=== PATIENT | female | born 1945 | race Caucasian/White ===

== ENCOUNTER 2016-08-18 02:53 | Observation (INO) | payer OTHER ==
--- NOTE | 2016-08-18 03:35 | PDOC ---
History of Present Illness - General History Source: Patient Exam Limitations: No Limitations - History of Present Illness Initial Comments: 08/18/16 04:11 The patient is a 71-year-old female, with a significant past medical history of epilepsy(on topiramate), AFib(on warfarin), CAD, asthma, COPD, PE (2012), hypertension, hyperlipidemia, and hypothyroidism, who presents to the emergency department complaining of chest pain that last night. The patient reports she was sleeping when she began to feel a sharp pain that woke her out of her sleep. The patient initially rated the pain as a 9/10, but has since become dull in nature and now rated as a 7/10. The patient states her pain radiated and down her left arm and into the lower left aspect of her back. She reports she has experienced previous episodes of chest pain in the past, but typically the chest pain ceases. During todays episode she reports taking nitroglycerin with no relief. The patient reports associated SOB, but denies any nausea, vomiting, diaphoresis, or palpitations. She also reports general malaise and weakness for the past 2-3 days. The patient denies any fever, chills, cough, headache, and dizziness. The patient denies dysuria, frequency, urgency, and hematuria. Allergies: None reported. Past Surgical History: Lung biopsy, thoracotomy Social History: Former smoker (Quit in 1988). Denies alcohol or drug use. Lives with son and sister. Family History: Mother stomach cancer, sister breast cancer, brother CAD, and father emphysema. <Jorge Stringer - Last Filed: 08/18/16 05:59> - General History Source: Patient <Nino Corado - Last Filed: 08/18/16 06:00> - General Stated Complaint: SHORTNESS OF BREATH Time Seen by Provider: 08/18/16 03:35 Past History <Jorge Stringer - Last Filed: 08/18/16 05:59> - Past Medical History Anemia: No Asthma: Yes Cancer: No Cardiac Disorders: Yes (CAD, "irregular heart beat") CVA: No COPD: (SOB) CHF: No Dementia: No Diabetes: No GI Disorders: Yes (RECTAL BLEEDING) Disorders: No HTN: Yes Hypercholesterolemia: Yes Liver Disease: No Suicide Attempt (Hx): No Seizures: Yes (EPILEPSY) Thyroid Disease: Yes (HYPO) - Surgical History Abdominal Surgery: No Appendectomy: No Cardiac Surgery: No Cholecystectomy: No Gastric Stapling: No GI Surgery: No Lung Surgery: Yes (BX) Neurologic Surgery: No Orthopedic Surgery: No - Immunization History Td Vaccination: Yes TDAP Vaccination: Yes Immunization Up to Date: Yes - Psycho/Social/Smoking Cessation Hx Anxiety: No Suicidal Ideation: No Smoking Status: Yes Smoking History: Former smoker Have you smoked in the past 12 months: No Number of Cigarettes Smoked Daily: 0 If you are a former smoker, when did you quit?: 1988 Hx Alcohol Use: No Drug/Substance Use Hx: No Substance Use Type: None Hx Substance Use Treatment: No <Nino Corado - Last Filed: 08/18/16 06:00> - Past Medical History Allergies/Adverse Reactions: Allergies Allergy/AdvReac Type Severity Reaction Status Date / Time No Known Drug Allergies Allergy Verified 08/18/16 04:10 Home Medications: Ambulatory Orders Aspirin [ASA -] 81 mg PO DAILY 03/10/12 Atorvastatin Ca [Lipitor] 40 mg PO DAILY 03/10/12 Calcium Carbonate/Vitamin D3 [Calcium 600-Vit D3 200 Tablet] 1 each PO BID 03/10 Topiramate 25 mg PO BID 03/10/12 Warfarin Sodium 3 mg PO ASDIR 09/22/13 Furosemide [Lasix -] 40 mg PO DAILY 06/18/15 Levothyroxine [Synthroid -] 50 mcg PO DAILY 06/18/15 Multivit-Min/FA/Lycopen/Lutein [Centrum Silver Tablet] 1 each PO DAILY 08/31/15 Albuterol Sulfate Inhaler - [Ventolin HFA Inhaler -] 2 inh PO PRN PRN 09/01/15 Anastrozole [Arimidex -] 1 mg PO DAILY 08/18/16 Metoprolol Tartrate 25 mg PO BID 08/18/16 Raloxifene HCl 60 mg PO DAILY 08/18/16 Review of Systems - Review of Systems Able to Perform ROS?: Yes Comments:: 08/18/16 04:11 CONSTITUTIONAL: Present: +generalized weakness, +fatigue Absent: fever, chills, diaphoresis, malaise, loss of appetite HEENT: Absent: rhinorrhea, nasal congestion, throat pain, throat swelling, difficulty swallowing, mouth swelling, ear pain, eye pain, visual Changes CARDIOVASCULAR: Present: +chest pain radiating into her back Absent: syncope, palpitations, irregular heart rate, lightheadedness, peripheral edema RESPIRATORY: Present: +shortness of breath Absent: cough, dyspnea with exertion, orthopnea, wheezing, stridor, hemoptysis GASTROINTESTINAL: Absent: abdominal pain, abdominal distension, nausea, vomiting, diarrhea, constipation, melena, hematochezia GENITOURINARY: Absent: dysuria, frequency, urgency, hesitancy, hematuria, flank pain, genital pain MUSCULOSKELETAL: Absent: myalgia, arthralgia, joint swelling SKIN: Absent: rash, itching, pallor HEMATOLOGIC/IMMUNOLOGIC: Absent: easy bleeding, easy bruising, lymphadenopathy, frequent infections ENDOCRINE: Absent: unexplained weight gain, unexplained weight loss, heat intolerance, cold intolerance NEUROLOGIC: Absent: headache, focal weakness or paresthesias, dizziness, unsteady gait, seizure, mental status changes, bladder or bowel incontinence PSYCHIATRIC: Absent: anxiety, depression, suicidal or homicidal ideation, hallucinations. <Jorge Stringer - Last Filed: 08/18/16 05:59> *Physical Exam - Vital Signs Last Vital Signs Temp Pulse Resp BP Pulse Ox 97.8 F 62 17 108/76 94 L 08/18/16 03:53 08/18/16 03:53 08/18/16 03:53 08/18/16 03:53 08/18/16 03:53 - Physical Exam Comments: 08/18/16 04:12 GENERAL: Well developed, well nourished. Awake and alert. No acute distress. HEENT: Normocephalic, atraumatic. PERRLA, EOMI. No conjunctival pallor. Sclera are non- icteric. Moist mucous membranes. Oropharynx is clear. NECK: Supple. Full ROM. No JVD. Carotid pulses 2+ and symmetric, without bruits. No thyromegaly. No lymphadenopathy. CARDIOVASCULAR: Regular rate and rhythm. No murmurs, rubs, or gallops. Distal pulses are 2+ and symmetric. PULMONARY: +Diminished breath sounds bilaterally. No evidence of respiratory distress. No wheezing, rales or rhonchi. ABDOMINAL: Soft. Non-tender. Non-distended. No rebound or guarding. No organomegaly. Normoactive bowel sounds. MUSCULOSKELETAL Normal range of motion at all joints. No bony deformities or tenderness. No CVA tenderness. EXTREMITIES: No cyanosis. No clubbing. No edema. No calf tenderness. SKIN: Warm and dry. Normal capillary refill. No rashes. No jaundice. NEUROLOGICAL: Alert, awake, appropriate. Cranial nerves 2-12 intact. No deficits to light touch and temperature in face, upper extremities and lower extremities. No motor deficits in the in face, upper extremities and lower extremities. Normoreflexic in the upper and lower extremities. Normal speech. Toes are down- going bilaterally. Gait is normal without ataxia. PSYCHIATRIC: Cooperative. Good eye contact. Appropriate mood and affect. <Jorge Stringer - Last Filed: 08/18/16 05:59> Heart Score/ECG Review - ECG Impressions Comment:: 08/18/16 04:13 Vent. rate: 70 bpm IMPRESSION: Normal sinus rhythm. Left bundle branch block. <Jorge Stringer - Last Filed: 08/18/16 05:59> ED Treatment Course - LABORATORY CBC & Chemistry Diagram: 08/18/16 04:20 08/18/16 04:24 <Jorge Stringer - Last Filed: 08/18/16 05:59> - LABORATORY CBC & Chemistry Diagram: 08/18/16 04:20 08/18/16 04:24 <Nino Corado - Last Filed: 08/18/16 06:00> Medical Decision Making - Medical Decision Making 08/18/16 06:00 Dr. Corado: The scribe's documentation has been prepared under my direction and personally reviewed by me in its entirery. I confirm that the note above accurately reflects all work, treatment, procedures, and medical decision making performed by me. <Nino Corado - Last Filed: 08/18/16 06:00> *DC/Admit/Observation/Transfer - Attestations Scribe Attestion: 08/18/16 04:13 Documentation prepared by Jorge Stringer, acting as medical assistant dermatology for Nino Corado DO. <Jorge Stringer - Last Filed: 08/18/16 05:59> - Discharge Dispostion Admit: Yes <Nino Corado - Last Filed: 01/20/17 06:00> Diagnosis at time of Disposition: CAD (coronary artery disease), Chest pain - Discharge Dispostion Condition at time of disposition: Fair
[2016-08-18 04:03] VITALS: BMI 32.4
[2016-08-18 04:37] LABS: BASOPHIL 0.8 % (0-2.0); EOSINOPHIL 0.2 % (0-4.5); MCH 29.1 pg (25.7-33.7); MCHC 32.7 g/dl (32.0-36.0); MEAN PLT VOLUME 8.5 fl (7.5-11.1); NEUTROPHILS 77.1 % (42.8-82.8); PLATELET COUNT 294 K/MM3 (134-434); RDW 15.3 % (11.6-15.6); WHITE BLOOD COUNT 8.8 K/mm3 (4.0-10.0)
[2016-08-18 04:47] LABS: INR 3.27 (0.82-1.09); PROTHROMBIN TIME (PATIENT) 36.9 SEC (9.98-11.88)
[2016-08-18 04:59] LABS: BILIRUBIN,TOTAL 0.2 mg/dL (0.2-1.0); CALCIUM 8.7 mg/dL (8.5-10.1); TOT PROT 6.5 g/dl (6.4-8.2)
[2016-08-18 05:03] LABS: TROPONIN I < 0.02 ng/ml (0.00-0.05)
[2016-08-18] MEDS ORDERED: LEVOTHYROXINE NA 25 MCG TABLET (FP) ONE (09:11)
[2016-08-18] MEDS: LEVOTHYROXINE NA 50 MCG TABLET (FP) PO SCH (09:14)
[2016-08-18] MEDS ORDERED: HEPARIN NA (PORCINE) 5,000 UNITS/ML 1ML VIAL SQ SCH (10:00)
[2016-08-18] MEDS ORDERED: PATIENT'S OWN MEDICATION (NON-FORMULARY) (Multivit-Min/Fa/Lycopen/Lutein [Centrum Silver T PO SCH (10:00)
[2016-08-18] MEDS: ASPIRIN 81 MG CHEWABLE TABLETS PO SCH (10:01)
[2016-08-18] MEDS: ANASTROZOLE 1 MG TABLET PO SCH (10:01)
[2016-08-18] MEDS: TOPIRAMATE 25 MG TABLET (FP) PO SCH ×2 (10:02→22:28)
[2016-08-18] MEDS: METOPROLOL TARTRATE 25 MG TABLET (FP) PO SCH ×2 (10:02→22:05)
[2016-08-18] MEDS: FUROSEMIDE 40 MG TABLET (FP) PO SCH (10:02)
[2016-08-18 10:17] LABS: TROPONIN I < 0.02 ng/ml (0.00-0.05)
--- NOTE | 2016-08-18 10:59 | EKG ---
Test Reason : Blood Pressure : / mmHG Vent. Rate : 070 BPM Atrial Rate : 070 BPM P-R Int : 174 ms QRS Dur : 138 ms QT Int : 426 ms P-R-T Axes : 078 -02 060 degrees QTc Int : 460 ms POOR DATA QUALITY, INTERPRETATION MAY BE ADVERSELY AFFECTED NORMAL SINUS RHYTHM LEFT BUNDLE BRANCH BLOCK ABNORMAL ECG WHEN COMPARED WITH ECG OF 09-JUN-2016 03:45, NO SIGNIFICANT CHANGE WAS FOUND Confirmed by SUSAN SANTIAGO MD ([id number]) on 08/18/2016 10:58:44 AM Referred By: Confirmed By:SUSAN SANTIAGO MD
--- NOTE | 2016-08-18 11:45 | HP ---
CHIEF COMPLAINT: Chest pain and shortness of breath PCP: Dr. Ponce @ [facility] Care [address] [facility], [place] [address], [address] Julien, [employer] HISTORY OF PRESENT ILLNESS: Mrs. Conley is a 71 year old female with a significant PMHx of epilepsy (last seizure 10 years ago - on Topiramate) Atrial fibrillation (on Coumadin), CAD, asthma, COPD, PE in 2012, HTN, hyperlipidemia and hypothyroidism. She presented to the ED with complaints of chest pain that began last night. She stated that she was asleep and was awoken when she began to feel a "very sharp pain" midsternal that radiated down her left arm and to her left side of her back. She states that she has had a similar pain before but it usually subsides quickly. However, during last night's episodes, she took Nitroglycerin without relief. She reports associated shortness of breath with the chest pain . She denies nausea, vomiting, diaphoresis, palpitations, headache, dizziness, dysuria, frequency, urgency or hematuria. ER course was notable for: (1) Chest pain associated shortness of breath (2) INR 3.27 (3) Hyperglycemia: 158 (4) BNP 323 Recent Travel: denies PAST MEDICAL HISTORY: epilepsy(on topiramate), AFib (on warfarin), CAD, asthma , COPD, PE (2012), hypertension, hyperlipidemia, and hypothyroidism, PAST SURGICAL HISTORY: Lung biopsy, thoractomy Social History: Smoking: former smoker - quit in 1988 Alcohol: denies Drugs: denies Family History: Mother stomach cancer, sister breast cancer, brother CAD, and father emphysema She lives with her family Allergies: none No Known Drug Allergies Allergy (Verified 08/18/16 04:10) HOME MEDICATIONS: Medication Instructions Recorded Aspirin [ASA -] 81 mg PO DAILY 03/10/12 Atorvastatin Ca [Lipitor] 40 mg PO DAILY 03/10/12 Calcium Carbonate/Vitamin D3 1 each PO BID 03/10/12 [Calcium 600-Vit D3 200 Tablet] Topiramate 25 mg PO BID 03/10/12 Warfarin Sodium 3 mg PO ASDIR 09/22/13 Furosemide [Lasix -] 40 mg PO DAILY 06/18/15 Levothyroxine [Synthroid -] 50 mcg PO DAILY 06/18/15 Multivit-Min/FA/Lycopen/Lutein 1 each PO DAILY 08/31/15 [Centrum Silver Tablet] Albuterol Sulfate Inhaler - 2 inh PO PRN PRN 09/01/15 [Ventolin HFA Inhaler -] Anastrozole [Arimidex -] 1 mg PO DAILY 08/18/16 Metoprolol Tartrate 25 mg PO BID 08/18/16 Raloxifene HCl 60 mg PO DAILY 08/18/16 REVIEW OF SYSTEMS CONSTITUTIONAL: Absent: fever, chills, diaphoresis, generalized weakness, malaise, loss of appetite, weight change HEENT: Absent: rhinorrhea, nasal congestion, throat pain, throat swelling, difficulty swallowing, mouth swelling, ear pain, eye pain, visual changes CARDIOVASCULAR: PRESENT: chest pain with inspiration, intermittent shortness of beath, no coughing RESPIRATORY: Absent: cough, dyspnea with exertion, orthopnea, wheezing, stridor, hemoptysis GASTROINTESTINAL: Absent: abdominal pain, abdominal distension, nausea, vomiting, diarrhea, constipation, melena, hematochezia GENITOURINARY: Absent: dysuria, frequency, urgency, hesitancy, hematuria, flank pain, genital pain MUSCULOSKELETAL: Absent: myalgia, arthralgia, joint swelling, back pain, neck pain SKIN: Absent: rash, itching, pallor HEMATOLOGIC/IMMUNOLOGIC: On Coumadin for PE, Afib, DVT ENDOCRINE: Absent: unexplained weight gain, unexplained weight loss, heat intolerance, cold intolerance NEUROLOGIC: Absent: headache, focal weakness or paresthesias, dizziness, unsteady gait, seizure, mental status changes, bladder or bowel incontinence PSYCHIATRIC: Absent: anxiety, depression, suicidal or homicidal ideation, hallucinations. PHYSICAL EXAMINATION Vital Signs - 24 hr 08/18/16 07:43 Respiratory 18 Rate O2 Sat by Pulse 98 Oximetry (%) GENERAL: Awake, alert, and fully oriented, in no acute distress. HEAD: Normal with no signs of trauma. EYES: Pupils equal, round and reactive to light, extraocular movements intact, sclera anicteric, conjunctiva clear. No lid lag. EARS, NOSE, THROAT: Ears normal, nares patent, oropharynx clear without exudates. Moist mucous membranes. NECK: Normal range of motion, supple without lymphadenopathy, JVD, or masses. LUNGS: Breath sounds equal, clear to auscultation bilaterally, no accessory muscle use HEART: Regular rate and rhythm ABDOMEN: Soft, nontender, not distended, normoactive bowel sounds, no guarding, no rebound, no masses. No hepatomegaly or splenomegaly. UPPER EXTREMITIES: No peripheral edema. LOWER EXTREMITIES: No peripheral edema. NEUROLOGICAL: Normal speech. Normal gait. PSYCHIATRIC: Cooperative. Good eye contact. Appropriate mood and affect. SKIN: Warm, dry, normal turgor, no rashes or lesions noted. Laboratory Results - last 24 hr 08/18/16 09:20 Creatine Kinase 44 Troponin I < 0.02 ASSESSMENT/PLAN: Mrs. Conley is a 71 year old female with a significant PMHx of epilepsy (last seizure 10 years ago - on Topiramate) Atrial fibrillation (on Coumadin), CAD, asthma, COPD, PE in 2012, HTN, hyperlipidemia, breast mass? (on Anastrazole) and hypothyroidism. She presented to the ED with complaints of chest pain that began last night. She stated that she was asleep and was awoken when she began to feel a "very sharp pain" midsternal that radiated down her left arm and to her left side of her back. She states that she has had a similar pain before but it usually subsides quickly. However, during last night's episodes, she took Nitroglycerin without relief. She reports associated shortness of breath with the chest pain . She denies nausea, vomiting, diaphoresis, palpitations, headache, dizziness, dysuria, frequency, urgency or hematuria. Cardiology: Chest pain - acute Assessment/Plan: Troponins negative x 2, awaiting 3rd troponin Chest xray 08/18/2016 unrevealing EKG 08/18/2016 Normal sinus rhythm with left BBB, abnormal EKG when compared with EKG of 06/09/2016, no significant changes Echo ordered On ASA 81mg, Statin, on Metoprolol Tartrate 25mg BID Last Echo 10/25/15 which shows LV mildly reduced, mild>mod mitral regurg, mild to mod, tricuspid regurg, right vent. sys pressure 30-40mmHg, mild aortic stenosis Cardiology consulted Hypertension - chronic Assessment/Plan: Monitor BP Well controlled on current regimen. Hyperlipidemia - chronic Assessment/Plan: On Lipitor 40mg Lipid panel in a.m. Atrial fibrillation - rate controlled Assessment/Plan: On Coumadin, rate controlled INR 3.27 - On Coumadin 3mg on Sunday, Sunday and Coumadin 4mg on Sunday thru Sunday Will hold Coumadin tonight secondary to INR. 3.27 Will recheck INR in a.m. Pulmonary Shortness of breath - acute Assessment/Plan: Shortness of breath with deep inspiration, currently tolerating room air Chest xray 08/18/2016 unrevealing Oxygen at [address]N Will order CT/CTA to evaluate for PE Asthma/COPD - chronic Assessment/Plan: stable Duonebs PRN Neurology Epilepsy - chronic Assessment/Plan: Last seizure 10 years ago. Seizure precautions Endocrine: Hyperglycemia on admission Assessment/Plan: Check HgbA1c in a.m. F.E.N. Fluids: Tolerating PO intake Electrolytes: within normal limits Nutrition: Low sodium diet Prophylaxis: DVT: on warfarin, INR therapeutic - hold tonight dose, INR in a.m. Disposition: Continues to require observation for acute chest pain and shortness of breath. Awaiting cardiology consult and CTA. Full Code. Visit type - Emergency Visit Emergency Visit: Yes ED Registration Date: 08/18/16 Care time: The patient presented to the Emergency Department on the above date and was hospitalized for further evaluation of their emergent condition. - New Patient This patient is new to me today: Yes Date on this admission: 08/18/16 - Critical Care Critical Care patient: No
[2016-08-18 16:46] LABS: TROPONIN I < 0.02 ng/ml (0.00-0.05)
[2016-08-18] MEDS ORDERED: WARFARIN NA 2 MG TABLET (UD) PO SCH (18:00)
[2016-08-18] MEDS ORDERED: PT OWN MED DRAWER 7, Y5N ONE (21:57)
[2016-08-18] MEDS: ATORVASTATIN CA 40 MG TABLET (FP) PO SCH (22:05)
[2016-08-19] MEDS: LEVOTHYROXINE NA 50 MCG TABLET (FP) PO SCH (06:01)
[2016-08-19] MEDS ORDERED: PT OWN MED DRAWER 7, Y5N ONE ×3 (07:52→21:38)
[2016-08-19 08:18] LABS: INR 2.79 (0.82-1.09); PROTHROMBIN TIME (PATIENT) 31.3 SEC (9.98-11.88)
[2016-08-19 09:25] LABS: BASOPHIL 1.1 % (0-2.0); EOSINOPHIL 3.5 % (0-4.5); MCH 29.4 pg (25.7-33.7); MCHC 32.6 g/dl (32.0-36.0); MEAN CELL VOLUME 90.2 fl (80-96); MEAN PLT VOLUME 8.7 fl (7.5-11.1); NEUTROPHILS 50.3 % (42.8-82.8); PLATELET COUNT 251 K/MM3 (134-434); RDW 15.3 % (11.6-15.6); WHITE BLOOD COUNT 7.5 K/mm3 (4.0-10.0)
[2016-08-19] MEDS: ANASTROZOLE 1 MG TABLET PO SCH (09:48)
[2016-08-19] MEDS: MULTIVITAMINS (DAILY MVI) TABLET (FP) PO SCH (09:48)
[2016-08-19] MEDS: TOPIRAMATE 25 MG TABLET (FP) PO SCH ×2 (09:49→21:43)
[2016-08-19] MEDS: ASPIRIN 81 MG CHEWABLE TABLETS PO SCH (09:51)
[2016-08-19] MEDS: FUROSEMIDE 40 MG TABLET (FP) PO SCH (09:51)
[2016-08-19] MEDS: METOPROLOL TARTRATE 25 MG TABLET (FP) PO SCH ×2 (09:51→21:43)
--- NOTE | 2016-08-19 10:23 | PN ---
Physical Exam: SUBJECTIVE: Patient seen and examined INR now 2.79 will resume coumadin 4 mg tonight Reports improvement in her SOB and chest pain No further c/o nausea or vomiting OBJECTIVE: Vital Signs Period Temp Pulse Resp BP Sys/Landis Pulse Ox Last 24 Hr 97.6 F-98.2 F 56-70 18-20 104-121/54-56 GENERAL: The patient is awake, alert, and fully oriented, in no acute distress. HEAD: Normal with no signs of trauma. EYES: PERRL, extraocular movements intact, sclera anicteric, conjunctiva clear. ENT: Ears normal, nares patent, oropharynx clear without exudates, moist mucous membranes. NECK: Trachea midline, full range of motion, supple. LUNGS: Breath sounds clear to auscultation bilaterally, diminished BS bibasilar. no wheezes, no crackles, no accessory muscle use. HEART: S1, S2 rrr ABDOMEN: Soft, nontender, nondistended, normoactive bowel sounds, no guarding, no rebound, no hepatosplenomegaly, no masses. EXTREMITIES: 2+ pulses, warm, well-perfused, Trace LE edema. NEUROLOGICAL: Cranial nerves II through XII grossly intact. Normal speech, gait not observed. PSYCH: Normal mood, normal affect. SKIN: Warm, dry, normal turgor Laboratory Results - last 24 hr 08/19/16 08/19/16 08/19/16 05:45 05:45 05:45 WBC RBC Hgb Hct MCV MCHC RDW Plt Count MPV Neutrophils % Lymphocytes % Monocytes % Eosinophils % Basophils % INR 2.79 H Hemoglobin A1c % Triglycerides 106 D Cholesterol 120 Total LDL Cholesterol 63 HDL Cholesterol 50 TSH 3.04 D 08/19/16 08/19/16 05:45 07:20 WBC 7.5 RBC 3.75 Hgb 11.0 Hct 33.9 MCV 90.2 MCHC 32.6 RDW 15.3 Plt Count 251 MPV 8.7 Neutrophils % 50.3 D Lymphocytes % 39.5 D Monocytes % 5.6 D Eosinophils % 3.5 D Basophils % 1.1 INR Hemoglobin A1c % 6.1 H Triglycerides Cholesterol Total LDL Cholesterol HDL Cholesterol TSH Active Medications Generic Name Dose Route Start Last Admin Trade Name Freq PRN Reason Stop Dose Admin Anastrozole 1 mg 08/18/16 10:00 08/19/16 09:48 Arimidex - PO 1 mg DAILY GURVINDER Administration Aspirin 81 mg 08/18/16 10:00 08/19/16 09:51 Asa - PO 81 mg DAILY GURVINDER Administration Atorvastatin Calcium 40 mg 08/18/16 22:00 08/18/16 22:05 Lipitor - PO 40 mg HS GURVINDER Administration Furosemide 40 mg 08/18/16 10:00 08/19/16 09:51 Lasix - PO 40 mg DAILY GURVINDER Administration Levothyroxine Sodium 50 mcg 08/18/16 07:00 08/19/16 06:01 Synthroid - PO 50 mcg AM GURVINDER Administration Metoprolol Tartrate 25 mg 08/18/16 10:00 08/19/16 09:51 Lopressor - PO 25 mg BID GURVINDER Administration Multivitamins/Minerals/Vitamin C 1 tab 08/19/16 10:00 08/19/16 09:48 Tab-A-Vit - PO 1 tab DAILY GURVINDER Administration Non-Formulary Medication 60 mg 08/18/16 10:00 Raloxifene Hcl [Raloxifene Hcl] PO DAILY [facility] Topiramate 25 mg 08/18/16 10:00 08/19/16 09:49 Topamax - PO 25 mg BID GURVINDER Administration Warfarin Sodium 4 mg 08/19/16 18:00 Coumadin - PO DAILY@1800 [facility] ASSESSMENT/PLAN: 71 y/o female with PMHx of epilepsy (last seizure 10 years ago) on Topamax, AFib (on AC), DVT, PE 2012, CAD, asthma, COPD, HTN, HLD, breast mass (on arimidex) and hypothyroidism. She presented to the ED with complaints of chest pain that began last night that radiates down her left arm and to her left side of her back. She took Nitroglycerin without relief. She reports associated shortness of breath with the chest pain. In the ER her INR was found to be 3.27 and her coumadin was held. CTA negative for PE, cxr neg for active disease and ECG NSR witrh left BBB vent rate 70 bpm. She was admit to Tele observation for further eval and management of her SOB and chest pain. 1 Chest pain: improved -continuous tele monitoring -enzymes x 3 neg -c/w asa 81 mg BB and statin -oxygen prn -cardio consult pending 2 Hypertension: BP within acceptable limits -Monitor BP -low salt diet -c/w BB and home dose of lasix 3 Hyperlipidemia: lipid panel within acceptable limits -continue Lipitor 40mg 4 Afib on coumadin: INR today 2.79 -to resume coumadin 4 mg this evening. -Of note patient was on at home Coumadin 3mg on Sunday, Sunday and Coumadin 4mg on Sunday thru Sunday -INR 08/20 -Continue with BB 5 Asthama/COPD: Still mild dyspnea at rest -CTA neg -cxr no active disease -oxygen as needed -repeat cxr -duonebs prn 6 Epilepsy controlled . Last seizure 10 years ago. -C/W topamax as ordered -Seizure precautions 7 A1c slightly above goal (6.1) -diet changed to diabetic sodium controlled -fingersticks BIDAC-if above goal will need to add ISS 8 hypothyroidism:TSH within acceptable limits -c/w synthroid 9 osteoporosis: -c/w raloxifene 10 DVP PPx -on Coumadin Disposition: Continues to require observation for acute chest pain and shortness of breath. Awaiting cardiology consult and repeat cxr. Full Code. Visit type - Emergency Visit Emergency Visit: No - New Patient This patient is new to me today: Yes Date on this admission: 08/21/16 - Critical Care Critical Care patient: No
[2016-08-19 10:46] LABS: ALBUMIN 2.8 g/dl (3.4-5.0); BILIRUBIN,TOTAL 0.4 mg/dL (0.2-1.0); CALCIUM 8.8 mg/dL (8.5-10.1); TOT PROT 5.9 g/dl (6.4-8.2)
[2016-08-19] MEDS ORDERED: ALBUTEROL SO4 2.5/IPRATROPIUM 0.5 INH SOL 3 ML VIAL.NEB. NEB PRN (12:47)
[2016-08-19] MEDS ORDERED: ACETAMINOPHEN 325 MG TABLET (FP) PO PRN (15:49)
[2016-08-19] MEDS: WARFARIN NA 2 MG TABLET (UD) PO SCH (17:11)
[2016-08-19] MEDS: ATORVASTATIN CA 40 MG TABLET (FP) PO SCH (21:43)
[2016-08-20] MEDS: LEVOTHYROXINE NA 50 MCG TABLET (FP) PO SCH (06:49)
[2016-08-20 07:40] LABS: BASOPHIL 1.3 % (0-2.0); EOSINOPHIL 2.6 % (0-4.5); MCH 29.5 pg (25.7-33.7); MCHC 33.1 g/dl (32.0-36.0); MEAN CELL VOLUME 89.2 fl (80-96); MEAN PLT VOLUME 8.2 fl (7.5-11.1); NEUTROPHILS 56.3 % (42.8-82.8); PLATELET COUNT 263 K/MM3 (134-434); RDW 15.1 % (11.6-15.6); WHITE BLOOD COUNT 9.9 K/mm3 (4.0-10.0)
--- NOTE | 2016-08-20 07:52 | CONSULT ---
Consult - text type - Consultation Consultation Note: Cardiology 71 year old female with a significant PMHx of epilepsy (last seizure 10 years ago - on Topiramate) Atrial fibrillation (on Coumadin), CAD, asthma, COPD, PE in 2013, HTN, hyperlipidemia and hypothyroidism. She presented to the ED with complaints of chest pain, dyspnea, LUE symptoms. . She denies nausea, vomiting, diaphoresis, palpitations, headache, dizziness, dysuria, frequency, urgency or hematuria. Recent Travel: denies PAST MEDICAL HISTORY: epilepsy(on topiramate), AFib (on warfarin), CAD, asthma , COPD, PE (2012), hypertension, hyperlipidemia, and hypothyroidism, PAST SURGICAL HISTORY: Lung biopsy, thoractomy Social History: Smoking: former smoker - quit in 1988 Alcohol: denies Drugs: denies Family History: Mother stomach cancer, sister breast cancer, brother CAD, and father emphysema She lives with her family Allergies: none No Known Drug Allergies Allergy (Verified 08/18/16 04:10) PE: normal cardio-pulmonary exam abdomen soft no leg edema Impression: atypical chronic cardiac symptoms no evidence of ID or CHF NSR, LBBB EF 40-45% chronic, severe MR last nuclear stress test 10/12 unremarkable last [facility] 2013 normal paroxysmal afib in past, PE on lifelong warfarin lipids umremarkable Rec: Lexiscan nuclear stress test
[2016-08-20 08:09] LABS: INR 2.09 (0.82-1.09); PROTHROMBIN TIME (PATIENT) 23.3 SEC (9.98-11.88)
[2016-08-20 08:23] LABS: ALBUMIN 2.9 g/dl (3.4-5.0); BILIRUBIN,TOTAL 0.4 mg/dL (0.2-1.0); CALCIUM 8.4 mg/dL (8.5-10.1); TOT PROT 6.2 g/dl (6.4-8.2)
[2016-08-20] MEDS: MULTIVITAMINS (DAILY MVI) TABLET (FP) PO SCH (09:58)
[2016-08-20] MEDS: FUROSEMIDE 40 MG TABLET (FP) PO SCH (09:58)
[2016-08-20] MEDS: [UNRECOGNIZED DRUG - OTHER] PO SCH (09:58)
[2016-08-20] MEDS: METOPROLOL TARTRATE 25 MG TABLET (FP) PO SCH ×2 (09:58→23:00)
[2016-08-20] MEDS: ASPIRIN 81 MG CHEWABLE TABLETS PO SCH (09:58)
[2016-08-20] MEDS: ANASTROZOLE 1 MG TABLET PO SCH (09:58)
[2016-08-20] MEDS: TOPIRAMATE 25 MG TABLET (FP) PO SCH ×2 (09:59→21:57)
--- NOTE | 2016-08-20 11:38 | PN ---
Physical Exam: SUBJECTIVE: Patient seen and examined. She still has residual chest pain, to which refers to her L arm. She says it is improved from when she was admitted. OBJECTIVE: Vital Signs Period Temp Pulse Resp BP Sys/Landis Pulse Ox Last 24 Hr 97.7 F-98.2 F 60-70 20-20 111-143/60-72 96 PE Neuro: alert, awake, cn 2-12 intact Pulm: L base crackles, left posterior lung incision healed CV: s1 s2 rrr no mrg Abd: s nt nd +bs, abd skin fold Ext: trace le edema, +DP pulses CBCD WBC 9.9 K/mm3 (4.0-10.0) D 08/20/16 05:20 RBC 3.83 M/mm3 (3.60-5.2) 08/20/16 05:20 Hgb 11.3 GM/dL (10.7-15.3) 08/20/16 05:20 Hct 34.2 % (32.4-45.2) 08/20/16 05:20 MCV 89.2 fl (80-96) 08/20/16 05:20 MCHC 33.1 g/dl (32.0-36.0) 08/20/16 05:20 RDW 15.1 % (11.6-15.6) 08/20/16 05:20 Plt Count 263 K/MM3 (134-434) 08/20/16 05:20 MPV 8.2 fl (7.5-11.1) 08/20/16 05:20 CMP Sodium 143 mmol/L (136-145) 08/20/16 05:20 Potassium 3.5 mmol/L (3.5-5.1) 08/20/16 05:20 Chloride 107 mmol/L (98-107) 08/20/16 05:20 Carbon Dioxide 27 mmol/L (21-32) 08/20/16 05:20 Anion Gap 9 (8-16) 08/20/16 05:20 BUN 21 mg/dL (7-18) H D 08/20/16 05:20 Creatinine 1.0 mg/dL (0.55-1.02) 08/20/16 05:20 Creat Clearance w eGFR 54.66 (>60) 08/20/16 05:20 Calcium 8.4 mg/dL (8.5-10.1) L 08/20/16 05:20 Total Bilirubin 0.4 mg/dL (0.2-1.0) 08/20/16 05:20 AST 15 U/L (15-37) 08/20/16 05:20 ALT 17 U/L (12-78) 08/20/16 05:20 Alkaline Phosphatase 71 U/L (45-117) 08/20/16 05:20 Total Protein 6.2 g/dl (6.4-8.2) L 08/20/16 05:20 Albumin 2.9 g/dl (3.4-5.0) L 08/20/16 05:20 08/20/16 05:20 INR 2.09 H 08/18/16 08/18/16 08/18/16 04:24 09:20 15:30 Hemoglobin A1c % Troponin I < 0.02 < 0.02 B-Natriuretic Peptide 323.82 H Triglycerides Cholesterol Total LDL Cholesterol HDL Cholesterol TSH 08/18/16 08/19/16 08/19/16 15:30 05:45 05:45 Hemoglobin A1c % Troponin I < 0.02 B-Natriuretic Peptide Triglycerides 106 D Cholesterol 120 Total LDL Cholesterol 63 HDL Cholesterol 50 TSH 3.04 D Active Medications Generic Name Dose Route Start Last Admin Trade Name Freq PRN Reason Stop Dose Admin Acetaminophen 650 mg 08/19/16 15:49 Tylenol - PO Q6H PRN FEVER OR PAIN Albuterol/Ipratropium 1 amp 08/19/16 12:47 08/19/16 18:14 Duoneb - NEB 1 amp Q6H PRN Administration SHORTNESS OF BREATH Anastrozole 1 mg 08/18/16 10:00 08/20/16 09:58 Arimidex - PO 1 mg DAILY GURVINDER Administration Aspirin 81 mg 08/18/16 10:00 08/20/16 09:58 Asa - PO 81 mg DAILY GURIVNDER Administration Atorvastatin Calcium 40 mg 08/18/16 22:00 08/19/16 21:43 Lipitor - PO 40 mg HS GURVINDER Administration Docusate Sodium 100 mg 08/20/16 10:00 Colace - PO DAILY GURVINDER Furosemide 40 mg 08/18/16 10:00 08/20/16 09:58 Lasix - PO 40 mg DAILY GURVINDER Administration Levothyroxine Sodium 50 mcg 08/18/16 07:00 08/20/16 06:49 Synthroid - PO 50 mcg AM GURVINDER Administration Metoprolol Tartrate 25 mg 08/18/16 10:00 08/20/16 09:58 Lopressor - PO 25 mg BID GURVINDER Administration Multivitamins/Minerals/Vitamin C 1 tab 08/19/16 10:00 08/20/16 09:58 Tab-A-Vit - PO 1 tab DAILY GURVINDER Administration (Raloxifenpatient's 60 mg 08/20/16 10:00 08/20/16 09:58 Own Medication (Non- PO 60 mg Formulary) DAILY GURVINDER Administration Nystatin 1 applic 08/20/16 11:15 Nystop Powder - TP DAILY GURVINDER Topiramate 25 mg 08/18/16 10:00 08/20/16 09:59 Topamax - PO 25 mg BID GURVINDER Administration Warfarin Sodium 4 mg 08/19/16 18:00 08/19/16 17:11 Coumadin - PO 4 mg DAILY@1800 GURVINDER Administration Assessment: 71 year old female with PMHx of epilepsy (last seizure 10 years ago ) on Topamax, AFib (on AC), DVT, PE 2012, CAD, asthma, COPD, HTN, HLD, breast mass (on arimidex) and hypothyroidism admitted with chest pain with associated sob. Plan: 1. Chest pain with typical and atypical features - Nuclear stress test tomorrow - Cont ASA - Cont metoprolol 25mg BID - Cardiology seeing 2. HTN - Controlled - Cont lasix 40mg daily - Cont bb 3. HLD - Continue Lipitor 40mg 4. A fib, controlled - Continue Coumadin 4mg Hs - Daily INR 5. Asthma/COPD/hx of PE - No shortness of breath reported - CTA neg for PE 6. Epilepsy - Last seizure 10 years ago - Cont topamax 7. DM II - Hgb a1c - Diabetic diet 8. Hypothyroidism - Cont Synthroid - TSH wnl 9. Osteoporosis - Cont Raloxifene 10. DVT - on AC Visit type - Emergency Visit Emergency Visit: Yes ED Registration Date: 08/18/16 Care time: The patient presented to the Emergency Department on the above date and was hospitalized for further evaluation of their emergent condition. - New Patient This patient is new to me today: Yes Date on this admission: 08/20/16 - Critical Care Critical Care patient: No
[2016-08-20] MEDS: DOCUSATE SODIUM 100 MG CAPSULE (FP) PO SCH (12:30)
[2016-08-20] MEDS: NYSTATIN POWDER 100,000 UNITS/GM - 15 GM TOPICAL POWDER TP SCH (15:04)
[2016-08-20] MEDS: WARFARIN NA 2 MG TABLET (UD) PO SCH (17:10)
[2016-08-20] MEDS: ATORVASTATIN CA 40 MG TABLET (FP) PO SCH (21:57)
[2016-08-21] MEDS: LEVOTHYROXINE NA 50 MCG TABLET (FP) PO SCH (06:01)
[2016-08-21 07:19] LABS: INR 2.57 (0.82-1.09); PROTHROMBIN TIME (PATIENT) 28.8 SEC (9.98-11.88)
[2016-08-21 07:36] LABS: CALCIUM 8.7 mg/dL (8.5-10.1)
[2016-08-21 07:37] LABS: CREATININE 1.1 mg/dL (0.55-1.02)
[2016-08-21] MEDS ORDERED: DIPYRIDAMOLE STRESS TEST 50 MG in DEXTROSE 5%-WATER - 40 ML IVPB ONE (10:00)
[2016-08-21] MEDS: [UNRECOGNIZED DRUG - OTHER] PO SCH (13:30)
[2016-08-21] MEDS: ASPIRIN 81 MG CHEWABLE TABLETS PO SCH (13:39)
[2016-08-21] MEDS: DOCUSATE SODIUM 100 MG CAPSULE (FP) PO SCH (13:39)
[2016-08-21] MEDS: NYSTATIN POWDER 100,000 UNITS/GM - 15 GM TOPICAL POWDER TP SCH (13:40)
[2016-08-21] MEDS: METOPROLOL TARTRATE 25 MG TABLET (FP) PO SCH (13:40)
[2016-08-21] MEDS: ANASTROZOLE 1 MG TABLET PO SCH (13:40)
[2016-08-21] MEDS: FUROSEMIDE 40 MG TABLET (FP) PO SCH (13:40)
[2016-08-21] MEDS: TOPIRAMATE 25 MG TABLET (FP) PO SCH (13:41)
[2016-08-21] MEDS: MULTIVITAMINS (DAILY MVI) TABLET (FP) PO SCH (13:41)
[2016-08-21 14:49] VITALS: BP 154/76; PULSE 105; TEMP 98.1
--- NOTE | 2016-08-21 15:57 | DS ---
Physical Exam: SUBJECTIVE: Patient seen and examined. No issues, tolerated stress test. Ready to go home OBJECTIVE: Vital Signs Period Temp Pulse Resp BP Sys/Landis Pulse Ox Last 24 Hr 96.3 F-98.1 F 57-105 18-20 114-154/49-76 96-98 PE Neuro: alert, awake, cn 2-12 intact Pulm: L base crackles, left posterior lung incision healed CV: s1 s2 rrr no mrg Abd: s nt nd +bs, abd skin fold Ext: trace le edema, +DP pulses Laboratory Results - last 24 hr 08/20/16 08/21/16 08/21/16 17:06 05:35 05:35 INR 2.57 H Sodium 144 Potassium 3.6 Chloride 106 Carbon Dioxide 27 Anion Gap 11 BUN 22 H Creatinine 1.1 H POC Glucometer 96 Random Glucose 88 Calcium 8.7 08/21/16 06:52 INR Sodium Potassium Chloride Carbon Dioxide Anion Gap BUN Creatinine POC Glucometer 92 Random Glucose Calcium HOSPITAL COURSE: Date of Admission:08/18/16 Date of Discharge: 08/21/16 Minutes to complete discharge: 35 Discharge Summary Reason For Visit: CHEST PAIN,CAD Current Active Problems COPD (chronic obstructive pulmonary disease) (Acute) Chest pain (Acute) Hypokalemia (Acute) Mass of lingula of lung (Acute) Mass of lower lobe of left lung (Acute) Pneumonia (Acute) Subtherapeutic anticoagulation (Acute) Asthma (Chronic) Atrial fibrillation (Chronic) CAD (coronary artery disease) (Chronic) Hyperlipidemia (Chronic) Hypertension (Chronic) Hypothyroidism (Chronic) Seizure disorder (Chronic) Hospital Course: Initial Hospital Course: Briefly, this 71 year old female with a significant PMHx of epilepsy (last seizure 10 years ago - on Topiramate) Atrial fibrillation (on Coumadin), CAD, asthma, COPD, PE in 2012, HTN, HLD, and hypothyroidism, LLL thoracotomy ~10yrs ago presented to the ED with complaints of chest pain that began last night. She stated that she was asleep and was awoken when she began to feel a "very sharp pain" midsternal that radiated down her left arm and to her left side of her back. The pain was sharper than it had been in the past and did not subside on its own. She took Nitroglycerin without relief and had associated shortness of breath with the chest pain Subsequent Hospital Course/Progress Note/Discharge Summary: Assessment: 71 year old female with PMHx of epilepsy (last seizure 10 years ago ) on Topamax, AFib (on AC), DVT, PE 2012, CAD, asthma/COPD, HTN, HLD, breast mass (on arimidex) and hypothyroidism admitted with chest pain with associated sob. Plan: 1. Chest pain with typical and atypical features - Nuclear stress test shows EF 64%, fixed inferior and inferoseptal defect - Cont ASA - Cont metoprolol 25mg BID - D/w results with Dr. garcia, will see patient next week in office, pt aware and agrees 2. HTN - Controlled - Cont lasix 40mg daily - Cont bb 3. HLD - Continue Lipitor 40mg 4. A fib, controlled - Continue Coumadin as directed by home regimen - Daily INR 5. Asthma/COPD/hx of PE - No shortness of breath reported - CTA neg for PE 6. Epilepsy - Last seizure 10 years ago - Cont topamax 7. DM II - Hgb a1c 6.1 - Diabetic diet 8. Hypothyroidism - Cont Synthroid - TSH wnl 9. Osteoporosis - Cont Raloxifene Dispo: - Home with above meds - Cardiology follow up next week, pt aware and agrees to above Condition: Stable - Instructions Diet, Activity, Other Instructions: Dr. Ponce @ [address] [phone] Dr Alcaraz, Transportation Maintenance Specialist Dr. Julien, Business Intern Referrals: Grey Julien MD [Staff Physician] - Lissa Capps MD [Staff Physician] - Laly Lewis MD [Staff Physician] - Disposition: HOME - Home Medications Comprehensive Discharge Medication List: Ambulatory Orders Aspirin [ASA -] 81 mg PO DAILY 03/10/12 Atorvastatin Ca [Lipitor] 40 mg PO DAILY 03/10/12 Calcium Carbonate/Vitamin D3 [Calcium 600-Vit D3 200 Tablet] 1 each PO BID 03/10 Topiramate 25 mg PO BID 03/10/12 Warfarin Sodium 3 mg PO ASDIR 09/22/13 Furosemide [Lasix -] 40 mg PO DAILY 06/18/15 Levothyroxine [Synthroid -] 50 mcg PO DAILY 06/18/15 Multivit-Min/FA/Lycopen/Lutein [Centrum Silver Tablet] 1 each PO DAILY 08/31/15 Albuterol Sulfate Inhaler - [Ventolin HFA Inhaler -] 2 inh PO PRN PRN 09/01/15 Anastrozole [Arimidex -] 1 mg PO DAILY 08/18/16 Metoprolol Tartrate 25 mg PO BID 08/18/16 Raloxifene HCl 60 mg PO DAILY 08/18/16 This patient is new to me today: No Emergency Visit: Yes ED Registration Date: 08/18/16 Care time: The patient presented to the Emergency Department on the above date and was hospitalized for further evaluation of their emergent condition. Critical Care patient: No - Discharge Referral Referred to [facility] No
[2016-08-21] MEDS: WARFARIN NA 2 MG TABLET (UD) PO SCH (17:03)
== END 2016-08-21 18:09 | disposition home or self-care (01) ==
LOC: JER 02:53 → UNDOADMOB 06:03 → INTOOBSV 06:03 → JERBED 06:03 → J4W 14:41 → JERBED 14:41 → J4W 16:09
PROVIDERS: ADMIT Internal Medicine; ATTEND Nurse Practitioner Acute Care
DX: R07.89 Other chest pain (principal); I25.10 Atherosclerotic heart disease of native coronary artery without angina pectoris; J45.909 Unspecified asthma, uncomplicated; J44.9 Chronic obstructive pulmonary disease, unspecified; I10 Essential (primary) hypertension; I48.91 Unspecified atrial fibrillation; E78.5 Hyperlipidemia, unspecified; E03.9 Hypothyroidism, unspecified; G40.802 Other epilepsy, not intractable, without status epilepticus; I44.7 Left bundle-branch block, unspecified; M81.8 Other osteoporosis without current pathological fracture; Z87.891 Personal history of nicotine dependence; Z79.01 Long term (current) use of anticoagulants; Z86.711 Personal history of pulmonary embolism
CPT/HCPCS: 36415; 71010-TC; 71275-TC; 78452-TC; 80048; 80053; 80061; 82550; 83036; 83721; 83880; 84443; 84484; 85025; 85610; 93005; 93010; 93017; 93306-TC; 94640; 99284-25; A9502; G0378; J1245; J1644

== ENCOUNTER 2016-12-26 23:14 | Emergency (ER) | payer OTHER ==
[2016-12-26 23:57] VITALS: BP 150/64; PULSE 74; TEMP 97.9; BMI 32.4
[2016-12-27] MEDS ORDERED: PANTOPRAZOLE SODIUM 40 MG in SODIUM CHLORIDE 100 ML IVPB ONE (01:09)
--- NOTE | 2016-12-27 01:09 | PDOC ---
History of Present Illness - General History Source: Patient Exam Limitations: No Limitations - History of Present Illness Initial Comments: 12/27/16 02:11 The patient is a 71 year old female with significant past medical history of epilepsy (on topiramate), afib (on coumadin), CAD, asthma/COPD, PE (2012), hypertension, hyperlipidemia, breast mass (on arimidex), and hypothyroidism who presents to the ED BIBA home for chest pain that began less than 24 hours ago. Patient describes her chest pain as a pressure-like sensation that is localized in the epigastric/midsternal region radiating towards the back with no exacerbating or alleviating factors. Reports associated SOB. States she did not take anything for her pain. Denies lightheadedness, diaphoresis, palpitations, jaw pain, shoulder pain, arm pain, leg swelling, nausea, or vomiting. No recent travels or sick contacts. The patient denies fever, chills, cough, and diarrhea. Allergies: NKDA Social History: former smoker - quit in 1988. No alcohol or drug use reported. Family History: Mother stomach cancer, sister breast cancer, brother CAD, and father emphysema. Past Surgical History: Lung biopsy, thoracotomy PCP: Dr. Laly Barrow Cardio: Dr. Grey Julien Physician Office Nurse: Dr. Jefry Alcaraz <Tawnya Ramirez - Last Filed: 12/27/16 02:12> - General History Source: Patient <Nino Corado - Last Filed: 12/27/16 05:45> - General Chief Complaint: Chest Pain Stated Complaint: CHEST PAIN Time Seen by Provider: 12/27/16 00:37 Past History <Tawnya Ramirez - Last Filed: 12/27/16 02:12> - Past Medical History Anemia: No Asthma: Yes Cancer: No Cardiac Disorders: Yes (CAD, "irregular heart beat") CVA: No COPD: (SOB) CHF: No Dementia: No Diabetes: No GI Disorders: Yes (RECTAL BLEEDING) Disorders: No HTN: Yes Hypercholesterolemia: Yes Liver Disease: No Suicide Attempt (Hx): No Seizures: Yes (EPILEPSY) Thyroid Disease: Yes (HYPO) - Surgical History Abdominal Surgery: No Appendectomy: No Cardiac Surgery: No Cholecystectomy: No Gastric Stapling: No GI Surgery: No Lung Surgery: Yes (BX) Neurologic Surgery: No Orthopedic Surgery: No - Immunization History Td Vaccination: Yes TDAP Vaccination: Yes Immunization Up to Date: Yes - Psycho/Social/Smoking Cessation Hx Anxiety: No Suicidal Ideation: No Smoking Status: Yes Smoking History: Never smoked Have you smoked in the past 12 months: No Number of Cigarettes Smoked Daily: 0 If you are a former smoker, when did you quit?: 1988 Information on smoking cessation initiated: No 'Breaking Loose' booklet given: 08/18/16 Hx Alcohol Use: No Drug/Substance Use Hx: No Substance Use Type: None Hx Substance Use Treatment: No <Nino Corado - Last Filed: 12/27/16 05:45> - Past Medical History Allergies/Adverse Reactions: Allergies Allergy/AdvReac Type Severity Reaction Status Date / Time No Known Drug Allergies Allergy Verified 12/26/16 23:55 Home Medications: Ambulatory Orders Aspirin [ASA -] 81 mg PO DAILY 03/10/12 Atorvastatin Ca [Lipitor] 40 mg PO DAILY 03/10/12 Calcium Carbonate/Vitamin D3 [Calcium 600-Vit D3 200 Tablet] 1 each PO BID 03/10 Topiramate 25 mg PO BID 03/10/12 Warfarin Sodium 3 mg PO ASDIR 09/22/13 Furosemide [Lasix -] 40 mg PO DAILY 06/18/15 Levothyroxine [Synthroid -] 50 mcg PO DAILY 06/18/15 Multivit-Min/FA/Lycopen/Lutein [Centrum Silver Tablet] 1 each PO DAILY 08/31/15 Albuterol Sulfate Inhaler - [Ventolin HFA Inhaler -] 2 inh PO PRN PRN 09/01/15 Anastrozole [Arimidex -] 1 mg PO DAILY 08/18/16 Metoprolol Tartrate 25 mg PO BID 08/18/16 Raloxifene HCl 60 mg PO DAILY 08/18/16 Review of Systems - Review of Systems Able to Perform ROS?: Yes Comments:: 12/27/16 02:12 CONSTITUTIONAL: Absent: fever, chills, diaphoresis, generalized weakness, malaise, loss of appetite HEENT: Absent: rhinorrhea, nasal congestion, throat pain, throat swelling, difficulty swallowing, ear pain, eye pain, visual Changes CARDIOVASCULAR: +chest pain (pain in the epigastric/midsternal region radiating towards the back ) Absent: syncope, palpitations, irregular heart rate, lightheadedness, peripheral edema RESPIRATORY: +SOB Absent: cough, dyspnea with exertion, orthopnea, wheezing GASTROINTESTINAL: Absent: abdominal distension, nausea, vomiting, diarrhea, constipation GENITOURINARY: Absent: dysuria, frequency, urgency, hesitancy, hematuria, flank pain MUSCULOSKELETAL: Absent: arthralgia, joint swelling SKIN: Absent: rash, itching, pallor NEUROLOGIC: Absent: headache, focal weakness or paresthesias, dizziness, seizure, mental status changes, bladder or bowel incontinence <MargaAlen da silvaTawnya - Last Filed: 12/27/16 02:12> *Physical Exam - Vital Signs Last Vital Signs Temp Pulse Resp BP Pulse Ox 97.9 F 74 18 150/64 97 12/26/16 23:55 12/26/16 23:55 12/26/16 23:55 12/26/16 23:55 12/26/16 23:55 - Physical Exam Comments: 12/27/16 02:12 GENERAL: Morbidly obese. Well developed, well nourished. Awake and alert. No acute distress. HEENT: Normocephalic, atraumatic. PERRLA, EOMI. No conjunctival pallor. Sclera are non- icteric. Moist mucous membranes. Oropharynx is clear. NECK: Supple. Full ROM. No JVD. Carotid pulses 2+ and symmetric, without bruits. CARDIOVASCULAR: Regular rate and rhythm. No murmurs, rubs, or gallops. Distal pulses are 2+ and symmetric. PULMONARY: No evidence of respiratory distress. Lungs clear to auscultation bilaterally. No wheezing, rales or rhonchi. ABDOMINAL: Soft. Epigastric tenderness. Non-distended. No rebound or guarding. Normoactive bowel sounds. MUSCULOSKELETAL Normal range of motion at all joints. No bony deformities or tenderness. EXTREMITIES: No cyanosis. No clubbing. No edema. No calf tenderness. SKIN: Warm and dry. Normal capillary refill. No rashes. No jaundice. NEUROLOGICAL: Alert, awake, appropriate. Cranial nerves 2-12 intact. Moving all extremities. No gross neurological deficits. <GhassanyanetMarcus da silvata - Last Filed: 12/27/16 02:12> - Vital Signs Last Vital Signs Temp Pulse Resp BP Pulse Ox 97.9 F 74 18 150/64 97 12/26/16 23:55 12/26/16 23:55 12/26/16 23:55 12/26/16 23:55 12/26/16 23:55 <Nino Corado - Last Filed: 12/27/16 05:45> Heart Score/ECG Review - ECG Impressions Comment:: 12/27/16 02:12 Sinus rhythm with occasional PVCs and PACs @83bpm LBBB Abnormal ECG <Tawnya Ramirez - Last Filed: 12/27/16 02:12> ED Treatment Course - LABORATORY CBC & Chemistry Diagram: 12/27/16 02:08 12/27/16 02:08 <Nino Corado - Last Filed: 12/27/16 05:45> Medical Decision Making - Medical Decision Making 12/27/16 05:45 Dr. Corado: The scribe's documentation has been prepared under my direction and personally reviewed by me in its entirery. I confirm that the note above accurately reflects all work, treatment, procedures, and medical decision making performed by me. <Nino Corado - Last Filed: 12/27/16 05:45> *DC/Admit/Observation/Transfer - Attestations Scribe Attestion: 12/27/16 02:12 Documentation prepared by Tawnya Ramirez, acting as manager medical for Nino Corado MD/. <Tawnya Ramirez - Last Filed: 12/27/16 02:12> - Discharge Dispostion Admit: No <Nino Corado - Last Filed: 12/27/16 05:45> Diagnosis at time of Disposition: Chest pain Qualifiers: Chest pain type: unspecified Qualified Code(s): R07.9 - Chest pain, unspecified - Discharge Dispostion Disposition: HOME Condition at time of disposition: Stable - Referrals Referrals: Laly Lewis MD [Primary Care Provider] - - Patient Instructions Printed Discharge Instructions: DI for Chest Pain
[2016-12-27 02:17] LABS: BASOPHIL 0.8 % (0-2.0); EOSINOPHIL 1.3 % (0-4.5); MCH 28.8 pg (25.7-33.7); MCHC 32.4 g/dl (32.0-36.0); MEAN CELL VOLUME 88.6 fl (80-96); MEAN PLT VOLUME 7.8 fl (7.5-11.1); NEUTROPHILS 71.2 % (42.8-82.8); PLATELET COUNT 270 K/MM3 (134-434); WHITE BLOOD COUNT 9.8 K/mm3 (4.0-10.0)
[2016-12-27 02:37] LABS: INR 2.24 (0.82-1.09); PROTHROMBIN TIME (PATIENT) 25.1 SEC (9.98-11.88)
[2016-12-27 02:38] LABS: ALBUMIN 2.9 g/dl (3.4-5.0); ANION GAP 12 (8-16); BILIRUBIN,TOTAL 0.1 mg/dL (0.2-1.0); CALCIUM 8.8 mg/dL (8.5-10.1); CO2 23 mmol/L (21-32); GLUCOSE,RANDOM 131 mg/dL (74-106); MAGNESIUM 2.3 mg/dL (1.8-2.4); SGOT/AST 15 U/L (15-37); SGPT/ALT 19 U/L (12-78); TOT PROT 6.4 g/dl (6.4-8.2)
[2016-12-27 02:41] LABS: ALK PHOS 79 U/L (45-117); TROPONIN I < 0.02 ng/ml (0.00-0.05)
[2016-12-27] MEDS ORDERED: PANTOPRAZOLE SODIUM 100 ML IVPB ONE (03:41)
[2016-12-27 05:38] LABS: TROPONIN I < 0.02 ng/ml (0.00-0.05)
--- NOTE | 2016-12-28 16:33 | EKG ---
Test Reason : Blood Pressure : / mmHG Vent. Rate : 067 BPM Atrial Rate : 067 BPM P-R Int : 180 ms QRS Dur : 142 ms QT Int : 432 ms P-R-T Axes : 057 -02 043 degrees QTc Int : 456 ms NORMAL SINUS RHYTHM LEFT BUNDLE BRANCH BLOCK ABNORMAL ECG WHEN COMPARED WITH ECG OF 18-AUG-2016 04:12, NONSPECIFIC T WAVE ABNORMALITY NO LONGER EVIDENT IN LATERAL LEADS Confirmed by CARRILLO MALIN, JOAO ([id number]) on 12/28/2016 4:33:10 PM Referred By: Confirmed By:JOAO VIZCAINO MD
--- NOTE | 2016-12-28 16:34 | EKG ---
Test Reason : Blood Pressure : / mmHG Vent. Rate : 083 BPM Atrial Rate : 083 BPM P-R Int : 154 ms QRS Dur : 136 ms QT Int : 386 ms P-R-T Axes : 089 -20 099 degrees QTc Int : 453 ms POOR DATA QUALITY, INTERPRETATION MAY BE ADVERSELY AFFECTED SINUS RHYTHM WITH OCCASIONAL PREMATURE VENTRICULAR COMPLEXES AND PREMATURE ATRIAL COMPLEXES LEFT BUNDLE BRANCH BLOCK ABNORMAL ECG WHEN COMPARED WITH ECG OF 18-AUG-2016 04:12, PREMATURE VENTRICULAR COMPLEXES ARE NOW PRESENT PREMATURE ATRIAL COMPLEXES ARE NOW PRESENT INVERTED T WAVES HAVE REPLACED NONSPECIFIC T WAVE ABNORMALITY IN LATERAL LEADS Confirmed by JOAO VIZCAINO MD ([id number]) on 12/28/2016 4:34:24 PM Referred By: Confirmed By:JOAO VIZCAINO MD
== END 2016-12-27 06:45 | disposition home or self-care (01) ==
LOC: JER 23:14
PROC: 3E033GC Introduction of Other Therapeutic Substance into Peripheral Vein, Percutaneous Approach (ICD-10-PCS; principal; 2016-12-26)
DX: R07.89 Other chest pain (principal); I25.10 Atherosclerotic heart disease of native coronary artery without angina pectoris; I10 Essential (primary) hypertension; I48.91 Unspecified atrial fibrillation; Z79.01 Long term (current) use of anticoagulants; G40.909 Epilepsy, unspecified, not intractable, without status epilepticus; J45.909 Unspecified asthma, uncomplicated; J44.9 Chronic obstructive pulmonary disease, unspecified; E78.5 Hyperlipidemia, unspecified; E03.9 Hypothyroidism, unspecified
CPT/HCPCS: 36415; 71010-TC; 80053; 82550; 83690; 83735; 83880; 84484; 85025; 85610; 93005; 93010; 99283-25

== ENCOUNTER 2017-08-05 22:33 | Observation (INO) | payer OTHER ==
[2017-08-05] MEDS ORDERED: ACETAMINOPHEN 325 MG TABLET (FP) PO ONE (23:08)
--- NOTE | 2017-08-05 23:15 | PDOC ---
History of Present Illness <Naima Lange - Last Filed: 08/06/17 05:22> - General History Source: Patient Exam Limitations: No Limitations - History of Present Illness Initial Comments: 08/05/17 23:11 Patient is a 72-year-old female with history of CAD, A-Fib on coumadin, asthma/ COPD, E, HTN, HLD, breast mass, hypothyroid, lung biopsy, thoracotomy complaining of cough 1 week, shortness of breath, and chest pain since 8 PM. States the chest pain is sharp and dull left distal sternal border which is painful to the touch and with movement. States she has had a cough for the past week. Took no meds for the pain, no alleviating factors. Denies fever, chills, nausea, vomiting. PMD: Dr. Altamirano PMHX: as above PSCHX: ALL: NKDA GENERAL/CONSTITUTIONAL: [No fever or chills. No weakness. No weight change.] HEAD, EYES, EARS, NOSE AND THROAT: [No change in vision. No ear pain or discharge. No sore throat.] CARDIOVASCULAR: [No chest pain or shortness of breath.] RESPIRATORY: [No cough, wheezing, or hemoptysis.] GASTROINTESTINAL: [No nausea, vomiting, diarrhea or constipation. No rectal bleeding.] GENITOURINARY: [No dysuria, frequency, or change in urination.] MUSCULOSKELETAL: [No joint or muscle swelling or pain. No neck or back pain.] SKIN AND BREASTS: [No rash or easy bruising.] NEUROLOGIC: [No headache, vertigo, loss of consciousness, or loss of sensation.] PSYCHIATRIC: [No depression or anxiety.] ENDOCRINE: [No increased thirst. No abnormal weight change.] HEMATOLOGIC/LYMPHATIC: [No anemia, easy bleeding, (+) history of blood clots.] ALLERGIC/IMMUNOLOGIC: [No hives or skin allergy. No latex allergy.] GENERAL: [The patient is awake, alert, and fully oriented, in no acute distress. ] HEAD: [Normal with no signs of trauma.] EYES: [Pupils equal, round and reactive to light, extraocular movements intact, sclera anicteric, conjunctiva clear.] ENT: [Ears normal, nares patent, oropharynx clear without exudates. Moist mucous membranes.] NECK: [Normal range of motion, supple without lymphadenopathy, JVD, or masses.] LUNGS: [Breath sounds equal, clear to auscultation bilaterally. No wheezes, and no crackles, (+) tenderness left distal sternal chest wall] HEART: [Regular rate and rhythm, normal S1 and S2 without murmur, rub.] ABDOMEN: [Soft, nontender, normoactive bowel sounds. No guarding, no rebound. No masses.] EXTREMITIES: [Normal range of motion, no edema. No clubbing or cyanosis. No cords, erythema, or tenderness.] NEUROLOGICAL: [Cranial nerves II through XII grossly intact. Normal speech, normal gait.] PSYCH: [Normal mood, normal affect.] SKIN: [Warm, Dry, normal turgor, no rashes or lesions noted.] <Isaura Dumont - Last Filed: 08/06/17 08:09> <Margret Salcedo - Last Filed: 08/06/17 08:58> - General Chief Complaint: Congestive Heart Failure Stated Complaint: S.O.B Time Seen by Provider: 08/05/17 23:05 Past History <Naima Lange - Last Filed: 08/06/17 05:22> - Past Medical History Anemia: No Asthma: Yes Cancer: No Cardiac Disorders: Yes (CAD, "irregular heart beat") CVA: No COPD: (SOB) CHF: No Dementia: No Diabetes: No GI Disorders: Yes (RECTAL BLEEDING) Disorders: No HTN: Yes Hypercholesterolemia: Yes Liver Disease: No Seizures: Yes (EPILEPSY) Thyroid Disease: Yes (HYPO) - Surgical History Abdominal Surgery: No Appendectomy: No Cardiac Surgery: No Cholecystectomy: No Gastric Stapling: No GI Surgery: No Lung Surgery: Yes (BX) Neurologic Surgery: No Orthopedic Surgery: No - Immunization History Td Vaccination: Yes TDAP Vaccination: Yes Immunization Up to Date: Yes - Suicide/Smoking/Psychosocial Hx Smoking Status: Yes Smoking History: Former smoker Have you smoked in the past 12 months: No Number of Cigarettes Smoked Daily: 0 If you are a former smoker, when did you quit?: 1988 Information on smoking cessation initiated: No 'Breaking Loose' booklet given: 08/18/16 Hx Alcohol Use: No Drug/Substance Use Hx: No Substance Use Type: None Hx Substance Use Treatment: No <Isaura Dumont - Last Filed: 08/06/17 08:09> <MatiasMargret - Last Filed: 08/06/17 08:58> - Past Medical History Allergies/Adverse Reactions: Allergies Allergy/AdvReac Type Severity Reaction Status Date / Time No Known Drug Allergies Allergy Verified 08/05/17 22:53 Home Medications: Ambulatory Orders Aspirin [ASA -] 81 mg PO DAILY 03/10/12 Atorvastatin Ca [Lipitor] 40 mg PO DAILY 03/10/12 Calcium Carbonate/Vitamin D3 [Calcium 600-Vit D3 200 Tablet] 1 each PO BID 03/10 Topiramate 25 mg PO BID 03/10/12 Warfarin Sodium 3 mg PO ASDIR 09/22/13 Furosemide [Lasix -] 40 mg PO DAILY 06/18/15 Levothyroxine [Synthroid -] 50 mcg PO DAILY 06/18/15 Multivit-Min/FA/Lycopen/Lutein [Centrum Silver Tablet] 1 each PO DAILY 08/31/15 Albuterol Sulfate Inhaler - [Ventolin HFA Inhaler -] 2 inh PO PRN PRN 09/01/15 Anastrozole [Arimidex -] 1 mg PO DAILY 08/18/16 Metoprolol Tartrate 25 mg PO BID 08/18/16 Raloxifene HCl 60 mg PO DAILY 08/18/16 Respiratory Specific PMHX - Complaint Specific PMHX Angina: No Bronchitis: No Pneumonia: No Pulmonary Embolus: Yes TB (Tuberculosis): No <Isaura Dumont - Last Filed: 08/06/17 08:09> *Physical Exam - Vital Signs Last Vital Signs Temp Pulse Resp BP Pulse Ox 98 F 100 H 22 143/73 99 08/05/17 22:48 08/05/17 22:48 08/05/17 22:48 08/05/17 22:48 08/05/17 22:48 <Naima Lange - Last Filed: 08/06/17 05:22> - Vital Signs Last Vital Signs Temp Pulse Resp BP Pulse Ox 98 F 100 H 22 143/73 99 08/05/17 22:48 08/05/17 22:48 08/05/17 22:48 08/05/17 22:48 08/05/17 22:48 <Isaura Dumont - Last Filed: 08/06/17 08:09> - Vital Signs Last Vital Signs Temp Pulse Resp BP Pulse Ox 98 F 100 H 22 143/73 98 08/05/17 22:48 08/05/17 22:48 08/05/17 22:48 08/05/17 22:48 08/06/17 08:01 <Margret Salcedo - Last Filed: 08/06/17 08:58> ED Treatment Course - LABORATORY CBC & Chemistry Diagram: 08/05/17 23:45 08/05/17 23:45 - ADDITIONAL ORDERS Additional order review: Laboratory Results 08/06/17 08/06/17 08/05/17 04:15 01:40 23:54 PT with INR INR Sodium Potassium Chloride Carbon Dioxide Anion Gap BUN Creatinine Creat Clearance w eGFR Random Glucose Calcium Total Bilirubin AST ALT Alkaline Phosphatase Creatine Kinase Troponin I < 0.02 B-Natriuretic Peptide 313.11 H Total Protein Albumin Urine Color Ltyellow Urine Appearance Turbid Urine pH 8.0 Ur Specific [place] 1.009 Urine Protein Negative Urine Glucose (UA) Negative Urine Ketones Negative Urine Blood 1+ H Urine Nitrite Negative Urine Bilirubin Negative Urine Urobilinogen Negative Ur Leukocyte Esterase 2+ H Urine WBC (Auto) 42 Urine RBC (Auto) 5 Ur Epithelial Cells Rare Urine Yeast Few 08/05/17 08/05/17 23:45 23:45 PT with INR 24.80 H INR 2.19 H D Sodium 141 Potassium 3.4 L Chloride 105 Carbon Dioxide 27 Anion Gap 9 BUN 15 Creatinine 1.2 H Creat Clearance w eGFR 44.16 Random Glucose 129 H Calcium 9.3 Total Bilirubin 0.2 D AST 16 ALT 18 D Alkaline Phosphatase 90 Creatine Kinase 50 Troponin I < 0.02 B-Natriuretic Peptide Total Protein 6.9 Albumin 2.8 L Urine Color Urine Appearance Urine pH Ur Specific [place] Urine Protein Urine Glucose (UA) Urine Ketones Urine Blood Urine Nitrite Urine Bilirubin Urine Urobilinogen Ur Leukocyte Esterase Urine WBC (Auto) Urine RBC (Auto) Ur Epithelial Cells Urine Yeast 08/05/17 23:45 RBC 3.84 MCV 90.4 MCHC 32.7 RDW 15.4 MPV 7.5 Neutrophils % 76.0 Lymphocytes % 18.1 D Monocytes % 4.5 Eosinophils % 0.7 Basophils % 0.7 - Medications Given in the ED: ED Medications Discontinued Medications Generic Name Dose Route Start Last Admin Trade Name Freq PRN Reason Stop Dose Admin Acetaminophen 650 mg 08/05/17 23:08 08/06/17 01:32 Tylenol - PO 08/05/17 23:09 650 mg ONCE ONE Administration <Naima Lange - Last Filed: 08/06/17 05:22> - LABORATORY CBC & Chemistry Diagram: 08/05/17 23:45 08/05/17 23:45 - RADIOLOGY Radiology Studies Ordered: Category Date Time Status CHEST PA & LAT [RAD] Stat Radiology 08/05/17 23:07 Ordered <Ryan Dumont - Last Filed: 08/06/17 08:09> - LABORATORY CBC & Chemistry Diagram: 08/05/17 23:45 08/05/17 23:45 - ADDITIONAL ORDERS Additional order review: Laboratory Results 08/06/17 08/06/17 08/05/17 04:15 01:40 23:54 PT with INR INR Sodium Potassium Chloride Carbon Dioxide Anion Gap BUN Creatinine Creat Clearance w eGFR Random Glucose Calcium Total Bilirubin AST ALT Alkaline Phosphatase Creatine Kinase Troponin I < 0.02 B-Natriuretic Peptide 313.11 H Total Protein Albumin Urine Color Ltyellow Urine Appearance Turbid Urine pH 8.0 Ur Specific [place] 1.009 Urine Protein Negative Urine Glucose (UA) Negative Urine Ketones Negative Urine Blood 1+ H Urine Nitrite Negative Urine Bilirubin Negative Urine Urobilinogen Negative Ur Leukocyte Esterase 2+ H Urine WBC (Auto) 42 Urine RBC (Auto) 5 Ur Epithelial Cells Rare Urine Yeast Few 08/05/17 08/05/17 23:45 23:45 PT with INR 24.80 H INR 2.19 H D Sodium 141 Potassium 3.4 L Chloride 105 Carbon Dioxide 27 Anion Gap 9 BUN 15 Creatinine 1.2 H Creat Clearance w eGFR 44.16 Random Glucose 129 H Calcium 9.3 Total Bilirubin 0.2 D AST 16 ALT 18 D Alkaline Phosphatase 90 Creatine Kinase 50 Troponin I < 0.02 B-Natriuretic Peptide Total Protein 6.9 Albumin 2.8 L Urine Color Urine Appearance Urine pH Ur Specific [place] Urine Protein Urine Glucose (UA) Urine Ketones Urine Blood Urine Nitrite Urine Bilirubin Urine Urobilinogen Ur Leukocyte Esterase Urine WBC (Auto) Urine RBC (Auto) Ur Epithelial Cells Urine Yeast 08/05/17 23:45 RBC 3.84 MCV 90.4 MCHC 32.7 RDW 15.4 MPV 7.5 Neutrophils % 76.0 Lymphocytes % 18.1 D Monocytes % 4.5 Eosinophils % 0.7 Basophils % 0.7 - Medications Given in the ED: ED Medications Discontinued Medications Generic Name Dose Route Start Last Admin Trade Name [place] PRN Reason Stop Dose Admin Acetaminophen 650 mg 08/05/17 23:08 08/06/17 01:32 Tylenol - PO 08/05/17 23:09 650 mg ONCE ONE Administration Sodium Chloride 500 ml 08/06/17 08:07 08/06/17 08:26 Normal Saline - IV 08/06/17 08:08 500 ml ONCE ONE Administration <Margret Salcedo - Last Filed: 08/06/17 08:58> Medical Decision Making - Medical Decision Making 08/06/17 05:19 08/06/17 05:22 <Naima Lange - Last Filed: 08/06/17 05:22> - Medical Decision Making 08/06/17 01:17 Patient is a 72-year-old female with history of CAD, A-Fib on coumadin, asthma/ COPD, PE, HTN, HLD, breast mass, hypothyroid, lung biopsy, thoracotomy complaining of cough 1 week, shortness of breath, and chest pain since 8 PM. This is reproducible chest pain however patient is not without risk factors. We will get labs including troponin, EKG, chest x-ray, Tylenol 650 mg for pain. Reassess. Patient states pain is improved with the Tylenol. Labs noted below, PT INR, most likely not a PE. Laboratory Tests 08/05/17 08/05/17 08/05/17 23:45 23:45 23:45 WBC 12.3 H Hgb 11.3 Hct 34.7 Plt Count 425 D PT with INR 24.80 H INR 2.19 H D Sodium 141 Potassium 3.4 L Chloride 105 Carbon Dioxide 27 BUN 15 Creatinine 1.2 H Random Glucose 129 H Troponin I < 0.02 B-Natriuretic Peptide 08/05/17 23:54 WBC Hgb Hct Plt Count PT with INR INR Sodium Potassium Chloride Carbon Dioxide BUN Creatinine Random Glucose Troponin I B-Natriuretic Peptide 313.11 H EKG sinus rhythm with first-degree AV block, left bundle branch block, left axis , unchanged from prior dated 12/27/16. Troponin repeated 2 and is negative Chest x-ray reviewed noted a large process on the left lower lung. Will send for a CT of the chest. 08/06/17 07:25 Called by the radiologist confirming mass on the left lung. We will likely have to be admitted to the hospitalist. will give IVF for the dye load of CT scan. <Isaura Dumont - Last Filed: 08/06/17 08:09> - Medical Decision Making 08/06/17 08:57 case discussed with Kylie RODAS for hospitalist and agrees to OBS pateint. <Margret Salcedo - Last Filed: 08/06/17 08:58> *DC/Admit/Observation/Transfer <Naima Lange - Last Filed: 08/06/17 05:22> <Isaura Dumont - Last Filed: 08/06/17 08:09> - Discharge Dispostion Admit: Yes <Margret Salcedo - Last Filed: 08/06/17 08:58> Diagnosis at time of Disposition: Mass of lower lobe of left lung Chest pain Qualifiers: Chest pain type: other chest pain Qualified Code(s): R07.89 - Other chest pain - Discharge Dispostion Condition at time of disposition: Stable - Referrals Referrals: Laly Lewis MD [Primary Care Provider] -
[2017-08-05 23:59] LABS: BASO % 0.7 % (0-2.0); EOS % 0.7 % (0-4.5); HEMATOCRIT 34.7 % (32.4-45.2); HEMOGLOBIN 11.3 GM/dL (10.7-15.3); LYMPH % 18.1 % (8-40); MCH 29.6 pg (25.7-33.7); MCHC 32.7 g/dl (32.0-36.0); MEAN CELL VOLUME 90.4 fl (80-96); MEAN PLT VOLUME 7.5 fl (7.5-11.1); MONO % 4.5 % (3.8-10.2); PLATELET COUNT 425 K/MM3 (134-434); RBC 3.84 M/mm3 (3.60-5.2); RDW 15.4 % (11.6-15.6); WHITE BLOOD COUNT 12.3 K/mm3 (4.0-10.0)
[2017-08-06 00:24] LABS: INR 2.19 (0.82-1.09); PROTHROMBIN TIME (PATIENT) 24.8 SEC (9.98-11.88)
[2017-08-06 00:31] LABS: ALBUMIN 2.8 g/dl (3.4-5.0); ANION GAP 9 (8-16); BLOOD UREA NITROGEN 15 mg/dL (7-18); CALCIUM 9.3 mg/dL (8.5-10.1); CHLORIDE 105 mmol/L (98-107); CO2 27 mmol/L (21-32); CREATININE 1.2 mg/dL (0.55-1.02); GLUCOSE,RANDOM 129 mg/dL (74-106); POTASSIUM 3.4 mmol/L (3.5-5.1); SGOT/AST 16 U/L (15-37); SGPT/ALT 18 U/L (12-78); SODIUM 141 mmol/L (136-145); TOT PROT 6.9 g/dl (6.4-8.2)
[2017-08-06 00:35] LABS: ALK PHOS 90 U/L (45-117); BILIRUBIN,TOTAL 0.2 mg/dL (0.2-1.0)
[2017-08-06] MEDS ORDERED: ACETAMINOPHEN 325 MG TABLET (FP) ONE (01:28)
[2017-08-06 01:53] LABS: URINE APPEARANCE TURBID; URINE BILIRUBIN NEGATIVE (NEGATIVE); URINE BLOOD 1+ (NEGATIVE); URINE COLOR LTYELLOW; URINE GLUCOSE (UA) NEGATIVE (NEGATIVE); URINE KETONE NEGATIVE (NEGATIVE); URINE NITRITE NEGATIVE (NEGATIVE); URINE PROTEIN NEGATIVE (NEGATIVE); URINE UROBILINOGEN NEGATIVE mg/dL (0.2-1.0)
[2017-08-06 02:08] LABS: URINE LEUK ESTERASE 2+ (NEGATIVE)
[2017-08-06 02:10] LABS: EPI CELLS RARE /HPF (FEW); YEAST FEW
[2017-08-06] MEDS ORDERED: SODIUM CHLORIDE 0.9% 1000 ML INFUS.BAG IV ONE (08:07)
--- NOTE | 2017-08-06 09:45 | HP ---
CHIEF COMPLAINT: Left substernal chest pain PCP: Dr. Ponce HISTORY OF PRESENT ILLNESS: This is a 72 year old female with PMHx of CAD, A.fib (on Coumadin), asthma/COPD , HTN, hyperlipidemia, breast mass (on arimidex), hypothyroidism, DVT, PE 2012, left lung mass (s/p wedge resection, currently managed by PET scans), who presented to the ED with left substernal chest pain. The patient reports the pain started yesterday evening and has improved since arriving in the ED. She reports having pain like this in the past. She also reports shortness of breath which she reports is at her baseline. The patient is also complaining of a non- productive cough that she has had for 1 week. ER course was notable for: (1) Temp 98, pulse 100, BP 143/73, resp 22, O2 99% on RA (2) WBC 12.3 (3) Cr 1.2 (4) Trop x2 negative (5) CT Chest: no definite enhancement of the left lower lobe slightly lobulated mass inseparable from postop scarring and sututres that has increased in size since prior CT on 08/18/16 Recent Travel: denies PAST MEDICAL HISTORY: as above PAST SURGICAL HISTORY: as above Social History: Smoking: Former smoker, quit 1988 Alcohol: Denies Drugs: Denies Family History: Allergies No Known Drug Allergies Allergy (Verified 08/05/17 22:53) HOME MEDICATIONS: Home Medications Medication Instructions Recorded Aspirin [ASA -] 81 mg PO DAILY 03/10/12 Atorvastatin Ca [Lipitor] 40 mg PO DAILY 03/10/12 Calcium Carbonate/Vitamin D3 1 each PO BID 03/10/12 [Calcium 600-Vit D3 200 Tablet] Topiramate 25 mg PO BID 03/10/12 Warfarin Sodium 3 mg PO ASDIR 09/22/13 Furosemide [Lasix -] 40 mg PO DAILY 06/18/15 Levothyroxine [Synthroid -] 50 mcg PO DAILY 06/18/15 Multivit-Min/FA/Lycopen/Lutein 1 each PO DAILY 08/31/15 [Centrum Silver Tablet] Albuterol Sulfate Inhaler - 2 inh PO PRN PRN 09/01/15 [Ventolin HFA Inhaler -] Anastrozole [Arimidex -] 1 mg PO DAILY 08/18/16 Metoprolol Tartrate 25 mg PO BID 08/18/16 Raloxifene HCl 60 mg PO DAILY 08/18/16 REVIEW OF SYSTEMS CONSTITUTIONAL: Absent: fever, chills, diaphoresis, generalized weakness, malaise, loss of appetite, weight change HEENT: Absent: rhinorrhea, nasal congestion, throat pain, throat swelling, difficulty swallowing, mouth swelling, ear pain, eye pain, visual changes CARDIOVASCULAR: Left substernal chest pain that began last night and has improved since arriving in the ED. Absent: syncope, palpitations, irregular heart rate, lightheadedness, peripheral edema RESPIRATORY: Non-productive cough x1 week. + shortness of breath which is at her baseline. Absent: dyspnea with exertion, orthopnea, wheezing, stridor, hemoptysis GASTROINTESTINAL:Absent: abdominal pain, abdominal distension, nausea, vomiting , diarrhea, constipation, melena, hematochezia GENITOURINARY: Absent: dysuria, frequency, urgency, hesitancy, hematuria, flank pain, genital pain MUSCULOSKELETAL: Absent: myalgia, arthralgia, joint swelling, back pain, neck pain SKIN: Absent: rash, itching, pallor HEMATOLOGIC/IMMUNOLOGIC: Absent: easy bleeding, easy bruising, lymphadenopathy, frequent infections ENDOCRINE:Absent: unexplained weight gain, unexplained weight loss, heat intolerance, cold intolerance NEUROLOGIC: Absent: headache, focal weakness or paresthesias, dizziness, unsteady gait, seizure, mental status changes, bladder or bowel incontinence PSYCHIATRIC: Hx of anxiety. Absent: depression, suicidal or homicidal ideation, hallucinations. PHYSICAL EXAMINATION Vital Signs - 24 hr 08/05/17 08/06/17 08/06/17 22:48 08:01 09:00 Temperature 98 F Pulse Rate 100 H Pulse Rate [ 68 Radial] Respiratory 22 24 Rate Blood Pressure 143/73 Blood Pressure 141/67 [Left Arm] O2 Sat by Pulse 99 98 99 Oximetry (%) GENERAL: Awake, alert, and fully oriented, in no acute distress. HEAD: Normal with no signs of trauma. EYES: Pupils equal, round and reactive to light, extraocular movements intact, sclera anicteric, conjunctiva clear. No lid lag. EARS, NOSE, THROAT: Ears normal, nares patent, oropharynx clear without exudates. Moist mucous membranes. NECK: Normal range of motion, supple without lymphadenopathy, JVD, or masses. LUNGS: Breath sounds equal, clear to auscultation bilaterally. No wheezes, and no crackles. No accessory muscle use. HEART: Irregularly irregular. S1 and S2 without murmur, rub or gallop. ABDOMEN: Soft, nontender, not distended, normoactive bowel sounds, no guarding, no rebound, no masses. No hepatomegaly or splenomegaly. MUSCULOSKELETAL: Normal range of motion at all joints. No bony deformities or tenderness. No CVA tenderness. UPPER EXTREMITIES: 2+ pulses, warm, well-perfused. No cyanosis. No clubbing. No peripheral edema. LOWER EXTREMITIES: 2+ pulses, warm, well-perfused. No calf tenderness. No peripheral edema. NEUROLOGICAL: Cranial nerves II-XII intact. Normal speech. Normal gait. PSYCHIATRIC: Cooperative. Good eye contact. Appropriate mood and affect. SKIN: Warm, dry, normal turgor, no rashes or lesions noted, normal capillary refill. Laboratory Results - last 24 hr 08/05/17 08/05/17 08/05/17 23:45 23:45 23:45 WBC 12.3 H RBC 3.84 Hgb 11.3 Hct 34.7 MCV 90.4 MCH 29.6 MCHC 32.7 RDW 15.4 Plt Count 425 D MPV 7.5 Neutrophils % 76.0 Lymphocytes % 18.1 D Monocytes % 4.5 Eosinophils % 0.7 Basophils % 0.7 PT with INR 24.80 H INR 2.19 H D Sodium 141 Potassium 3.4 L Chloride 105 Carbon Dioxide 27 Anion Gap 9 BUN 15 Creatinine 1.2 H Creat Clearance w eGFR 44.16 Random Glucose 129 H Calcium 9.3 Total Bilirubin 0.2 D AST 16 ALT 18 D Alkaline Phosphatase 90 Creatine Kinase 50 Troponin I < 0.02 B-Natriuretic Peptide Total Protein 6.9 Albumin 2.8 L Urine Color Urine Appearance Urine pH Ur Specific [place] Urine Protein Urine Glucose (UA) Urine Ketones Urine Blood Urine Nitrite Urine Bilirubin Urine Urobilinogen Ur Leukocyte Esterase Urine WBC (Auto) Urine RBC (Auto) Ur Epithelial Cells Urine Yeast 08/05/17 08/06/17 08/06/17 23:54 01:40 04:15 WBC RBC Hgb Hct MCV MCH MCHC RDW Plt Count MPV Neutrophils % Lymphocytes % Monocytes % Eosinophils % Basophils % PT with INR INR Sodium Potassium Chloride Carbon Dioxide Anion Gap BUN Creatinine Creat Clearance w eGFR Random Glucose Calcium Total Bilirubin AST ALT Alkaline Phosphatase Creatine Kinase Troponin I < 0.02 B-Natriuretic Peptide 313.11 H Total Protein Albumin Urine Color Ltyellow Urine Appearance Turbid Urine pH 8.0 Ur Specific [place] 1.009 Urine Protein Negative Urine Glucose (UA) Negative Urine Ketones Negative Urine Blood 1+ H Urine Nitrite Negative Urine Bilirubin Negative Urine Urobilinogen Negative Ur Leukocyte Esterase 2+ H Urine WBC (Auto) 42 Urine RBC (Auto) 5 Ur Epithelial Cells Rare Urine Yeast Few Assessment: This is a 72 year old female with PMHx of seizures (on Topamax), CAD , A.fib (on Coumadin), asthma/COPD, HTN, hyperlipidemia, breast mass (on arimidex), hypothyroidism, DVT, PE 2012, left lung mass (s/p wedge resection, currently managed by PET scans), who presented to the ED with left substernal chest pain. Plan: 1) Atypical chest pain - Ruled out for CT - F/u ECHO - F/u cardiology consult 2) Left lung mass - Discussed with Dr. Alcaraz, pt is s/p wedge resection. She follows up with Dr. Zhao as outpatient for q4 month PET scans. Last PET scan 04/2017 negative - F/u CT surgery consult 3) Shortness of breath - Possibly 2/2 lung mass. Patient reports it to be at baseline - F/u pulmonary consult 4) A.fib - Continue Coumadin 3mg weekdays, 2mg weekends - INR therapeutic 5) Seizure disorder - Continue Topamax 6) Hypothyroidism - Continue Synthroid 7) CAD - Continue ASA - Continue Lipitor - Continue Lopressor - Continue Lasix 8) F/E/N: - Sodium controlled diet - Hypokalemia: replete 9) Prophylaxis: - OOB ambulating - On Coumadin 10) Dispo: - Once condition improves CODE STATUS: FULL CODE Visit type - Emergency Visit Emergency Visit: Yes ED Registration Date: 08/06/17 Care time: The patient presented to the Emergency Department on the above date and was hospitalized for further evaluation of their emergent condition. - New Patient This patient is new to me today: Yes Date on this admission: 08/06/17 - Critical Care Critical Care patient: No
[2017-08-06] MEDS ORDERED: CEFTRIAXONE 1 GM/50 ML BAG ONE (11:25)
[2017-08-06] MEDS: CEFTRIAXONE 1 G/50 ML PREMIX 50 ML IVPB SCH (11:40)
--- NOTE | 2017-08-06 12:22 | EKG ---
Test Reason : Blood Pressure : / mmHG Vent. Rate : 083 BPM Atrial Rate : 083 BPM P-R Int : 212 ms QRS Dur : 144 ms QT Int : 398 ms P-R-T Axes : 079 -10 075 degrees QTc Int : 467 ms SINUS RHYTHM WITH 1ST DEGREE A-V BLOCK LEFT BUNDLE BRANCH BLOCK ABNORMAL ECG WHEN COMPARED WITH ECG OF 27-DEC-2016 06:03, [place] INTERVAL HAS INCREASED Confirmed by HOLLY MALIN, LINDSAY ([id number]) on 08/06/2017 12:21:58 PM Referred By: Confirmed By:LINDSAY BARRERA MD
[2017-08-06] MEDS ORDERED: POTASSIUM CHLORIDE TABS 20 MEQ TABLET.ER (FP) PO ONE ×2 (12:27→13:07)
[2017-08-06 13:46] VITALS: BMI 32.5
--- NOTE | 2017-08-06 17:31 | PN ---
Progress Note (short form) - Note Progress Note: PULMONARY CONSULTATION DICTATED 08/06/17 IMP CHEST PAIN LIKELY MUSCULOSKELETAL,? CARDIAC ENLARGING LEFT LUNG MASS ? MALIGNANT, ? INFLAMMATORY ,PREVIOUS BX AND PET SCANS NEGATIVE H/O LEFT THORACOTOMY DYSPNEA COPD AFIB H/O DVT/PE ON AC SEIZURE DISORDER ASHD HYPOTHYROID HLD PLAN INHALED BRONCHODILATORS O2 SOLUMEDROL X 24H THORACIC SURGERY F/U PFTS OUTPATIENT AC ANALGESICS DR SAAVEDRA Problem List - Problems (1) Chest pain Code(s): R07.9 - CHEST PAIN, UNSPECIFIED Qualifiers: Chest pain type: other chest pain Qualified Code(s): R07.89 - Other chest pain; R07.8 - Other chest pain (2) Mass of lower lobe of left lung Code(s): R91.8 - OTHER NONSPECIFIC ABNORMAL FINDING OF LUNG FIELD (3) Anticoagulated on Coumadin Code(s): Z51.81 - ENCOUNTER FOR THERAPEUTIC DRUG LEVEL MONITORING; Z79.01 - [facility] (CURRENT) USE OF ANTICOAGULANTS (4) COPD (chronic obstructive pulmonary disease) Code(s): J44.9 - CHRONIC OBSTRUCTIVE PULMONARY DISEASE, UNSPECIFIED (5) Dyspnea Code(s): R06.00 - DYSPNEA, UNSPECIFIED Qualifiers: Dyspnea type: shortness of breath Qualified Code(s): R06.02 - Shortness of breath (6) Dyspnea or other respiratory complaints Code(s): OVS6365 - (7) Atrial fibrillation Code(s): I48.91 - UNSPECIFIED ATRIAL FIBRILLATION Qualifiers: Atrial fibrillation type: unspecified Qualified Code(s): I48.91 - Unspecified atrial fibrillation (8) CAD (coronary artery disease) Code(s): I25.10 - ATHSCL HEART DISEASE OF [place] CORONARY ARTERY W/O ANG PCTRS (9) Hyperlipidemia Code(s): E78.5 - HYPERLIPIDEMIA, UNSPECIFIED (10) Hypertension Code(s): I10 - ESSENTIAL (PRIMARY) HYPERTENSION Qualifiers: Hypertension type: essential hypertension Qualified Code(s): I10 - Essential (primary) hypertension (11) Hypothyroidism Code(s): E03.9 - HYPOTHYROIDISM, UNSPECIFIED Qualifiers: Hypothyroidism type: unspecified Qualified Code(s): E03.9 - Hypothyroidism , unspecified (12) Seizure disorder Code(s): G40.909 - EPILEPSY, UNSP, NOT INTRACTABLE, WITHOUT STATUS EPILEPTICUS
[2017-08-06] MEDS ORDERED: ALBUTEROL SO4 2.5/IPRATROPIUM 0.5 INH SOL 3 ML VIAL.NEB. NEB PRN (17:34)
--- NOTE | 2017-08-06 17:58 | CONSULT ---
Consult - text type - Consultation Consultation Note: Patient seen and examined 72 y/o patient with remote h/o LLL wedge resection at [facility] > 10 yrs. ago -- pathology showed inflammation. Uriahin followed by CT surgery at [facility] PET avid infrahilar mass--last PET was 04/15. she was seen by CT surgery 05/15. Had prior CT guided bx which revealed scar tissue. 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 lower lobectomy Last Vital Signs Temp Pulse Resp BP Pulse Ox 97.3 F L 88 20 135/74 96 08/06/17 16:50 08/06/17 16:50 08/06/17 16:50 08/06/17 16:50 08/06/17 16:50 Cor: RSR, No murmurs, No gallops Lungs: Clear to P&A Abd: Soft, Normal bowel sounds, No organomegaly Ext:No significant edema Abnormal Lab Results 08/05/17 08/05/17 08/05/17 23:45 23:45 23:45 WBC 12.3 H PT with INR 24.80 H INR 2.19 H D Potassium 3.4 L Creatinine 1.2 H Random Glucose 129 H B-Natriuretic Peptide Albumin 2.8 L Urine Blood Ur Leukocyte Esterase 08/05/17 08/06/17 23:54 01:40 WBC PT with INR INR Potassium Creatinine Random Glucose B-Natriuretic Peptide 313.11 H Albumin Urine Blood 1+ H Ur Leukocyte Esterase 2+ H Home Medication List Medication Instructions Recorded Confirmed Type Aspirin [ASA -] 81 mg PO DAILY 03/10/12 08/06/17 History Atorvastatin Ca [Lipitor] 40 mg PO DAILY 03/10/12 08/06/17 History Calcium Carbonate/Vitamin D3 1 each PO BID 03/10/12 08/06/17 History [Calcium 600-Vit D3 200 Tablet] Topiramate 25 mg PO BID 03/10/12 08/06/17 History Warfarin Sodium 3 mg PO [id number] 09/22/13 08/06/17 History Furosemide [Lasix -] 40 mg PO DAILY 06/18/15 08/06/17 History Levothyroxine [Synthroid -] 50 mcg PO DAILY 06/18/15 08/06/17 History Multivit-Min/FA/Lycopen/Lutein 1 each PO DAILY 08/31/15 08/06/17 History [Centrum Silver Tablet] Albuterol Sulfate Inhaler - 2 inh PO PRN PRN 09/01/15 08/06/17 History [Ventolin HFA Inhaler -] Anastrozole [Arimidex -] 1 mg PO DAILY 08/18/16 08/06/17 History Metoprolol Tartrate 25 mg PO BID 08/18/16 08/06/17 History Warfarin Na [Coumadin] 2 mg PO HS 08/06/17 08/06/17 History Active Medications Generic Name Dose Route Start Last Admin Trade Name Freq PRN Reason Stop Dose Admin Albuterol/Ipratropium 1 amp 08/06/17 17:34 Duoneb - NEB Q4H PRN SHORTNESS OF BREATH Anastrozole 1 mg 08/07/17 10:00 Arimidex - PO DAILY [facility] Aspirin 81 mg 08/07/17 10:00 Asa - PO DAILY [facility] Atorvastatin Calcium 40 mg 08/06/17 22:00 Lipitor - PO HS [facility] Calcium Carbonate/Cholecalciferol 1 tab 08/06/17 22:00 Os-Bart 500+D - PO BID [facility] Furosemide 40 mg 08/07/17 10:00 Lasix - PO DAILY [facility] CEFTRIAXONE 1 G/50 ML PREMIX 50 mls @ 100 mls/hr 08/06/17 11:00 08/06/17 11: 40 Ceftriaxone 1 Gm-D5w Bag IVPB 100 mls/hr DAILY [facility] Administration Levothyroxine Sodium 50 mcg 08/07/17 07:00 Synthroid - PO AM GURVINDER Methylprednisolone Sodium Succinate 40 mg 08/06/17 21:00 Solu-Medrol - IVPUSH 08/07/17 15:01 Q6H-IV GURVINDER Metoprolol Tartrate 25 mg 08/06/17 22:00 Lopressor - PO BID [facility] Non-Formulary Medication 1 each 08/07/17 10:00 Multivit-Min/Fa/Lycopen/Lutein [Centrum Silver Tablet] PO DAILY [facility] Topiramate 25 mg 08/06/17 22:00 Topamax - PO BID [facility] Warfarin Sodium 3 mg 08/06/17 18:00 08/06/17 17:15 Coumadin - PO 3 mg DAILY@1800 GURVINDER Administration A/P 72 y/o patient with remote h/o LLL wedge resection at [facility] > 10 yrs. ago -- pathology showed inflammation. Being followed by CT surgery at [facility] PET avid infrahilar mass--last PET was 04/15. she was seen by CT surgery 05/15. Had prior CT guided bx which revealed scar tissue. Also had navigational bronchiscopy with negative yield Patient comes in with worsening cough/shortness of breath. CT chest shows increase size of mass compared to 08/15 will need repeat PET-CT and CT surgery f/u for tissue diagnosis will discuss with Dr. Hickey Being treated for bronchitis/COPD Symptomatically improved h/ounprovoked PE-INR is therapeutic
[2017-08-06] MEDS ORDERED: WARFARIN NA 3 MG TABLET PO SCH (18:00)
--- NOTE | 2017-08-06 19:53 | CONS ---
DATE OF CONSULTATION: 08/06/2017 PULMONARY CONSULTATION REFERRING PHYSICIAN: Kylie Dumont N.P. HISTORY OF PRESENT ILLNESS: The patient is a 72-year-old white female with a past medical history of left thoracotomy many years ago, apparently the biopsy at that time was negative, atrial fibrillation on Coumadin, pulmonary embolism, asthma/COPD, ASHD, hypertension, hyperlipidemia, breast mass, biopsy precancer, hypothyroidism, admitted to [facility] complaining of cough x1 week associated with shortness of breath and chest pain since last night. Patient states she started developing cough x1 week and shortness of breath, denies any fevers or chills. States that last night started developing chest pain, sharp in character, and was painful to touch, and with increased . She presented to the emergency room with the above. In the emergency room she was noted to have, she underwent a CAT scan of the chest which revealed evidence of an increasing left lung mass. Of note is the patient is being followed by Dr. Zhao at [place] and has periodic serial PET scans and has apparently biopsies which have been negative. Most recent CAT scan today reveals significant increase in size in left lung mass, mass-like density in left lower lobe as compared to prior film from 2017. Patient denies hemoptysis. Denies any fevers, weight loss, or night sweats. Patient denies any history of occupational exposure to chemicals or fumes. She has a history of smoking many years ago. She does have a history of pulmonary emboli, for which she is maintained on Coumadin. PAST MEDICAL HISTORY: Again includes COPD, history of left thoracotomy, pulmonary emboli in 2012, ASHD, atrial fibrillation, seizure disorder on , hyperlipidemia, breast mass on Arimidex, hyperlipidemia, hypertension, hypothyroidism. REVIEW OF SYSTEMS: Positive shortness of breath. Positive chest pain. Positive cough. No fever. No chills. No wheezes. No hemoptysis. No abdominal pain. No change in bowels. Positive lower extremity edema. SOCIAL HISTORY: Again, history of tobacco abuse, quit years ago. No occupational exposures. CURRENT MEDICATIONS: Include Coumadin, raloxifene, Arimidex, Topamax, Lopressor, ceftriaxone, Lipitor, Lasix, aspirin, and Synthroid. PHYSICAL EXAMINATION: General: The patient is a well-developed, well-nourished female, awake, alert, currently in no acute distress. Vital signs: She is currently afebrile. Blood pressure is 135/74, respiratory rate 20, heart rate is 88 and irregular. HEENT: Head is normocephalic, atraumatic. Neck: Supple. Heart: Irregular. Normal S1, S2. Chest: Breath sounds bilaterally. Abdomen: Soft. Bowel sounds positive. Extremities: Bilateral lower extremity edema, right greater than left. LABORATORY: WBC is 12.3, hemoglobin 11.3, hematocrit 34.7, platelet count 425,000, INR is 2.19, BUN 15, creatinine 1.2. BNP 313. Chest CT again reveals interval increase in size in previous mass density left lower lobe, besides the surgical change, suspicious for malignancy. IMPRESSION: 1. Chest pain, possibly musculoskeletal. The patient's pain is reproducible as well as increase with movement. 2. Dyspnea, possibly underlying chronic obstructive pulmonary disease. 3. Left lung mass, increase in size, cannot rule out possible malignancy, although patient apparently have been having serial PET scans as well as biopsy which have been negative. 4. History of pulmonary emboli. Deep vein thrombosis, pulmonary emboli on Coumadin. 5. Atrial fibrillation. 6. History of left thoracotomy. 7. Hypertension. PLAN: Inhaled bronchodilators. O2. Steroids. Cardiac evaluation. Oncology evaluation. Consider possible repeat biopsy. Left lung mass. Check echo. LUISA SAAVEDRA M.D. KAMINI/[id number]
[2017-08-06] MEDS: METOPROLOL TARTRATE 25 MG TABLET (FP) PO SCH (21:56)
[2017-08-06] MEDS: methylPREDNISolone NA SUCC 40 MG/1 ML VIAL IVPUSH SCH (21:56)
[2017-08-06] MEDS: CALCIUM 500MG/VIT-D 200 UNITS COMBO TABLET (FP) PO SCH (21:56)
[2017-08-06] MEDS ORDERED: ATORVASTATIN CA 40 MG TABLET (FP) PO SCH (22:00)
[2017-08-06] MEDS: TOPIRAMATE 25 MG TABLET (FP) PO SCH (22:20)
[2017-08-07] MEDS: methylPREDNISolone NA SUCC 40 MG/1 ML VIAL IVPUSH SCH ×3 (02:44→14:45)
[2017-08-07] MEDS ORDERED: LEVOTHYROXINE NA 50 MCG TABLET (FP) PO SCH (07:00)
[2017-08-07 07:29] LABS: ALBUMIN 2.6 g/dl (3.4-5.0); ANION GAP 10 (8-16); BLOOD UREA NITROGEN 15 mg/dL (7-18); CALCIUM 9.5 mg/dL (8.5-10.1); CHLORIDE 108 mmol/L (98-107); CO2 24 mmol/L (21-32); GLUCOSE,RANDOM 160 mg/dL (74-106); POTASSIUM 4.7 mmol/L (3.5-5.1); SGOT/AST 13 U/L (15-37); SGPT/ALT 17 U/L (12-78); SODIUM 142 mmol/L (136-145)
[2017-08-07 07:31] LABS: ALK PHOS 89 U/L (45-117); BILIRUBIN,TOTAL 0.4 mg/dL (0.2-1.0); TOT PROT 6.8 g/dl (6.4-8.2)
[2017-08-07 07:53] LABS: INR 2.22 (0.82-1.09); PROTHROMBIN TIME (PATIENT) 25.1 SEC (9.98-11.88)
[2017-08-07 07:56] LABS: HEMATOCRIT 36.1 % (32.4-45.2); HEMOGLOBIN 11.4 GM/dL (10.7-15.3); MCH 28.8 pg (25.7-33.7); MCHC 31.6 g/dl (32.0-36.0); MEAN CELL VOLUME 90.9 fl (80-96); MEAN PLT VOLUME 7.7 fl (7.5-11.1); PLATELET COUNT 409 K/MM3 (134-434); RBC 3.97 M/mm3 (3.60-5.2); RDW 15.5 % (11.6-15.6); WHITE BLOOD COUNT 7.6 K/mm3 (4.0-10.0)
[2017-08-07] MEDS: TOPIRAMATE 25 MG TABLET (FP) PO SCH (09:23)
[2017-08-07] MEDS: CEFTRIAXONE 1 G/50 ML PREMIX 50 ML IVPB SCH (09:24)
[2017-08-07] MEDS: METOPROLOL TARTRATE 25 MG TABLET (FP) PO SCH (09:24)
[2017-08-07] MEDS: CALCIUM 500MG/VIT-D 200 UNITS COMBO TABLET (FP) PO SCH (09:24)
[2017-08-07] MEDS ORDERED: ANASTROZOLE 1 MG TABLET PO SCH (10:00)
[2017-08-07] MEDS ORDERED: ASPIRIN 81 MG CHEWABLE TABLETS PO SCH (10:00)
[2017-08-07] MEDS ORDERED: PATIENT'S OWN MEDICATION (NON-FORMULARY) (Raloxifene Hcl [Raloxifene Hcl] 60 MG) PO SCH (10:00)
[2017-08-07] MEDS ORDERED: FUROSEMIDE 40 MG TABLET (FP) PO SCH (10:00)
[2017-08-07] MEDS ORDERED: PATIENT'S OWN MEDICATION (NON-FORMULARY) (Multivit-Min/Fa/Lycopen/Lutein [Centrum Silver T PO SCH (10:00)
--- NOTE | 2017-08-07 11:21 | PN ---
Progress Note (short form) - Note Progress Note: Subjective: The patient was seen and examined at the bedside, she reports feeling better today. She states she is still experiencing chest pain and points to her lower left chest area. She does report the chest pain has improved significantly since arriving in the ED Current Medications Generic Name Dose Route Start Last Admin Trade Name Mannyq PRN Reason Stop Dose Admin Albuterol/Ipratropium 1 amp 08/06/17 17:34 Duoneb - NEB Q4H PRN SHORTNESS OF BREATH Anastrozole 1 mg 08/07/17 10:00 08/07/17 09:24 Arimidex - PO 1 mg DAILY GURVINDER Administration Aspirin 81 mg 08/07/17 10:00 08/07/17 09:23 Asa - PO 81 mg DAILY GURVINDER Administration Atorvastatin Calcium 40 mg 08/06/17 22:00 08/06/17 21:56 Lipitor - PO 40 mg HS GURVINDER Administration Calcium Carbonate/Cholecalciferol 1 tab 08/06/17 22:00 08/07/17 09:24 Os-Bart 500+D - PO 1 tab BID GURVINDER Administration Furosemide 40 mg 08/07/17 10:00 08/07/17 09:24 Lasix - PO 40 mg DAILY GURVINDER Administration CEFTRIAXONE 1 G/50 ML PREMIX 50 mls @ 100 mls/hr 08/06/17 11:00 08/07/17 09: 24 Ceftriaxone 1 Gm-D5w Bag IVPB 100 mls/hr DAILY [facility]INDER Administration Levothyroxine Sodium 50 mcg 08/07/17 07:00 08/07/17 06:43 Synthroid - PO 50 mcg AM GURVINDER Administration Methylprednisolone Sodium Succinate 40 mg 08/06/17 21:00 08/07/17 09:23 Solu-Medrol - IVPUSH 08/07/17 15:01 40 mg Q6H-IV GURVINDER Administration Metoprolol Tartrate 25 mg 08/06/17 22:00 08/07/17 09:24 Lopressor - PO 25 mg BID GURVINDER Administration Non-Formulary Medication 1 each 08/07/17 10:00 Multivit-Min/Fa/Lycopen/Lutein [Centrum Silver Tablet] PO DAILY [facility]INDER Topiramate 25 mg 08/06/17 22:00 08/07/17 09:23 Topamax - PO 25 mg BID GURVINDER Administration Warfarin Sodium 3 mg 08/06/17 18:00 08/06/17 17:15 Coumadin - PO 3 mg DAILY@1800 GURVINDER Administration Objective: Vital Signs Period Temp Pulse Resp BP Sys/Landis Pulse Ox Last 24 Hr 97.3 F-97.9 F 71-95 16-22 121-183/62-85 96-99 CBCD WBC 7.6 K/mm3 (4.0-10.0) D 08/07/17 06:30 RBC 3.97 M/mm3 (3.60-5.2) 08/07/17 06:30 Hgb 11.4 GM/dL (10.7-15.3) 08/07/17 06:30 Hct 36.1 % (32.4-45.2) 08/07/17 06:30 MCV 90.9 fl (80-96) 08/07/17 06:30 MCHC 31.6 g/dl (32.0-36.0) L 08/07/17 06:30 RDW 15.5 % (11.6-15.6) 08/07/17 06:30 Plt Count 409 K/MM3 (134-434) 08/07/17 06:30 MPV 7.7 fl (7.5-11.1) 08/07/17 06:30 CMP Sodium 142 mmol/L (136-145) 08/07/17 06:30 Potassium 4.7 mmol/L (3.5-5.1) D 08/07/17 06:30 Chloride 108 mmol/L (98-107) H 08/07/17 06:30 Carbon Dioxide 24 mmol/L (21-32) 08/07/17 06:30 Anion Gap 10 (8-16) 08/07/17 06:30 BUN 15 mg/dL (7-18) 08/07/17 06:30 Creatinine 1.0 mg/dL (0.55-1.02) 08/07/17 06:30 Creat Clearance w eGFR 54.50 (>60) 08/07/17 06:30 Random Glucose 160 mg/dL (74-106) H D 08/07/17 06:30 Calcium 9.5 mg/dL (8.5-10.1) 08/07/17 06:30 Total Bilirubin 0.4 mg/dL (0.2-1.0) D 08/07/17 06:30 AST 13 U/L (15-37) L 08/07/17 06:30 ALT 17 U/L (12-78) 08/07/17 06:30 Alkaline Phosphatase 89 U/L (45-117) 08/07/17 06:30 Total Protein 6.8 g/dl (6.4-8.2) 08/07/17 06:30 Albumin 2.6 g/dl (3.4-5.0) L 08/07/17 06:30 CARDIAC ENZYMES Creatine Kinase 47 IU/L (26-192) 08/06/17 11:12 Troponin I < 0.02 ng/ml (0.00-0.05) 08/06/17 11:12 Microbiology 08/06/17 01:40 Urine - Urine Clean Catch Urine Culture - Final NO GROWTH OBTAINED Assessment: This is a 72 year old female with PMHx of seizures (on Topamax), CAD , A.fib (on Coumadin), asthma/COPD, HTN, hyperlipidemia, breast mass (on arimidex), hypothyroidism, DVT, PE 2012, left lung mass (s/p wedge resection, currently managed by PET scans), who presented to the ED with left substernal chest pain. Plan: 1) Atypical chest pain - Ruled out for ID - ECHO reviewed: unchanged from previous - F/u cardiology consult: Dr. Mcgowan not available. Will have patient follow- up outpatient 2) Left lung mass - Discussed with Dr. Alcaraz, pt is s/p wedge resection. She follows up with Dr. Zhao as outpatient for q4 month PET scans. Last PET scan 04/2017 negative - Discussed with Dr. Kelly (CT surgery). The patient had surgery 10.5 years ago on mass and pathology at that time was negative. She has had PET scans that have been hypometabolic with a central hilar area that is suspicious. Dr. Kelly biopsied it 1.5 years ago and it was not diagnostic. Patient has had repeated PET scans over the past 1.5 years that were essentially unchanged. Dr. Kelly has reviewed the CT scan from this admission and compared it to previous one done in April and believes the mass to be larger. He states he will follow-up with the patient this week to discuss options: scan in [address] guided needle biopsy - Appointment scheduled for 08/10/[address] Kelly 3) Shortness of breath - Possibly 2/2 lung mass. Patient reports it to be at baseline - Solumedrol x24 hours - Outpatient PFTs - Appreciate pulmonary consult 4) A.fib - Continue Coumadin 3mg weekdays, 2mg weekends - INR therapeutic 5) Seizure disorder - Continue Topamax 6) Hypothyroidism - Continue Synthroid 7) CAD - Continue ASA - Continue Lipitor - Continue Lopressor - Continue Lasix 8) F/E/N: - Sodium controlled diet - Hypokalemia: resolved 9) Prophylaxis: - OOB ambulating - On Coumadin 10) Dispo: - Once condition improves CODE STATUS: FULL CODE
--- NOTE | 2017-08-07 12:27 | PN ---
Progress Note, Physician History of Present Illness: PULMONARY ALERT,FEELING BETTER,-CP,SOB IMPROVING - Current Medication List Current Medications: Active Medications Albuterol/Ipratropium (Duoneb -) 1 amp NEB Q4H PRN PRN Reason: SHORTNESS OF BREATH Anastrozole (Arimidex -) 1 mg PO DAILY [facility] Last Admin: 08/07/17 09:24 Dose: 1 mg Aspirin (Asa -) 81 mg PO DAILY [facility] Last Admin: 08/07/17 09:23 Dose: 81 mg Atorvastatin Calcium (Lipitor -) 40 mg PO HS [facility] Last Admin: 08/06/17 21:56 Dose: 40 mg Calcium Carbonate/Cholecalciferol (Os-Bart 500+D -) 1 tab PO BID [facility] Last Admin: 08/07/17 09:24 Dose: 1 tab Furosemide (Lasix -) 40 mg PO DAILY [facility] Last Admin: 08/07/17 09:24 Dose: 40 mg CEFTRIAXONE 1 G/50 ML PREMIX (Ceftriaxone 1 Gm-D5w Bag) 50 mls @ 100 mls/hr IVPB DAILY [facility] Last Admin: 08/07/17 09:24 Dose: 100 mls/hr Levothyroxine Sodium (Synthroid -) 50 mcg PO AM [facility] Last Admin: 08/07/17 06:43 Dose: 50 mcg Methylprednisolone Sodium Succinate (Solu-Medrol -) 40 mg IVPUSH Q6H-IV [facility] Stop: 08/07/17 15:01 Last Admin: 08/07/17 09:23 Dose: 40 mg Metoprolol Tartrate (Lopressor -) 25 mg PO BID [facility] Last Admin: 08/07/17 09:24 Dose: 25 mg Non-Formulary Medication (Multivit-Min/Fa/Lycopen/Lutein [Centrum Silver Tablet] ) 1 each PO DAILY [facility] Topiramate (Topamax -) 25 mg PO BID [facility] Last Admin: 08/07/17 09:23 Dose: 25 mg Warfarin Sodium (Coumadin -) 3 mg PO DAILY@1800 [facility] Last Admin: 08/06/17 17:15 Dose: 3 mg - Objective Vital Signs: Vital Signs Temperature 97.9 F 08/07/17 10:00 Pulse Rate 73 08/07/17 10:00 Respiratory Rate 18 08/07/17 10:00 Blood Pressure 135/74 08/07/17 10:00 O2 Sat by Pulse Oximetry (%) 97 08/07/17 08:00 Constitutional: Yes: Well Nourished, Calm Eyes: Yes: WNL HENT: Yes: WNL Neck: Yes: WNL Cardiovascular: Yes: Pulse Irregular, S1, S2 Respiratory: Yes: CTA Bilaterally Gastrointestinal: Yes: Normal Bowel Sounds, Soft Extremities: Yes: WNL Edema: No Labs: CBC, BMP 08/07/17 06:30 08/07/17 06:30 INR, PTT INR 2.22 (0.82-1.09) H 08/07/17 06:30 Problem List - Problems (1) Chest pain Code(s): R07.9 - CHEST PAIN, UNSPECIFIED Qualifiers: Chest pain type: other chest pain Qualified Code(s): R07.89 - Other chest pain; R07.8 - Other chest pain (2) Mass of lower lobe of left lung Code(s): R91.8 - OTHER NONSPECIFIC ABNORMAL FINDING OF LUNG FIELD (3) Anticoagulated on Coumadin Code(s): Z51.81 - ENCOUNTER FOR THERAPEUTIC DRUG LEVEL MONITORING; Z79.01 - [employer] (CURRENT) USE OF ANTICOAGULANTS (4) COPD (chronic obstructive pulmonary disease) Code(s): J44.9 - CHRONIC OBSTRUCTIVE PULMONARY DISEASE, UNSPECIFIED (5) Dyspnea Code(s): R06.00 - DYSPNEA, UNSPECIFIED Qualifiers: Dyspnea type: shortness of breath Qualified Code(s): R06.02 - Shortness of breath (6) Dyspnea or other respiratory complaints Code(s): YKQ2144 - (7) Atrial fibrillation Code(s): I48.91 - UNSPECIFIED ATRIAL FIBRILLATION Qualifiers: Atrial fibrillation type: unspecified Qualified Code(s): I48.91 - Unspecified atrial fibrillation (8) CAD (coronary artery disease) Code(s): I25.10 - ATHSCL HEART DISEASE OF [place] CORONARY ARTERY W/O ANG PCTRS (9) Hyperlipidemia Code(s): E78.5 - HYPERLIPIDEMIA, UNSPECIFIED (10) Hypertension Code(s): I10 - ESSENTIAL (PRIMARY) HYPERTENSION Qualifiers: Hypertension type: essential hypertension Qualified Code(s): I10 - Essential (primary) hypertension (11) Hypothyroidism Code(s): E03.9 - HYPOTHYROIDISM, UNSPECIFIED Qualifiers: Hypothyroidism type: unspecified Qualified Code(s): E03.9 - Hypothyroidism , unspecified (12) Seizure disorder Code(s): G40.909 - EPILEPSY, UNSP, NOT INTRACTABLE, WITHOUT STATUS EPILEPTICUS Assessment/Plan IMP CHEST PAIN LIKELY MUSCULOSKELETAL,? CARDIAC IMPROVING ENLARGING LEFT LUNG MASS ? MALIGNANT, ? INFLAMMATORY ,PREVIOUS BX AND PET SCANS NEGATIVE H/O LEFT THORACOTOMY DYSPNEA IMPROVING COPD AFIB H/O DVT/PE ON AC SEIZURE DISORDER ASHD HYPOTHYROID HLD PLAN INHALED BRONCHODILATORS O2 THORACIC SURGERY F/U OUTPATIENT PFTS OUTPATIENT AC ANALGESICS DR SAAVEDRA Problem List - Problems (1) Chest pain Code(s): R07.9 - CHEST PAIN, UNSPECIFIED Qualifiers: Chest pain type: other chest pain Qualified Code(s): R07.89 - Other chest pain; R07.8 - Other chest pain (2) Mass of lower lobe of left lung Code(s): R91.8 - OTHER NONSPECIFIC ABNORMAL FINDING OF LUNG FIELD (3) Anticoagulated on Coumadin Code(s): Z51.81 - ENCOUNTER FOR THERAPEUTIC DRUG LEVEL MONITORING; Z79.01 - LONGTERM (CURRENT) USE OF ANTICOAGULANTS (4) COPD (chronic obstructive pulmonary disease) Code(s): J44.9 - CHRONIC OBSTRUCTIVE PULMONARY DISEASE, UNSPECIFIED (5) Dyspnea Code(s): R06.00 - DYSPNEA, UNSPECIFIED Qualifiers: Dyspnea type: shortness of breath Qualified Code(s): R06.02 - Shortness of breath (6) Dyspnea or other respiratory complaints Code(s): OJR0305 - (7) Atrial fibrillation Code(s): I48.91 - UNSPECIFIED ATRIAL FIBRILLATION Qualifiers: Atrial fibrillation type: unspecified Qualified Code(s): I48.91 - Unspecified atrial fibrillation (8) CAD (coronary artery disease) Code(s): I25.10 - ATHSCL HEART DISEASE OF [place] CORONARY ARTERY W/O ANG PCTRS (9) Hyperlipidemia Code(s): E78.5 - HYPERLIPIDEMIA, UNSPECIFIED (10) Hypertension Code(s): I10 - ESSENTIAL (PRIMARY) HYPERTENSION Qualifiers: Hypertension type: essential hypertension Qualified Code(s): I10 - Essential (primary) hypertension (11) Hypothyroidism Code(s): E03.9 - HYPOTHYROIDISM, UNSPECIFIED Qualifiers: Hypothyroidism type: unspecified Qualified Code(s): E03.9 - Hypothyroidism , unspecified (12) Seizure disorder Code(s): G40.909 - EPILEPSY, UNSP, NOT INTRACTABLE, WITHOUT STATUS EPILEPTICUS
--- NOTE | 2017-08-07 13:25 | PN ---
Progress Note (short form) - Note Progress Note: Patient seen and examined. feels much better. O/E: Cor: RSR, No murmurs, No gallops Lungs: Clear to P&A Abd: Soft, Normal bowel sounds, No organomegaly Ext:No significant edema Temp Pulse Resp BP Pulse Ox 97.9 F 73 18 135/74 97 08/07/17 10:00 08/07/17 10:00 08/07/17 10:00 08/07/17 10:00 08/07/17 08:00 CBC, BMP 08/07/17 06:30 08/07/17 06:30 Current Medications Generic Name Dose Route Start Last Admin Trade Name Freq PRN Reason Stop Dose Admin Albuterol/Ipratropium 1 amp 08/06/17 17:34 Duoneb - NEB Q4H PRN SHORTNESS OF BREATH Anastrozole 1 mg 08/07/17 10:00 08/07/17 09:24 Arimidex - PO 1 mg DAILY GUR[facility]INDER Administration Aspirin 81 mg 08/07/17 10:00 08/07/17 09:23 Asa - PO 81 mg DAILY GURVINDER Administration Atorvastatin Calcium 40 mg 08/06/17 22:00 08/06/17 21:56 Lipitor - PO 40 mg HS GURVINDER Administration Calcium Carbonate/Cholecalciferol 1 tab 08/06/17 22:00 08/07/17 09:24 Os-Bart 500+D - PO 1 tab BID [facility]UR[facility]INDER Administration Furosemide 40 mg 08/07/17 10:00 08/07/17 09:24 Lasix - PO 40 mg DAILY GUR[facility]INDER Administration CEFTRIAXONE 1 G/50 ML PREMIX 50 mls @ 100 mls/hr 08/06/17 11:00 08/07/17 09: 24 Ceftriaxone 1 Gm-D5w Bag IVPB 100 mls/hr DAILY [facility] Administration Levothyroxine Sodium 50 mcg 08/07/17 07:00 08/07/17 06:43 Synthroid - PO 50 mcg AM [facility]INDER Administration Methylprednisolone Sodium Succinate 40 mg 08/06/17 21:00 08/07/17 09:23 Solu-Medrol - IVPUSH 08/07/17 15:01 40 mg Q6H-IV GUR[facility]INDER Administration Metoprolol Tartrate 25 mg 08/06/17 22:00 08/07/17 09:24 Lopressor - PO 25 mg BID GUR[facility]INDER Administration Non-Formulary Medication 1 each 08/07/17 10:00 Multivit-Min/Fa/Lycopen/Lutein [Centrum Silver Tablet] PO DAILY [facility] Topiramate 25 mg 08/06/17 22:00 08/07/17 09:23 Topamax - PO 25 mg BID GUR[facility]INDER Administration Warfarin Sodium 3 mg 08/06/17 18:00 08/06/17 17:15 Coumadin - PO 3 mg DAILY@1800 G[facility]ER Administration INR, PTT INR 2.22 (0.82-1.09) H 08/07/17 06:30 72 y/o patient with remote h/o LLL wedge resection at [facility] > 10 yrs. ago -- pathology showed inflammation. Being followed by CT surgery at [facility] PET avid infrahilar mass--last PET was 04/15. she was seen by CT surgery 05/15. Had prior CT guided bx which revealed scar tissue. Also had navigational bronchoscopy with negative yield Patient comes in with worsening cough/shortness of breath. CT chest shows increase size of mass compared to 08/15 will need repeat PET-CT and CT surgery f/u for tissue diagnosis f/u on 08/[address] Hickey Being treated for bronchitis/COPD Symptomatically improved h/ounprovoked PE-INR is therapeutic re-emphasized the patient for f/u with CTS as an OP on 08/10. she agreed.
--- NOTE | 2017-08-07 14:02 | DS ---
Physical Examination Vital Signs: Vital Signs Temperature 97.9 F 08/07/17 10:00 Pulse Rate 73 08/07/17 10:00 Respiratory Rate 18 08/07/17 10:00 Blood Pressure 135/74 08/07/17 10:00 O2 Sat by Pulse Oximetry (%) 97 08/07/17 08:00 Labs: CBC, BMP 08/07/17 06:30 08/07/17 06:30 Discharge Summary Reason For Visit: CHEST PAIN Current Active Problems Chest pain (Acute) Mass of lower lobe of left lung (Acute) Condition: Improved - Instructions Diet, Activity, Other Instructions: Please return to the ED with new, persistent, or worsening symptoms. Please follow-up with providers as indicated. Referrals: Carmelo Zhao MD [Staff Physician] - (Please follow-up with Dr. Zhao as scheduled on 08/10/17 at 11am to discuss further options for your left lung mass) Reg Jones MD [Staff Physician] - (Please follow-up with Dr. Jones ( pulmonary) within 1 week for outpatient pulmonary function testing) Grey Julien MD [Staff Physician] - (Please follow-up with Dr. Julien within 2- 3 days for further cardiac testing) Laly Lewis MD [Primary Care Provider] - 1 Week Disposition: HOME - Home Medications Comprehensive Discharge Medication List: Ambulatory Orders Aspirin [ASA -] 81 mg PO DAILY 03/10/12 Atorvastatin Ca [Lipitor] 40 mg PO DAILY 03/10/12 Calcium Carbonate/Vitamin D3 [Calcium 600-Vit D3 200 Tablet] 1 each PO BID 03/10 Topiramate 25 mg PO BID 03/10/12 Warfarin Sodium 3 mg PO 09/22/13 Furosemide [Lasix -] 40 mg PO DAILY 06/18/15 Levothyroxine [Synthroid -] 50 mcg PO DAILY 06/18/15 Multivit-Min/FA/Lycopen/Lutein [Centrum Silver Tablet] 1 each PO DAILY 08/31/15 Albuterol Sulfate Inhaler - [Ventolin HFA Inhaler -] 2 inh PO PRN PRN 09/01/15 Anastrozole [Arimidex -] 1 mg PO DAILY 08/18/16 Metoprolol Tartrate 25 mg PO BID 08/18/16 Warfarin Na [Coumadin -] 2 mg PO HS #0 tab 08/07/17
[2017-08-07] MEDS ORDERED: PT OWN MED DRAWER 7, Y5N ONE (14:31)
[2017-08-07 15:26] VITALS: BP 119/61; PULSE 70; TEMP 98
== END 2017-08-07 16:29 | disposition home or self-care (01) ==
LOC: JER 22:33 → JERBED 08-06 08:56 → J4S 08-06 15:42
PROVIDERS: ADMIT Internal Medicine; ATTEND Registered Nurse
PROC: 3E0337Z Introduction of Electrolytic and Water Balance Substance into Peripheral Vein, Percutaneous Approach (ICD-10-PCS; principal; 2017-08-06)
PROC: 3E033NZ Introduction of Analgesics, Hypnotics, Sedatives into Peripheral Vein, Percutaneous Approach (ICD-10-PCS; 2017-08-06)
DX: R07.9 Chest pain, unspecified (principal); R91.8 Other nonspecific abnormal finding of lung field; I48.91 Unspecified atrial fibrillation; G40.909 Epilepsy, unspecified, not intractable, without status epilepticus; I25.10 Atherosclerotic heart disease of native coronary artery without angina pectoris; I10 Essential (primary) hypertension; E78.5 Hyperlipidemia, unspecified; E03.9 Hypothyroidism, unspecified; J44.9 Chronic obstructive pulmonary disease, unspecified; J45.909 Unspecified asthma, uncomplicated; Z79.82 Long term (current) use of aspirin; Z87.891 Personal history of nicotine dependence; Z79.01 Long term (current) use of anticoagulants
CPT/HCPCS: 36415; 71046-TC; 71250-TC; 71260-TC; 80053; 81003; 81015; 82550; 83880; 84484; 85025; 85027; 85610; 87086; 93005; 93010; 93306-TC; 96374; 99285-25; G0378

== ENCOUNTER 2017-12-18 23:39 | Observation (INO) | payer OTHER ==
[2017-12-18 23:43] VITALS: BMI 32.3
[2017-12-19] MEDS ORDERED: ASPIRIN 81 MG CHEWABLE TABLETS PO ONE (00:17)
[2017-12-19] MEDS ORDERED: ASPIRIN 325 MG ENTERIC COATED TABLET (FP) ONE (00:54)
--- NOTE | 2017-12-19 01:44 | PDOC ---
History of Present Illness - General History Source: Patient Exam Limitations: No Limitations <Maria Eugenia Bernard - Last Filed: 12/19/17 01:45> - History of Present Illness Beta Ayla given by EMS (Core Measure): No Beta Ayla taken at Home (Core Measure): Yes (atenolol was taken prior to arrival) <Gillian Shah - Last Filed: 12/19/17 02:20> - General Chief Complaint: Chest Pain Stated Complaint: CHEST PAIN Time Seen by Provider: 12/19/17 00:05 - History of Present Illness Initial Comments: 12/19/17 01:45 The patient is a 72 year old female with a significant past medical history of asthma, CAD, COPD, rectal bleeding, hypertension, hyperlipidemia, epilepsy, and hypothyroidism who presents to the emergency department complaining of chest pain and shortness of breath. The patient reports waking up from sleep with moderate chest pain. She describes the chest pain as sharp, radiating from substernal area to the left side, ranked 7/10 in severity, also radiating to the left arm. She reports shortness of breath with exertion when she was walking to the bathroom which prompted her to visit the emergency department for further evaluation. She states she sat in a chair and "felt shitty". The patient reports she is currently taking aspirin. The patient denies headache, dizziness, fevers, chills, nausea, vomiting, diarrhea, and constipation. Denies dysuria, frequency, urgency, and hematuria. Allergies: NKDA Past surgical history: Lung Biopsy Social history: Former smoker (1988). No reported alcohol or drug use. PCP: Dr. Lewis ([phone]) Journey Lineman: Dr. Wily Conley (admission, son) Home: (Maria Eugenia Bernard) Past History <Maria Eugenia Bernard - Last Filed: 12/19/17 01:45> - Past Medical History Anemia: No Asthma: Yes Cancer: No Cardiac Disorders: Yes (CAD, "irregular heart beat") CVA: No COPD: Yes (SOB) CHF: No Dementia: No Diabetes: No GI Disorders: Yes (RECTAL BLEEDING) Disorders: No HTN: Yes Hypercholesterolemia: Yes Liver Disease: No Seizures: Yes (EPILEPSY) Thyroid Disease: Yes (HYPO) - Surgical History Abdominal Surgery: No Appendectomy: No Cardiac Surgery: No Cholecystectomy: No Gastric Stapling: No GI Surgery: No Lung Surgery: Yes (Biopsy) Neurologic Surgery: No Orthopedic Surgery: No - Immunization History Td Vaccination: Yes TDAP Vaccination: Yes Immunization Up to Date: Yes - Suicide/Smoking/Psychosocial Hx Smoking Status: Yes Smoking History: Former smoker Have you smoked in the past 12 months: No Number of Cigarettes Smoked Daily: 0 If you are a former smoker, when did you quit?: 1988 Information on smoking cessation initiated: No 'Breaking Loose' booklet given: 08/18/16 Hx Alcohol Use: No Drug/Substance Use Hx: No Substance Use Type: None Hx Substance Use Treatment: No <Gillian Shah - Last Filed: 12/19/17 02:20> - Past Medical History Allergies/Adverse Reactions: Allergies Allergy/AdvReac Type Severity Reaction Status Date / Time No Known Drug Allergies Allergy Verified 12/18/17 23:43 Home Medications: Ambulatory Orders Aspirin [ASA -] 81 mg PO DAILY 03/10/12 Atorvastatin Ca [Lipitor] 40 mg PO DAILY 03/10/12 Calcium Carbonate/Vitamin D3 [Calcium 600-Vit D3 200 Tablet] 1 each PO BID 03/10 Topiramate 25 mg PO BID 03/10/12 Warfarin Sodium 3 mg PO 09/22/13 Furosemide [Lasix -] 40 mg PO DAILY 06/18/15 Levothyroxine [Synthroid -] 50 mcg PO DAILY 06/18/15 Multivit-Min/FA/Lycopen/Lutein [Centrum Silver Tablet] 1 each PO DAILY 08/31/15 Albuterol Sulfate Inhaler - [Ventolin HFA Inhaler -] 2 inh PO PRN PRN 09/01/15 Anastrozole [Arimidex -] 1 mg PO DAILY 08/18/16 Metoprolol Tartrate 25 mg PO BID 08/18/16 Warfarin Na [Coumadin -] 2 mg PO HS #0 tab 08/07/17 Cardiac Specific PMH - Complaint Specific PMHX Angina: No Pacemaker: No Pulmonary Embolus: Yes <Gillian Shah - Last Filed: 12/19/17 02:20> Review of Systems - Review of Systems Able to Perform ROS?: Yes <Maria Eugenia Bernard - Last Filed: 12/19/17 01:45> <Gillian Shah - Last Filed: 12/19/17 02:20> - Review of Systems Comments:: CONSTITUTIONAL: Absent: fever, chills, diaphoresis, generalized weakness, malaise, loss of appetite HEENT: Absent: rhinorrhea, nasal congestion, throat pain, throat swelling, difficulty swallowing, mouth swelling, ear pain, eye pain, visual Changes CARDIOVASCULAR: (+)Chest pain. Absent: syncope, palpitations, irregular heart rate, lightheadedness, peripheral edema RESPIRATORY: (+)Dyspnea with exertion. Absent: cough, shortness of breath, orthopnea, wheezing, stridor, hemoptysis GASTROINTESTINAL: Absent: abdominal pain, abdominal distension, nausea, vomiting, diarrhea, constipation, melena, hematochezia GENITOURINARY: Absent: dysuria, frequency, urgency, hesitancy, hematuria, flank pain, genital pain MUSCULOSKELETAL: (+)Left arm pain. Absent: myalgia, arthralgia, joint swelling SKIN: Absent: rash, itching, pallor HEMATOLOGIC/IMMUNOLOGIC: Absent: easy bleeding, easy bruising, lymphadenopathy, frequent infections ENDOCRINE: Absent: unexplained weight gain, unexplained weight loss, heat intolerance, cold intolerance NEUROLOGIC: Absent: headache, focal weakness or paresthesias, dizziness, unsteady gait, seizure, mental status changes, bladder or bowel incontinence PSYCHIATRIC: Absent: anxiety, depression, suicidal or homicidal ideation, hallucinations. (Maria Eugenia Bernard) *Physical Exam <Maria Eugenia Bernard - Last Filed: 12/19/17 01:45> <Gillian Shah - Last Filed: 12/19/17 02:20> - Vital Signs Last Vital Signs Temp Pulse Resp BP Pulse Ox 98.2 F 90 20 140/67 100 12/18/17 23:41 12/18/17 23:41 12/18/17 23:41 12/18/17 23:41 12/18/17 23:41 - Physical Exam Comments: GENERAL: Well developed, well nourished. Awake and alert. No acute distress. HEENT: Normocephalic, atraumatic. PERRLA, EOMI. No conjunctival pallor. Sclera are non- icteric. Moist mucous membranes. Oropharynx is clear. NECK: Supple. Full ROM. No JVD. Carotid pulses 2+ and symmetric, without bruits. No thyromegaly. No lymphadenopathy. CARDIOVASCULAR: Regular rate and rhythm. No murmurs, rubs, or gallops. Distal pulses are 2+ and symmetric. PULMONARY: No evidence of respiratory distress. Lungs clear to auscultation bilaterally. No wheezing, rales or rhonchi. ABDOMINAL: (+)Protuberant belly, soft. Non-tender. No rebound or guarding. No organomegaly. Normoactive bowel sounds. MUSCULOSKELETAL Normal range of motion at all joints. No bony deformities or tenderness. No CVA tenderness. EXTREMITIES: No cyanosis. No clubbing. No edema. No calf tenderness. SKIN: Warm and dry. Normal capillary refill. No rashes. No jaundice. NEUROLOGICAL: Alert, awake, appropriate. Cranial nerves 2-12 intact. No deficits to light touch and temperature in face, upper extremities and lower extremities. No motor deficits in the in face, upper extremities and lower extremities. Normoreflexic in the upper and lower extremities. Normal speech. Toes are down- going bilaterally. PSYCHIATRIC: Cooperative. Good eye contact. Appropriate mood and affect. (Maria Eugenia Bernard) - Procedure Monitoring Vital Signs: Vital Signs Temp Pulse Resp BP Pulse Ox 98.2 F 90 20 140/67 100 12/18/17 23:41 12/18/17 23:41 12/18/17 23:41 12/18/17 23:41 12/18/17 23:41 - RADIOLOGY Radiology Studies Ordered: Category Date Time Status CHEST X-RAY PORTABLE* [RAD] Stat Radiology 12/19/17 02:17 Ordered - Medications Given in the ED: ED Medications Discontinued Medications Generic Name Dose Route Start Last Admin Trade Name Freq PRN Reason Stop Dose Admin Aspirin 324 mg 12/19/17 00:17 12/19/17 01:13 Asa - PO 12/19/17 00:18 324 mg ONCE ONE Administration Medical Decision Making <Maria Eugenia Bernard - Last Filed: 12/19/17 01:45> <Gillian Shah - Last Filed: 12/19/17 02:20> - Medical Decision Making 12/19/17 02:03 This patient was sleeping and developed substernal chest pain radiating to her left arm and became short of breath. Past medical history is coronary artery disease status post cardiac catheterization. Patient did have a Persantine stress test done on 08/21/2016 that was negative. At that time she had normal left ventricular contraction with LV ejection fraction of 64%. Echo was done 08/06/2017 that showed left ventricular systolic function mildly reduced Trace to mild mitral regurgitation. Left atrium is mildly dilated. I atrium is mildly dilated. Trivial pericardial effusion, not hemodynamically significant. Septal motion is consistent with conduction abnormality 12/19/17 02:11 She also has a remote history of left lower lobe wedge resection in [facility] more than 10 years ago and the pathology showed inflammation. She is followed by CT surgery. Dr. Cece Nails. History of pulmonary embolus on Coumadin, hypertension, coronary artery disease , left lower lobectomy EKG from 08/06/2017 with sinus rhythm, 83 bpm with a first-degree AV block and left bundle branch block EKG see EKG is normal sinus rhythm at 79 bpm with a left bundle branch block Journey Lineman is Dr. Schulz. PCP at [address] [place] [address] (Gillian Shah) *DC/Admit/Observation/Transfer <Maria Eugenia Bernard - Last Filed: 12/19/17 01:45> - Discharge Dispostion Decision to Admit order: No <Gillian Shah - Last Filed: 12/19/17 02:20> Diagnosis at time of Disposition: Anticoagulated on Coumadin Chest pain Qualifiers: Chest pain type: precordial pain Qualified Code(s): R07.2 - Precordial pain Dyspnea Qualifiers: Dyspnea type: shortness of breath Qualified Code(s): R06.02 - Shortness of breath - Discharge Dispostion Decision to Admit order Date/Time: Decision to Admit Order Category Date Time Status Decision to Admit to Hospital Routine Admission 12/19/17 02:18 Ordered - Referrals Referrals: Laly Lewis MD [Primary Care Provider] - - Patient Instructions - Post Discharge Activity - Attestations Scribe Attestion: Documentation prepared by Maria Eugenia Bernard, acting as director global medical affairs for Gillian Shah MD. (Maria Eugenia Bernard)
[2017-12-19 02:31] LABS: BASO % 0.7 % (0-2.0); EOS % 1.2 % (0-4.5); HEMATOCRIT 34.8 % (32.4-45.2); HEMOGLOBIN 11.4 GM/dL (10.7-15.3); LYMPH % 19.8 % (8-40); MCH 29.6 pg (25.7-33.7); MCHC 32.7 g/dl (32.0-36.0); MEAN CELL VOLUME 90.5 fl (80-96); MEAN PLT VOLUME 7.9 fl (7.5-11.1); MONO % 3.5 % (3.8-10.2); NEUT % 74.8 % (42.8-82.8); PLATELET COUNT 272 K/MM3 (134-434); RBC 3.84 M/mm3 (3.60-5.2); RDW 14.1 % (11.6-15.6); WHITE BLOOD COUNT 9.5 K/mm3 (4.0-10.0)
--- NOTE | 2017-12-19 02:35 | PN ---
Teaching Attending Note Name of Resident: Nora Jean-Baptiste ATTENDING PHYSICIAN STATEMENT I saw and evaluated the patient. I reviewed the resident's note and discussed the case with the resident. I agree with the resident's findings and plan as documented. SUBJECTIVE: Patient is a 72 year old woman with chief complaint of chest pain and SOB for one day. Pain is pleuritic and reproduced by movement of her laft arm. She has past medical history of left lung mass and prior thoracotomy wedge biopsy and has been getting serial PET scans and CT surgery monitoring. She was admitted in 07/2017 for similar presentation and ACS was ruled out but the chest mass was noted to have increased in size. Biopsy in the past showed inflammation and no malignancy and she also had navigational bronchoscopy which was negative. She also has PMH of ?Afib (EKG was NSR in 07/2017), unprovoked PE in 2012 and is on coumadin, asthma, CAD, COPD, rectal bleeding, hypertension, hyperlipidemia, epilepsy, breast cancer (on Arimidex) and hypothyroidism. The patient reports waking up from sleep with moderate chest pain. She describes the chest pain as sharp, radiating from substernal area to the left side, ranked 7/10 in severity , also radiating to the left arm. She reports shortness of breath with exertion when she was walking to the bathroom. OBJECTIVE: Alert and in mild acute respiratory distress Vital Signs Period Temp Pulse Resp BP Sys/Landis Pulse Ox Last 24 Hr 98.2 F 90 20 140/67 100 HEENT: No Jaundice, eye redness or discharge, PERRLA, EOMI. External ears are normal and hearing is grossly intact. No nasal discharge. Neck: Supple, nontender. No palpable adenopathy or thyromegaly. No JVD Chest: Good effort. Thoracotomy scar. Diminished breath sounds and clear to percussion. Heart: Regular. No S3, rub or murmur Abdomen: Not distended, soft, nontender and no HSM. No rebound or guarding. Normoactive bowel sounds. Ext: Peripheral pulses intact. No leg edema. Skin: Warm and dry. No petechiae, rash or ecchymosis. Neuro: Alert. Oriented x3. CN 2-12 grossly intact. Sensation grossly intact in all four extremities and DTR are symmetric. Home Medications Medication Instructions Recorded Aspirin [ASA -] 81 mg PO DAILY 03/10/12 Atorvastatin Ca [Lipitor] 40 mg PO DAILY 03/10/12 Calcium Carbonate/Vitamin D3 1 each PO BID 03/10/12 [Calcium 600-Vit D3 200 Tablet] Topiramate 25 mg PO BID 03/10/12 Warfarin Sodium 3 mg PO WETHFRSA 09/22/13 Furosemide [Lasix -] 40 mg PO DAILY 06/18/15 Levothyroxine [Synthroid -] 50 mcg PO DAILY 06/18/15 Multivit-Min/FA/Lycopen/Lutein 1 each PO DAILY 08/31/15 [Centrum Silver Tablet] Albuterol Sulfate Inhaler - 2 inh PO PRN PRN 09/01/15 [Ventolin HFA Inhaler -] Anastrozole [Arimidex -] 1 mg PO DAILY 08/18/16 Metoprolol Tartrate 25 mg PO BID 08/18/16 Warfarin Na [Coumadin -] 2 mg PO HS #0 tab 08/07/17 Laboratory Results - last 24 hr 12/19/17 02:20 WBC 9.5 RBC 3.84 Hgb 11.4 Hct 34.8 MCV 90.5 MCH 29.6 MCHC 32.7 RDW 14.1 Plt Count 272 D MPV 7.9 Neutrophils % 74.8 Lymphocytes % 19.8 Monocytes % 3.5 L Eosinophils % 1.2 Basophils % 0.7 Nucleated RBC % 0 ASSESSMENT AND PLAN: 1. Chest Pain/SOB - Patient being admitted as an observation case to telemetry to rule out acute MN. Will do serial EKG and troponin, get ECHO and cardiology consult. ALready on Asprin, metoprolol and Lipitor. Was recently treated for bronchitis. Possible her symptoms may be related to her lung mass. Will reconsult cardiothoraxic surgery. 2. COPD - Continue inhalational bronchodilators and O2 PRN. 3. Remote PE/paroxysmal afib - continue coumadin and monitor INR. If her symptoms persist, may need CTPA to rule out new PE. 4. DVT prophylaxis - On coumadin 5. Advance directives - Full code
[2017-12-19 02:48] LABS: INR 2.27 (0.82-1.09); PROTHROMBIN TIME (PATIENT) 25.7 SEC (9.7-13.0)
[2017-12-19 02:51] LABS: ACTIVATED PTT 34.4 SECONDS (26.9-34.4)
[2017-12-19 02:58] LABS: ANION GAP 8 (8-16); BILIRUBIN,TOTAL 0.2 mg/dL (0.2-1.0); BLOOD UREA NITROGEN 18 mg/dL (7-18); CALCIUM 8.7 mg/dL (8.5-10.1); CHLORIDE 109 mmol/L (98-107); CO2 26 mmol/L (21-32); CREATININE 1.1 mg/dL (0.55-1.02); GLUCOSE,RANDOM 152 mg/dL (74-106); MAGNESIUM 2.2 mg/dL (1.8-2.4); POTASSIUM 3.7 mmol/L (3.5-5.1); SGOT/AST 14 U/L (15-37); SGPT/ALT 16 U/L (12-78); SODIUM 143 mmol/L (136-145); TOT PROT 6.4 g/dl (6.4-8.2)
[2017-12-19 03:01] LABS: ALK PHOS 96 U/L (45-117); N-TERMINAL BNP 434.24 pg/ml (5-125)
--- NOTE | 2017-12-19 03:14 | HP ---
CHIEF COMPLAINT: PCP: HISTORY OF PRESENT ILLNESS: ER course was notable for: (1) (2) (3) Recent Travel: PAST MEDICAL HISTORY: PAST SURGICAL HISTORY: Social History: Smoking: Alcohol: Drugs: Family History: Allergies No Known Drug Allergies Allergy (Verified 12/18/17 23:43) HOME MEDICATIONS: Home Medications Medication Instructions Recorded Aspirin [ASA -] 81 mg PO DAILY 03/10/12 Atorvastatin Ca [Lipitor] 40 mg PO DAILY 03/10/12 Calcium Carbonate/Vitamin D3 1 each PO BID 03/10/12 [Calcium 600-Vit D3 200 Tablet] Topiramate 25 mg PO BID 03/10/12 Warfarin Sodium 3 mg PO TUWETHFRSA 09/22/13 Furosemide [Lasix -] 40 mg PO DAILY 06/18/15 Levothyroxine [Synthroid -] 50 mcg PO DAILY 06/18/15 Multivit-Min/FA/Lycopen/Lutein 1 each PO DAILY 08/31/15 [Centrum Silver Tablet] Albuterol Sulfate Inhaler - 2 inh PO PRN PRN 09/01/15 [Ventolin HFA Inhaler -] Anastrozole [Arimidex -] 1 mg PO DAILY 08/18/16 Metoprolol Tartrate 25 mg PO BID 08/18/16 Warfarin Na [Coumadin -] 2 mg PO HS #0 tab 08/07/17 REVIEW OF SYSTEMS CONSTITUTIONAL: Absent: fever, chills, diaphoresis, generalized weakness, malaise, loss of appetite, weight change HEENT: Absent: rhinorrhea, nasal congestion, throat pain, throat swelling, difficulty swallowing, mouth swelling, ear pain, eye pain, visual changes CARDIOVASCULAR: Absent: chest pain, syncope, palpitations, irregular heart rate, lightheadedness , peripheral edema RESPIRATORY: Absent: cough, shortness of breath, dyspnea with exertion, orthopnea, wheezing, stridor, hemoptysis GASTROINTESTINAL: Absent: abdominal pain, abdominal distension, nausea, vomiting, diarrhea, constipation, melena, hematochezia GENITOURINARY: Absent: dysuria, frequency, urgency, hesitancy, hematuria, flank pain, genital pain MUSCULOSKELETAL: Absent: myalgia, arthralgia, joint swelling, back pain, neck pain SKIN: Absent: rash, itching, pallor HEMATOLOGIC/IMMUNOLOGIC: Absent: easy bleeding, easy bruising, lymphadenopathy, frequent infections ENDOCRINE: Absent: unexplained weight gain, unexplained weight loss, heat intolerance, cold intolerance NEUROLOGIC: Absent: headache, focal weakness or paresthesias, dizziness, unsteady gait, seizure, mental status changes, bladder or bowel incontinence PSYCHIATRIC: Absent: anxiety, depression, suicidal or homicidal ideation, hallucinations. PHYSICAL EXAMINATION Vital Signs - 24 hr 12/18/17 12/19/17 12/19/17 23:41 02:35 02:36 Temperature 98.2 F Pulse Rate 90 Pulse Rate [ Right Radial] Respiratory 20 Rate Blood Pressure 140/67 Blood Pressure [Right Arm] O2 Sat by Pulse 100 100 100 Oximetry (%) 12/19/17 03:12 Temperature Pulse Rate Pulse Rate [ 80 Right Radial] Respiratory 20 Rate Blood Pressure Blood Pressure 142/64 [Right Arm] O2 Sat by Pulse 100 Oximetry (%) GENERAL: Awake, alert, and fully oriented, in no acute distress. HEAD: Normal with no signs of trauma. EYES: Pupils equal, round and reactive to light, extraocular movements intact, sclera anicteric, conjunctiva clear. No lid lag. EARS, NOSE, THROAT: Ears normal, nares patent, oropharynx clear without exudates. Moist mucous membranes. NECK: Normal range of motion, supple without lymphadenopathy, JVD, or masses. LUNGS: Breath sounds equal, clear to auscultation bilaterally. No wheezes, and no crackles. No accessory muscle use. HEART: Regular rate and rhythm, normal S1 and S2 without murmur, rub or gallop. ABDOMEN: Soft, nontender, not distended, normoactive bowel sounds, no guarding, no rebound, no masses. No hepatomegaly or splenomegaly. MUSCULOSKELETAL: Normal range of motion at all joints. No bony deformities or tenderness. No CVA tenderness. UPPER EXTREMITIES: 2+ pulses, warm, well-perfused. No cyanosis. No clubbing. No peripheral edema. LOWER EXTREMITIES: 2+ pulses, warm, well-perfused. No calf tenderness. No peripheral edema. NEUROLOGICAL: Cranial nerves II-XII intact. Normal speech. Normal gait. PSYCHIATRIC: Cooperative. Good eye contact. Appropriate mood and affect. SKIN: Warm, dry, normal turgor, no rashes or lesions noted, normal capillary refill. Laboratory Results - last 24 hr 12/19/17 12/19/17 12/19/17 02:20 02:20 02:20 WBC 9.5 RBC 3.84 Hgb 11.4 Hct 34.8 MCV 90.5 MCH 29.6 MCHC 32.7 RDW 14.1 Plt Count 272 D MPV 7.9 Neutrophils % 74.8 Lymphocytes % 19.8 Monocytes % 3.5 L Eosinophils % 1.2 Basophils % 0.7 Nucleated RBC % 0 PT with INR 25.70 H INR 2.27 H PTT (Actin FS) 34.4 D Sodium 143 Potassium 3.7 Chloride 109 H Carbon Dioxide 26 Anion Gap 8 BUN 18 Creatinine 1.1 H Creat Clearance w eGFR 48.82 Random Glucose 152 H Calcium 8.7 Magnesium 2.2 Total Bilirubin 0.2 D AST 14 L ALT 16 Alkaline Phosphatase 96 Troponin I < 0.02 B-Natriuretic Peptide 434.24 H Total Protein 6.4 Albumin 3.0 L ASSESSMENT/PLAN: Hospitalist Screening - Colonoscopy Questionnaire Colonoscopy Questionnaire: Colonoscopy Questionnaire
[2017-12-19] MEDS ORDERED: ALBUTEROL SO4 18 GM HFA INHALER IH PRN (03:39)
--- NOTE | 2017-12-19 03:56 | HP ---
CHIEF COMPLAINT: chest pain PCP: Dr. Ponce HISTORY OF PRESENT ILLNESS: 72yo woman with PMH of Afib on Coumadin, unprovoked PE in 2012, CAD, COPD, HTN, HLD, epilepsy, hypothyroidism, Breast ca (on Arimidex), and non-malignant lung mass (s/p wedge biopsy and nagivational bronchoscopy) who presents with chest pain for the past day. Patient states the pain woke her up from sleep, describes it as sharp in quality, radiating from substernum to L arm, initially 8/10 in severity, now 6/10. Patient presented with similar episode in July and ACS was ruled out; Nuclear stress wnl (normal LV contraction with LVEF 64%) . At baseline, patient has dyspnea at rest, but states that her breathing is slightly worse. No diaphoresis or palpitation. Denies any fever, chills, cough, rhinorrhea or urinary symptoms. No recent trauma or exercise to the chest. ED course was notable for: (1) 1st Troponin negative (2) (3) Recent Travel: none PAST MEDICAL HISTORY: see HPI PAST SURGICAL HISTORY: LLL wedge resection >10y ago at [facility] Social History: Tobacco: never Alcohol: none Drugs: none Family History: Allergies No Known Drug Allergies Allergy (Verified 12/18/17 23:43) HOME MEDICATIONS: NEEDS TO BE RECONCILED Home Medications Medication Instructions Recorded Aspirin [ASA -] 81 mg PO DAILY 03/10/12 Atorvastatin Ca [Lipitor] 40 mg PO DAILY 03/10/12 Calcium Carbonate/Vitamin D3 1 each PO BID 03/10/12 [Calcium 600-Vit D3 200 Tablet] Topiramate 25 mg PO BID 03/10/12 Warfarin Sodium 3 mg PO FR09/22/13 Furosemide [Lasix -] 40 mg PO DAILY 06/18/15 Levothyroxine [Synthroid -] 50 mcg PO DAILY 06/18/15 Multivit-Min/FA/Lycopen/Lutein 1 each PO DAILY 08/31/15 [Centrum Silver Tablet] Albuterol Sulfate Inhaler - 2 inh PO PRN PRN 09/01/15 [Ventolin HFA Inhaler -] Anastrozole [Arimidex -] 1 mg PO DAILY 08/18/16 Metoprolol Tartrate 25 mg PO BID 08/18/16 Warfarin Na [Coumadin -] 2 mg PO HS #0 tab 08/07/17 REVIEW OF SYSTEMS CONSTITUTIONAL: Absent: fever, chills, diaphoresis, generalized weakness, malaise, loss of appetite, weight change HEENT: Absent: rhinorrhea, nasal congestion, throat pain, throat swelling, difficulty swallowing, mouth swelling, ear pain, eye pain, visual changes CARDIOVASCULAR: + chest pain Absent:, syncope, palpitations, irregular heart rate, lightheadedness, peripheral edema RESPIRATORY: +shortness of breath, dyspnea with exertion Absent: cough, shortness of breath, dyspnea with exertion, orthopnea, wheezing, stridor, hemoptysis GASTROINTESTINAL: Absent: abdominal pain, abdominal distension, nausea, vomiting, diarrhea, constipation, melena, hematochezia GENITOURINARY: Absent: dysuria, frequency, urgency, hesitancy, hematuria, flank pain, genital pain MUSCULOSKELETAL: Absent: myalgia, arthralgia, joint swelling, back pain, neck pain SKIN: Absent: rash, itching, pallor HEMATOLOGIC/IMMUNOLOGIC: Absent: easy bleeding, easy bruising, lymphadenopathy, frequent infections ENDOCRINE: Absent: unexplained weight gain, unexplained weight loss, heat intolerance, cold intolerance NEUROLOGIC: Absent: headache, focal weakness or paresthesias, dizziness, unsteady gait, seizure, mental status changes, bladder or bowel incontinence PSYCHIATRIC: Absent: anxiety, depression, suicidal or homicidal ideation, hallucinations. PHYSICAL EXAMINATION Vital Signs - 24 hr 12/18/17 12/19/17 12/19/17 23:41 02:35 02:36 Temperature 98.2 F Pulse Rate 90 Pulse Rate [ Right Radial] Respiratory 20 Rate Blood Pressure 140/67 Blood Pressure [Right Arm] O2 Sat by Pulse 100 100 100 Oximetry (%) 12/19/17 03:12 Temperature Pulse Rate Pulse Rate [ 80 Right Radial] Respiratory 20 Rate Blood Pressure Blood Pressure 142/64 [Right Arm] O2 Sat by Pulse 100 Oximetry (%) GENERAL: aaox3, nad HEENT: PERRL, EOMI, sclera anicteric, conjunctiva clear, oropharynx clear without exudates, MMM NECK: supple LUNGS: diminished at bases, no wheezing/rales/rhonchi appreciated HEART: RRR, normal s1/s2, +anterior chest wall TTP ABDOMEN: soft, obese, NTND, no suprapubic tenderness LOWER EXTREMITIES: 2+ DP pulses, wwp, no calf tenderness, no edema NEUROLOGICAL: Cranial nerves II-XII intact. Normal speech Laboratory Results - last 24 hr 12/19/17 12/19/17 12/19/17 02:20 02:20 02:20 WBC 9.5 RBC 3.84 Hgb 11.4 Hct 34.8 MCV 90.5 MCH 29.6 MCHC 32.7 RDW 14.1 Plt Count 272 D MPV 7.9 Neutrophils % 74.8 Lymphocytes % 19.8 Monocytes % 3.5 L Eosinophils % 1.2 Basophils % 0.7 Nucleated RBC % 0 PT with INR 25.70 H INR 2.27 H PTT (Actin FS) 34.4 D Sodium 143 Potassium 3.7 Chloride 109 H Carbon Dioxide 26 Anion Gap 8 BUN 18 Creatinine 1.1 H Creat Clearance w eGFR 48.82 Random Glucose 152 H Calcium 8.7 Magnesium 2.2 Total Bilirubin 0.2 D AST 14 L ALT 16 Alkaline Phosphatase 96 Troponin I < 0.02 B-Natriuretic Peptide 434.24 H Total Protein 6.4 Albumin 3.0 L ASSESSMENT/PLAN: 72yo woman with PMH of Afib on Coumadin, unprovoked PE in 2012, CAD, COPD, HTN, HLD, epilepsy, hypothyroidism, Breast ca (on Arimidex), and non-malignant lung mass (s/p wedge biopsy and nagivational bronchoscopy) who presents with chest pain for the past day #chest pain, r/o ACS -Cardiology Consulted (Dr. Mcgowan, OP cardiology) -telemetry monitoring -Serial Troponins/EKG (1st trop neg) -2D ECHO #sob, ? worse than baseline COPD -Check pre and post oxygenation -Consider CTA to r/o PE if symptoms persist #HTN -confirm home medications and restart in AM #COPD -c/w home Ventolin -O2 therapy to maintain SpO2 >90% #Afib on Coumadin, rate control -Daily INR check -Confirm home Warfarin dose #hypothyroidism c/w home synthroid after confirming dose #epilepsy c/w home Topiramate #FEN PO intake Lytes wnl Na controlled diet #PPX DVT on Coumadin #DISPO: obs tele FULL code d/w Dr. Ny Visit type - Emergency Visit Emergency Visit: Yes Care time: The patient presented to the Emergency Department on the above date and was hospitalized for further evaluation of their emergent condition. - New Patient This patient is new to me today: Yes Date on this admission: 12/19/17 - Critical Care Critical Care patient: No Hospitalist Screening - Colonoscopy Questionnaire Colonoscopy Questionnaire: Colonoscopy Questionnaire - Patient: 50 - 75 years old and never had a screening colonoscopy: Unknown History of colon or rectal polyps, or CA: Unknown History of IBD, Crohn's disease or UC: Unknown History of abdominal radiation therapy as a child: Unknown - Relative: 1 with colon or rectal CA, or polyps at age 60 or younger: Unknown Colon or rectal CA diagnosed at age 45 or younger: Unknown Multiple relatives with colon or rectal CA: Unknown - Outcome: Screening Result: Negative Screen
[2017-12-19] MEDS: HEPARIN NA (PORCINE) 5,000 UNITS/ML 1ML VIAL SQ SCH ×2 (07:30→16:43)
[2017-12-19 08:57] LABS: HEMOGLOBIN 10.9 GM/dL (10.7-15.3); MCH 29.7 pg (25.7-33.7); MCHC 33.1 g/dl (32.0-36.0); MEAN PLT VOLUME 8.1 fl (7.5-11.1); PLATELET COUNT 302 K/MM3 (134-434); RBC 3.67 M/mm3 (3.60-5.2); RDW 14.5 % (11.6-15.6); WHITE BLOOD COUNT 9.8 K/mm3 (4.0-10.0)
[2017-12-19 09:32] LABS: CHLORIDE 110 mmol/L (98-107); POTASSIUM 3.6 mmol/L (3.5-5.1); SODIUM 143 mmol/L (136-145)
[2017-12-19 09:37] LABS: ANION GAP 8 (8-16); BLOOD UREA NITROGEN 17 mg/dL (7-18); CALCIUM 8.6 mg/dL (8.5-10.1); CO2 25 mmol/L (21-32); CREATININE 0.9 mg/dL (0.55-1.02); GLUCOSE,RANDOM 92 mg/dL (74-106)
[2017-12-19] MEDS: ASPIRIN 81 MG CHEWABLE TABLETS PO SCH (10:00)
[2017-12-19] MEDS: LEVOTHYROXINE NA 50 MCG TABLET (FP) PO SCH (10:00)
[2017-12-19] MEDS: ATORVASTATIN CA 40 MG TABLET (FP) PO SCH (10:00)
[2017-12-19] MEDS: FUROSEMIDE 40 MG TABLET (FP) PO SCH (10:00)
[2017-12-19 12:45] LABS: INR 2.64 (0.82-1.09); PROTHROMBIN TIME (PATIENT) 29.8 SEC (9.7-13.0)
--- NOTE | 2017-12-19 13:15 | EKG ---
Test Reason : Blood Pressure : / mmHG Vent. Rate : 079 BPM Atrial Rate : 079 BPM P-R Int : 158 ms QRS Dur : 140 ms QT Int : 390 ms P-R-T Axes : 065 004 099 degrees QTc Int : 447 ms POOR DATA QUALITY, INTERPRETATION MAY BE ADVERSELY AFFECTED NORMAL SINUS RHYTHM LEFT BUNDLE BRANCH BLOCK ABNORMAL ECG WHEN COMPARED WITH ECG OF 06-AUG-2017 00:12, DC INTERVAL HAS DECREASED Confirmed by NURYS GARCIA MD ([id number]) on 12/19/2017 1:15:29 PM Referred By: Confirmed By:NURYS GARCIA MD
[2017-12-19] MEDS: METOPROLOL TARTRATE 25 MG TABLET (FP) PO SCH ×2 (13:21→22:35)
[2017-12-19] MEDS: TOPIRAMATE 25 MG TABLET (FP) PO SCH ×2 (13:21→22:35)
[2017-12-19] MEDS ORDERED: NITROGLYCERIN SUBLINGUAL 1/150 0.4 MG TAB SL PRN (17:53)
[2017-12-19] MEDS ORDERED: WARFARIN NA 2 MG TABLET (UD) PO SCH (18:00)
--- NOTE | 2017-12-19 18:39 | PN ---
<Júnior Plunkett - Last Filed: 12/19/17 18:23> Physical Exam: SUBJECTIVE: Patient seen and examined at bedside. No acute events. OBJECTIVE: Vital Signs Period Temp Pulse Resp BP Sys/Landis Pulse Ox Last 24 Hr 98.2 F-98.2 F 67-90 16-20 122-142/45-67 100-100 GENERAL: The patient is awake, alert, and fully oriented, in no acute distress. HEAD: Normal with no signs of trauma. Alopecia EYES: sclera anicteric, conjunctiva clear. No ptosis. ENT: oropharynx clear without exudates, moist mucous membranes. NECK: Trachea midline, full range of motion, supple. LUNGS: Breath sounds equal, clear to auscultation bilaterally, no wheezes, no crackles, no accessory muscle use. HEART: Regular rate and rhythm, S1, S2 without murmur, rub or gallop. ABDOMEN: Soft, nontender, nondistended, normoactive bowel sounds, no guarding, no rebound, no hepatosplenomegaly, no masses. EXTREMITIES: 2+ pulses, warm, well-perfused, no edema. NEUROLOGICAL: Cranial nerves II through XII grossly intact. Normal speech, gait not observed. PSYCH: Normal mood, normal affect. SKIN: seborrheic dermatosis. Warm, dry, normal turgor Laboratory Results - last 24 hr 12/19/17 12/19/17 12/19/17 02:20 02:20 02:20 WBC 9.5 RBC 3.84 Hgb 11.4 Hct 34.8 MCV 90.5 MCH 29.6 MCHC 32.7 RDW 14.1 Plt Count 272 D MPV 7.9 Neutrophils % 74.8 Lymphocytes % 19.8 Monocytes % 3.5 L Eosinophils % 1.2 Basophils % 0.7 Nucleated RBC % 0 PT with INR 25.70 H INR 2.27 H PTT (Actin FS) 34.4 D Sodium 143 Potassium 3.7 Chloride 109 H Carbon Dioxide 26 Anion Gap 8 BUN 18 Creatinine 1.1 H Creat Clearance w eGFR 48.82 Random Glucose 152 H Calcium 8.7 Magnesium 2.2 Total Bilirubin 0.2 D AST 14 L ALT 16 Alkaline Phosphatase 96 Troponin I < 0.02 B-Natriuretic Peptide 434.24 H Total Protein 6.4 Albumin 3.0 L 12/19/17 12/19/17 12/19/17 03:50 08:46 08:46 WBC 9.8 RBC 3.67 Hgb 10.9 Hct 33.0 MCV 90.0 MCH 29.7 MCHC 33.1 RDW 14.5 Plt Count 302 MPV 8.1 Neutrophils % Lymphocytes % Monocytes % Eosinophils % Basophils % Nucleated RBC % PT with INR INR PTT (Actin FS) Sodium 143 Potassium 3.6 Chloride 110 H Carbon Dioxide 25 Anion Gap 8 BUN 17 Creatinine 0.9 Creat Clearance w eGFR Random Glucose 92 Calcium 8.6 Magnesium Total Bilirubin AST ALT Alkaline Phosphatase Troponin I < 0.02 B-Natriuretic Peptide Total Protein Albumin 12/19/17 12/19/17 11:30 16:00 WBC RBC Hgb Hct MCV MCH MCHC RDW Plt Count MPV Neutrophils % Lymphocytes % Monocytes % Eosinophils % Basophils % Nucleated RBC % PT with INR 29.80 H INR 2.64 H PTT (Actin FS) Sodium Potassium Chloride Carbon Dioxide Anion Gap BUN Creatinine Creat Clearance w eGFR Random Glucose Calcium Magnesium Total Bilirubin AST ALT Alkaline Phosphatase Troponin I < 0.02 B-Natriuretic Peptide Total Protein Albumin Active Medications Generic Name Dose Route Start Last Admin Trade Name Freq PRN Reason Stop Dose Admin Albuterol Sulfate 2 puff 12/19/17 03:39 Ventolin Hfa Inhaler - IH Q4H PRN ASTHMA Anastrozole 1 mg 12/20/17 10:00 Arimidex - PO DAILY GUR[facility]INDER Aspirin 81 mg 12/19/17 10:00 12/19/17 10:00 Asa - PO 81 mg DAILY G[facility]INDER Administration Atorvastatin Calcium 40 mg 12/19/17 10:00 12/19/17 10:00 Lipitor - PO 40 mg DAILY GUR[facility]INDER Administration Budesonide/Formoterol Fumarate 2 puff 12/19/17 22:00 Symbicort 160/4.5mcg - IH BID GURVINDER Furosemide 40 mg 12/19/17 10:00 12/19/17 10:00 Lasix - PO 40 mg DAILY GUR[facility]INDER Administration Levothyroxine Sodium 50 mcg 12/19/17 07:00 12/19/17 10:00 Synthroid - PO 50 mcg DAILY@0700 GURVINDER Administration Metoprolol Tartrate 25 mg 12/19/17 10:00 12/19/17 13:21 Lopressor - PO 25 mg BID GUR[facility]INDER Administration Nitroglycerin 0.4 mg 12/19/17 17:53 Nitrostat - SL Q5M PRN FOR CHEST PAIN Non-Formulary Medication 7.5 mg 12/20/17 10:00 Meloxicam [Meloxicam] PO DAILY [facility] Topiramate 25 mg 12/19/17 10:00 12/19/17 13:21 Topamax - PO 25 mg BID [facility] Administration Warfarin Sodium 2 mg 12/19/17 18:00 Coumadin - PO DAILY@1800 [facility] ASSESSMENT/PLAN: 72yo woman with PMH of Afib on Coumadin, unprovoked PE in 2013, CAD, COPD, HTN, HLD, epilepsy, hypothyroidism, Breast ca (on Arimidex), and non-malignant lung mass (s/p wedge biopsy and nagivational bronchoscopy) who presents with chest pain for the past day #chest pain, r/o ACS -Cardiology Consulted (Dr. Mcgowan, OP cardiology) -telemetry monitoring -trop neg x 2 - EKG no STEMI -2D ECHO: conduction abnormality, borderline reduced LV function #HTN -resume lasix #COPD -baseline sob -c/w home Ventolin -O2 therapy to maintain SpO2 >90% #Afib on Coumadin, rate control -Daily INR check -c/w Warfarin #hypothyroidism c/w home synthroid after confirming dose #epilepsy c/w home Topiramate #FEN PO intake Lytes wnl Na controlled diet #PPX DVT on Coumadin #DISPO: obs tele FULL code Júnior Plunkett MD PGY-1 IM Visit type - Emergency Visit Emergency Visit: Yes ED Registration Date: 12/19/17 Care time: The patient presented to the Emergency Department on the above date and was hospitalized for further evaluation of their emergent condition. - New Patient This patient is new to me today: Yes Date on this admission: 12/19/17 - Critical Care Critical Care patient: No - Discharge Referral Referred to [facility] No <Zhanna Chowdhury - Last Filed: 12/19/17 19:01> Physical Exam: Patient seen and examined, Agree with above findings and plan of care with denies any chest pain or dyspnea currently. Similar prior episodes, but current lasted longer, now resolved. OE Vs noted Chest: good air entry, no rales or wheezing abdomen: soft, obese, NT extremities: no edema Labs reviewed Imaging noted. Plan Retrieve outpatient cardiac info D/c in 24 hours if no concerns.
[2017-12-19] MEDS ORDERED: WARFARIN NA 1 MG TABLET (FP) ONE (18:47)
[2017-12-19 20:41] VITALS: TEMP 98.5
[2017-12-19] MEDS ORDERED: BUDESONIDE/FORMETEROL FUMARATE 160/4.5 mcg INHALER IH SCH (22:00)
[2017-12-19] MEDS ORDERED: METOPROLOL TARTRATE 25 MG TABLET (FP) ONE (22:30)
[2017-12-19] MEDS ORDERED: TOPIRAMATE 25 MG TABLET (FP) ONE (22:31)
[2017-12-20] MEDS: LEVOTHYROXINE NA 50 MCG TABLET (FP) PO SCH (06:21)
[2017-12-20 06:34] LABS: URINE APPEARANCE CLEAR; URINE BILIRUBIN NEGATIVE (<2.0 mg/dL); URINE COLOR YELLOW; URINE GLUCOSE (UA) NEGATIVE (NEGATIVE); URINE KETONE NEGATIVE (NEGATIVE); URINE NITRITE NEGATIVE (NEGATIVE); URINE PROTEIN NEGATIVE (NEGATIVE); URINE UROBILINOGEN NEGATIVE mg/dL (0.2-1.0)
[2017-12-20 06:58] LABS: URINE LEUK ESTERASE 2+ (NEGATIVE)
[2017-12-20 07:11] LABS: BASO % 0.9 % (0-2.0); EOS % 4.1 % (0-4.5); HEMATOCRIT 35.1 % (32.4-45.2); HEMOGLOBIN 11.5 GM/dL (10.7-15.3); LYMPH % 44.2 % (8-40); MCH 29.9 pg (25.7-33.7); MCHC 32.6 g/dl (32.0-36.0); MEAN CELL VOLUME 91.6 fl (80-96); MEAN PLT VOLUME 8.3 fl (7.5-11.1); MONO % 4.8 % (3.8-10.2); PLATELET COUNT 256 K/MM3 (134-434); RBC 3.84 M/mm3 (3.60-5.2); RDW 14.5 % (11.6-15.6); WHITE BLOOD COUNT 8.3 K/mm3 (4.0-10.0)
[2017-12-20 07:35] LABS: INR 2.41 (0.82-1.09); PROTHROMBIN TIME (PATIENT) 27.2 SEC (9.7-13.0)
[2017-12-20 07:45] LABS: ANION GAP 8 (8-16); BLOOD UREA NITROGEN 21 mg/dL (7-18); CALCIUM 8.7 mg/dL (8.5-10.1); CHLORIDE 109 mmol/L (98-107); CO2 27 mmol/L (21-32); GLUCOSE,RANDOM 86 mg/dL (74-106); POTASSIUM 3.5 mmol/L (3.5-5.1); SODIUM 144 mmol/L (136-145)
--- NOTE | 2017-12-20 07:47 | PN ---
Physical Exam: SUBJECTIVE: Patient seen and examined at bedside. No acute events. Pt still has baseline SOB and states her CP is still present. Very mild. OBJECTIVE: Vital Signs Period Temp Pulse Resp BP Sys/Landis Pulse Ox Last 24 Hr 98.2 F-98.5 F 61-89 16-19 107-179/45-120 97-100 GENERAL: The patient is awake, alert, and fully oriented, in no acute distress. HEAD: Normal with no signs of trauma. Alopecia EYES: sclera anicteric, conjunctiva clear. No ptosis. ENT: oropharynx clear without exudates, moist mucous membranes. NECK: Trachea midline, full range of motion, supple. LUNGS: mild crackles LLB HEART: Regular rate and rhythm, S1, S2 without murmur, rub or gallop. ABDOMEN: Soft, nontender, nondistended, normoactive bowel sounds, no guarding, no rebound, no hepatosplenomegaly, no masses. EXTREMITIES: 2+ pulses, warm, well-perfused, no edema. NEUROLOGICAL: Cranial nerves II through XII grossly intact. Normal speech, gait not observed. PSYCH: Normal mood, normal affect. SKIN: seborrheic dermatosis. Warm, dry, normal turgor Laboratory Results - last 24 hr 12/19/17 12/19/17 12/19/17 08:46 08:46 11:30 WBC 9.8 RBC 3.67 Hgb 10.9 Hct 33.0 MCV 90.0 MCH 29.7 MCHC 33.1 RDW 14.5 Plt Count 302 MPV 8.1 PT with INR 29.80 H INR 2.64 H Sodium 143 Potassium 3.6 Chloride 110 H Carbon Dioxide 25 Anion Gap 8 BUN 17 Creatinine 0.9 Random Glucose 92 Calcium 8.6 Troponin I Urine Color Urine Appearance Urine pH Ur Specific Sebastian Urine Protein Urine Glucose (UA) Urine Ketones Urine Blood Urine Nitrite Urine Bilirubin Urine Urobilinogen Ur Leukocyte Esterase 12/19/17 12/20/17 16:00 06:00 WBC RBC Hgb Hct MCV MCH MCHC RDW Plt Count MPV PT with INR INR Sodium Potassium Chloride Carbon Dioxide Anion Gap BUN Creatinine Random Glucose Calcium Troponin I < 0.02 Urine Color Yellow Urine Appearance Clear Urine pH 6.0 D Ur Specific Sebastian 1.017 Urine Protein Negative Urine Glucose (UA) Negative Urine Ketones Negative Urine Blood Negative Urine Nitrite Negative Urine Bilirubin Negative Urine Urobilinogen Negative Ur Leukocyte Esterase 2+ H Active Medications Generic Name Dose Route Start Last Admin Trade Name Freq PRN Reason Stop Dose Admin Albuterol Sulfate 2 puff 12/19/17 03:39 Ventolin Hfa Inhaler - IH Q4H PRN ASTHMA Anastrozole 1 mg 12/20/17 10:00 Arimidex - PO DAILY [facility] Aspirin 81 mg 12/19/17 10:00 12/19/17 10:00 Asa - PO 81 mg DAILY [facility] Administration Atorvastatin Calcium 40 mg 12/19/17 10:00 12/19/17 10:00 Lipitor - PO 40 mg DAILY [facility] Administration Budesonide/Formoterol Fumarate 2 puff 12/19/17 22:00 12/19/17 23:33 Symbicort 160/4.5mcg - IH 2 puff BID [facility]INDER Administration Furosemide 40 mg 12/19/17 10:00 12/19/17 10:00 Lasix - PO 40 mg DAILY [facility]ER Administration Levothyroxine Sodium 50 mcg 12/19/17 07:00 12/20/17 06:21 Synthroid - PO 50 mcg DAILY@0700 [facility]ER Administration Metoprolol Tartrate 25 mg 12/19/17 10:00 12/19/17 22:35 Lopressor - PO 25 mg BID G[facility]INDER Administration Nitroglycerin 0.4 mg 12/19/17 17:53 Nitrostat - SL Q5M PRN FOR CHEST PAIN Non-Formulary Medication 7.5 mg 12/20/17 10:00 Meloxicam [Meloxicam] PO DAILY [facility] Topiramate 25 mg 12/19/17 10:00 12/19/17 22:35 Topamax - PO 25 mg BID [facility]ER Administration Warfarin Sodium 2 mg 12/19/17 18:00 12/19/17 18:49 Coumadin - PO 2 mg DAILY@1800 GUR[facility]INDER Administration ASSESSMENT/PLAN: 72yo woman with PMH of Afib on Coumadin, unprovoked PE in 2012, CAD, COPD, HTN, HLD, epilepsy, hypothyroidism, Breast ca (on Arimidex), and non-malignant lung mass (s/p wedge biopsy and nagivational bronchoscopy) who presents with chest pain for the past day #chest pain, r/o ACS -Cardiology Consulted (Pt's outpt electrophysiology technologist Dr. Mcgowan was called. This physician has moved away and no longer practices here. Dr. Whitman consulted) -telemetry monitoring -trop neg x 2 - EKG no STEMI -2D ECHO: conduction abnormality, borderline reduced LV function #HTN -resume lasix #COPD -baseline sob -c/w home Ventolin -O2 therapy to maintain SpO2 >90% #Afib on Coumadin, rate control -Daily INR check -c/w Warfarin #hypothyroidism c/w home synthroid after confirming dose #epilepsy c/w home Topiramate #FEN PO intake Lytes wnl Na controlled diet #PPX DVT on Coumadin #DISPO: obs tele FULL code Júnior Plunkett MD PGY-1 IM
--- NOTE | 2017-12-20 08:11 | PN ---
Teaching Attending Note Name of Resident: Júnior Plunkett ATTENDING PHYSICIAN STATEMENT I saw and evaluated the patient. I reviewed the resident's note and discussed the case with the resident. I agree with the resident's findings and plan as documented with exceptions below. SUBJECTIVE: Patient seen and examined. OBJECTIVE: Vital Signs Period Temp Pulse Resp BP Sys/Landis Pulse Ox Last 24 Hr 98.2 F-98.5 F 61-89 16-19 107-179/45-120 97-100 Intake & Output 12/17/17 12/18/17 12/19/17 12/20/17 23:59 23:59 23:59 23:59 Weight 194 lb General: Chest: Home Medication List Medication Instructions Recorded Confirmed Type Anastrozole [Arimidex -] 1 mg PO DAILY 12/19/17 12/19/17 History Atorvastatin Ca [Lipitor] 40 mg PO HS 12/19/17 12/19/17 History Budesonide/Formeterol Fumarate 2 inh PO BID 12/19/17 12/19/17 History [SYMBICORT 160/4.5mcg -] Furosemide [Lasix] 40 mg PO DAILY 12/19/17 12/19/17 History Levothyroxine [Synthroid -] 75 mcg PO DAILY 12/19/17 12/19/17 History Meloxicam 7.5 mg PO DAILY 12/19/17 12/19/17 History Metoprolol Tartrate 25 mg PO DAILY 12/19/17 12/19/17 History Nitroglycerin Sublingual 0.4 mg SL PRN PRN 12/19/17 12/19/17 History [Nitrostat -] Topiramate 25 mg PO BID 12/19/17 12/19/17 History Warfarin Na [Coumadin] 2 mg PO DAILY 12/19/17 12/19/17 History Active Medications Generic Name Dose Route Start Last Admin Trade Name Freq PRN Reason Stop Dose Admin Albuterol Sulfate 2 puff 12/19/17 03:39 Ventolin Hfa Inhaler - IH Q4H PRN ASTHMA Anastrozole 1 mg 12/20/17 10:00 Arimidex - PO DAILY [facility] Aspirin 81 mg 12/19/17 10:00 12/19/17 10:00 Asa - PO 81 mg DAILY [facility] Administration Atorvastatin Calcium 40 mg 12/19/17 10:00 12/19/17 10:00 Lipitor - PO 40 mg DAILY [facility]ER Administration Budesonide/Formoterol Fumarate 2 puff 12/19/17 22:00 12/19/17 23:33 Symbicort 160/4.5mcg - IH 2 puff BID [facility]INDER Administration Furosemide 40 mg 12/19/17 10:00 12/19/17 10:00 Lasix - PO 40 mg DAILY [facility]ER Administration Levothyroxine Sodium 50 mcg 12/19/17 07:00 12/20/17 06:21 Synthroid - PO 50 mcg DAILY@0700 G[facility]INDER Administration Metoprolol Tartrate 25 mg 12/19/17 10:00 12/19/17 22:35 Lopressor - PO 25 mg BID [facility]ER Administration Nitroglycerin 0.4 mg 12/19/17 17:53 Nitrostat - SL Q5M PRN FOR CHEST PAIN Non-Formulary Medication 7.5 mg 12/20/17 10:00 Meloxicam [Meloxicam] PO DAILY [facility] Topiramate 25 mg 12/19/17 10:00 12/19/17 22:35 Topamax - PO 25 mg BID [facility]ER Administration Warfarin Sodium 2 mg 12/19/17 18:00 12/19/17 18:49 Coumadin - PO 2 mg DAILY@1800 GUR[facility]INDER Administration Laboratory Results - last 24 hr 12/19/17 12/19/17 12/19/17 08:46 08:46 11:30 WBC 9.8 RBC 3.67 Hgb 10.9 Hct 33.0 MCV 90.0 MCH 29.7 MCHC 33.1 RDW 14.5 Plt Count 302 MPV 8.1 Neutrophils % Lymphocytes % Monocytes % Eosinophils % Basophils % Nucleated RBC % PT with INR 29.80 H INR 2.64 H Sodium 143 Potassium 3.6 Chloride 110 H Carbon Dioxide 25 Anion Gap 8 BUN 17 Creatinine 0.9 Random Glucose 92 Calcium 8.6 Troponin I Urine Color Urine Appearance Urine pH Ur Specific [place] Urine Protein Urine Glucose (UA) Urine Ketones Urine Blood Urine Nitrite Urine Bilirubin Urine Urobilinogen Ur Leukocyte Esterase 12/19/17 12/20/17 12/20/17 16:00 06:00 06:25 WBC 8.3 RBC 3.84 Hgb 11.5 Hct 35.1 MCV 91.6 MCH 29.9 MCHC 32.6 RDW 14.5 Plt Count 256 MPV 8.3 Neutrophils % 46.0 D Lymphocytes % 44.2 H D Monocytes % 4.8 Eosinophils % 4.1 D Basophils % 0.9 Nucleated RBC % 0 PT with INR INR Sodium Potassium Chloride Carbon Dioxide Anion Gap BUN Creatinine Random Glucose Calcium Troponin I < 0.02 Urine Color Yellow Urine Appearance Clear Urine pH 6.0 D Ur Specific [place] 1.017 Urine Protein Negative Urine Glucose (UA) Negative Urine Ketones Negative Urine Blood Negative Urine Nitrite Negative Urine Bilirubin Negative Urine Urobilinogen Negative Ur Leukocyte Esterase 2+ H 12/20/17 06:25 WBC RBC Hgb Hct MCV MCH MCHC RDW Plt Count MPV Neutrophils % Lymphocytes % Monocytes % Eosinophils % Basophils % Nucleated RBC % PT with INR 27.20 H INR 2.41 H Sodium Potassium Chloride Carbon Dioxide Anion Gap BUN Creatinine Random Glucose Calcium Troponin I Urine Color Urine Appearance Urine pH Ur Specific [place] Urine Protein Urine Glucose (UA) Urine Ketones Urine Blood Urine Nitrite Urine Bilirubin Urine Urobilinogen Ur Leukocyte Esterase 2D echo results reviewed ASSESSMENT AND PLAN: 72 yof with Afib on Coumadin, unprovoked PE in 2012, CAD, COPD, HTN, HLD, epilepsy, hypothyroidism, Breast ca (on Arimidex), and non-malignant lung mass ( s/p wedge biopsy and nagivational bronchoscopy) with transient chest pain/ dyspnea resolved now. -Atypical chest pain -Dyspnea, acute on chronic, transient, resovled now -H/o PE on coumadin -COPD/non malignant lungmass -Breast Ca on arimidex -HTN -HLD -Epilepsy -Hypothyroidism Plan: ACS ruled out. 2D echo noted. No concerns inhouse. Oxygenating well. outpatient cardiology/pulmonary follow up D.c home with outpatient follow up.
[2017-12-20 08:23] LABS: EPI CELLS RARE /HPF (FEW); URINE MUCUS FEW
[2017-12-20 08:24] VITALS: BP 156/61; PULSE 64
--- NOTE | 2017-12-20 08:49 | DS ---
Physical Exam: SUBJECTIVE: Patient seen and examined at bedside. No acute events. Pt still has baseline SOB and states her CP is still present. Very mild. OBJECTIVE: Vital Signs Period Temp Pulse Resp BP Sys/Landis Pulse Ox Last 24 Hr 98.2 F-98.5 F 61-89 14-19 107-179/46-120 97-100 PHYSICAL EXAM GENERAL: The patient is awake, alert, and fully oriented, in no acute distress. HEAD: Normal with no signs of trauma. Alopecia EYES: sclera anicteric, conjunctiva clear. No ptosis. ENT: oropharynx clear without exudates, moist mucous membranes. NECK: Trachea midline, full range of motion, supple. LUNGS: mild crackles LLB HEART: Regular rate and rhythm, S1, S2 without murmur, rub or gallop. ABDOMEN: Soft, nontender, nondistended, normoactive bowel sounds, no guarding, no rebound, no hepatosplenomegaly, no masses. EXTREMITIES: 2+ pulses, warm, well-perfused, no edema. NEUROLOGICAL: Cranial nerves II through XII grossly intact. Normal speech, gait not observed. PSYCH: Normal mood, normal affect. SKIN: seborrheic dermatosis. Warm, dry, normal turgor LABS Laboratory Results - last 24 hr 12/19/17 12/19/17 12/19/17 08:46 08:46 11:30 WBC 9.8 RBC 3.67 Hgb 10.9 Hct 33.0 MCV 90.0 MCH 29.7 MCHC 33.1 RDW 14.5 Plt Count 302 MPV 8.1 Neutrophils % Lymphocytes % Monocytes % Eosinophils % Basophils % Nucleated RBC % PT with INR 29.80 H INR 2.64 H Sodium 143 Potassium 3.6 Chloride 110 H Carbon Dioxide 25 Anion Gap 8 BUN 17 Creatinine 0.9 Random Glucose 92 Calcium 8.6 Troponin I Urine Color Urine Appearance Urine pH Ur Specific Ingram Urine Protein Urine Glucose (UA) Urine Ketones Urine Blood Urine Nitrite Urine Bilirubin Urine Urobilinogen Ur Leukocyte Esterase Urine WBC (Auto) Urine RBC (Auto) Ur Epithelial Cells Urine Mucus 12/19/17 12/20/17 12/20/17 16:00 06:00 06:25 WBC 8.3 RBC 3.84 Hgb 11.5 Hct 35.1 MCV 91.6 MCH 29.9 MCHC 32.6 RDW 14.5 Plt Count 256 MPV 8.3 Neutrophils % 46.0 D Lymphocytes % 44.2 H D Monocytes % 4.8 Eosinophils % 4.1 D Basophils % 0.9 Nucleated RBC % 0 PT with INR INR Sodium Potassium Chloride Carbon Dioxide Anion Gap BUN Creatinine Random Glucose Calcium Troponin I < 0.02 Urine Color Yellow Urine Appearance Clear Urine pH 6.0 D Ur Specific Ingram 1.017 Urine Protein Negative Urine Glucose (UA) Negative Urine Ketones Negative Urine Blood Negative Urine Nitrite Negative Urine Bilirubin Negative Urine Urobilinogen Negative Ur Leukocyte Esterase 2+ H Urine WBC (Auto) 21 Urine RBC (Auto) 1 Ur Epithelial Cells Rare Urine Mucus Few 12/20/17 12/20/17 06:25 06:25 WBC RBC Hgb Hct MCV MCH MCHC RDW Plt Count MPV Neutrophils % Lymphocytes % Monocytes % Eosinophils % Basophils % Nucleated RBC % PT with INR 27.20 H INR 2.41 H Sodium 144 Potassium 3.5 Chloride 109 H Carbon Dioxide 27 Anion Gap 8 BUN 21 H Creatinine 1.0 Random Glucose 86 Calcium 8.7 Troponin I Urine Color Urine Appearance Urine pH Ur Specific Ingram Urine Protein Urine Glucose (UA) Urine Ketones Urine Blood Urine Nitrite Urine Bilirubin Urine Urobilinogen Ur Leukocyte Esterase Urine WBC (Auto) Urine RBC (Auto) Ur Epithelial Cells Urine Mucus HOSPITAL COURSE: Date of Admission:12/19/17 Date of Discharge: 12/20/17 72yo woman with PMH of Afib on Coumadin, unprovoked PE in 2012, CAD, COPD, HTN, HLD, epilepsy, hypothyroidism, Breast ca (on Arimidex), and non-malignant lung mass (s/p wedge biopsy and nagivational bronchoscopy) who presents with chest pain for the past day. Based on the patient's chief complaint and cardiac history, there was concern for ACS. Pt had trop neg x 2, and EKG significant for LBBB and ? old anteroseptal WI, but no acute ST changes. Echo was done and revealed borderline reduced LV function. HTN was treated with home lasix. Pt has COPD and was experiencing baseline sob. She was not hypoxic or tachypnic at any point. She was treated with her home Ventolin Pt was given her home dose of Coumadin for Afib. INR was monitored. Pt was continued on synthroid for hypothyroidism. Pt has epilepsy and was given her home Topiramate. Minutes to complete discharge: 30 Discharge Summary Reason For Visit: CHEST PAIN DYSPNEA Current Active Problems Anticoagulated on Coumadin (Acute) Chest pain (Acute) Dyspnea (Acute) Condition: Good - Instructions Diet, Activity, Other Instructions: You were admitted to the hospital because of chest pain. You did not have a heart attack. You need to make sure you follow up closely with your Perfect [facility] Machine Operator at [address] [place] [address]. Make sure you follow up with your PCP, Dr. Escobar within a week. You can continue taking your home medications as you were. If you develop new symptoms or if your symptoms recur, return to the emergency department. Referrals: Laly Lewis MD [Primary Care Provider] - 1 Week Disposition: HOME - Home Medications Comprehensive Discharge Medication List: Ambulatory Orders Anastrozole [Arimidex -] 1 mg PO DAILY 12/19/17 Atorvastatin Ca [Lipitor] 40 mg PO HS 12/19/17 Budesonide/Formeterol Fumarate [SYMBICORT 160/4.5mcg -] 2 inh PO BID 12/19/17 Furosemide [Lasix] 40 mg PO DAILY 12/19/17 Levothyroxine [Synthroid -] 75 mcg PO DAILY 12/19/17 Meloxicam 7.5 mg PO DAILY 12/19/17 Metoprolol Tartrate 25 mg PO DAILY 12/19/17 Nitroglycerin Sublingual [Nitrostat -] 0.4 mg SL PRN PRN 12/19/17 Topiramate 25 mg PO BID 12/19/17 Warfarin Na [Coumadin -] 2 mg PO DAILY 12/19/17 Albuterol Sulfate Inhaler - [Ventolin HFA Inhaler -] 2 puff IH Q4H PRN inhaler 12/20/17 Aspirin [ASA -] 81 mg PO DAILY tab.chew 12/20/17 This patient is new to me today: No Emergency Visit: No Critical Care patient: No - Discharge Referral Referred to [facility] No
[2017-12-20] MEDS ORDERED: ASPIRIN 81 MG CHEWABLE TABLETS ONE (09:35)
[2017-12-20] MEDS ORDERED: ATORVASTATIN CA 40 MG TABLET (FP) ONE (09:36)
[2017-12-20] MEDS ORDERED: FUROSEMIDE 40 MG TABLET (FP) ONE (09:36)
[2017-12-20] MEDS: FUROSEMIDE 40 MG TABLET (FP) PO SCH (09:39)
[2017-12-20] MEDS: ASPIRIN 81 MG CHEWABLE TABLETS PO SCH (09:39)
[2017-12-20] MEDS: ATORVASTATIN CA 40 MG TABLET (FP) PO SCH (09:39)
[2017-12-20] MEDS ORDERED: TOPIRAMATE 25 MG TABLET (FP) ONE (09:40)
[2017-12-20] MEDS ORDERED: METOPROLOL TARTRATE 25 MG TABLET (FP) ONE (09:40)
[2017-12-20] MEDS: METOPROLOL TARTRATE 25 MG TABLET (FP) PO SCH (09:43)
[2017-12-20] MEDS: TOPIRAMATE 25 MG TABLET (FP) PO SCH (09:43)
[2017-12-20] MEDS ORDERED: PATIENT'S OWN MEDICATION (NON-FORMULARY) (Meloxicam [Meloxicam] 7.5 MG) PO SCH (10:00)
[2017-12-20] MEDS ORDERED: ANASTROZOLE 1 MG TABLET PO SCH (10:00)
== END 2017-12-20 11:00 | disposition home or self-care (01) ==
LOC: JER 23:39 → JERBED 12-19 02:18
PROVIDERS: ADMIT Internal Medicine; ATTEND Hospitalist
PROC: 3E013GC Introduction of Other Therapeutic Substance into Subcutaneous Tissue, Percutaneous Approach (ICD-10-PCS; principal; 2017-12-19)
PROC: 3E0F7GC Introduction of Other Therapeutic Substance into Respiratory Tract, Via Natural or Artificial Opening (ICD-10-PCS; 2017-12-19)
DX: R07.89 Other chest pain (principal); R06.02 Shortness of breath; I10 Essential (primary) hypertension; I25.10 Atherosclerotic heart disease of native coronary artery without angina pectoris; I48.0 Paroxysmal atrial fibrillation; I49.9 Cardiac arrhythmia, unspecified; I44.7 Left bundle-branch block, unspecified; E78.5 Hyperlipidemia, unspecified; E03.9 Hypothyroidism, unspecified; G40.909 Epilepsy, unspecified, not intractable, without status epilepticus; J44.9 Chronic obstructive pulmonary disease, unspecified; D14.30 Benign neoplasm of unspecified bronchus and lung; Z79.01 Long term (current) use of anticoagulants; Z79.82 Long term (current) use of aspirin; Z87.891 Personal history of nicotine dependence; Z85.3 Personal history of malignant neoplasm of breast; Z86.711 Personal history of pulmonary embolism
CPT/HCPCS: 36415; 71045-TC-FY; 80048; 80053; 81003; 81015; 83735; 83880; 84484; 85025; 85027; 85610; 85730; 93005; 93010; 93306-TC; 94640; 96372; 99285-25; G0378; J1644

== ENCOUNTER 2020-01-19 06:07 | Inpatient (IN) | payer OTHER ==
[2020-01-16 13:34] VITALS: BMI 34.0
[2020-01-19] MEDS ORDERED: TRANEXAMIC ACID 1000 MG/10 ML VIAL IVPUSH ONE (06:49)
[2020-01-19] MEDS ORDERED: CEFAZOLIN 2 GM/D5W 2 GM/50 ML ML IVPB ONE (06:49)
[2020-01-19] MEDS ORDERED: CELECOXIB 200 MG CAPSULE PO ONE ×2 (06:49→07:30)
[2020-01-19] MEDS ORDERED: PROPOFOL 20 ML ONE ×4 (07:20→12:00)
[2020-01-19] MEDS ORDERED: TRANEXAMIC ACID 1000 MG/10 ML VIAL ONE ×2 (07:20→07:30)
[2020-01-19] MEDS ORDERED: SUCCINYLCHOLINE CHLORIDE 200 MG/10 ML SYRINGE ONE (07:21)
[2020-01-19] MEDS ORDERED: MIDAZOLAM HCL 2 MG/2 ML SINGLE DOSE VIAL ONE ×2 (07:21→07:28)
[2020-01-19] MEDS ORDERED: ROPIVACAINE HCL 0.5% 30ML VIAL ONE (07:34)
[2020-01-19] MEDS ORDERED: BUPIVACAINE HCL/PF 0.25% (2.5MG/ML) 10 ML VIAL ONE (07:34)
[2020-01-19] MEDS ORDERED: BUPIVACAINE LIPOSOME/PF (EXPAREL) 266 MG/20 ML VIAL ONE (07:34)
--- NOTE | 2020-01-19 08:08 | HP ---
History & Physical Update - History History: No Change - Physical Physical: No Change - Assessment Assessment: No Change - Plan Plan: No Change (Full H&P in chart from 01/05/[address] Duran)
[2020-01-19 08:39] LABS: INR 1.14 (0.83-1.09); PROTHROMBIN TIME (PATIENT) 13.5 SEC (9.7-13.0)
[2020-01-19] MEDS ORDERED: ceFAZolin 2 GRAM PREMIX BAG IVPB ONE ×2 (08:50→08:55)
[2020-01-19] MEDS ORDERED: EPHEDRINE SULFATE/0.9% NACL/PF 50 MG/10 ML SYRINGE NR ONE (09:13)
[2020-01-19] MEDS ORDERED: ROCURONIUM BROMIDE 50 MG/5 ML SYRINGE ONE (11:11)
[2020-01-19] MEDS ORDERED: ONDANSETRON 4 MG/2 ML VIAL IVPUSH PRN ×2 (11:17→11:23)
[2020-01-19] MEDS ORDERED: MAGNESIUM HYDROX 2400MG/30ML ORAL SUSPENSION 30 ML CUP PO PRN (11:23)
[2020-01-19] MEDS ORDERED: MAG HYDROX/AL HYDROX/SIMETH 30 ML UNIT-DOSE CUP PO PRN (11:23)
[2020-01-19] MEDS ORDERED: NITROGLYCERIN SUBLINGUAL 1/150 0.4 MG TAB SL PRN (11:25)
[2020-01-19] MEDS ORDERED: ALBUTEROL SO4 HFA INHALER IH PRN (11:25)
[2020-01-19] MEDS ORDERED: oxyCODONE HCL 5 MG TABLET PO PRN (11:28)
[2020-01-19] MEDS ORDERED: LACTATED RINGERS SOLUTION 1,000 ML IV SCH (11:30)
--- NOTE | 2020-01-19 12:12 | OP ---
Operative Note - Note: Operative Date: 01/19/20 Pre-Operative Diagnosis: Right knee osteoarthritis Operation: Right knee total arthroplasty Post-Operative Diagnosis: Same as Pre-op Surgeon: Abhijit Ingram I Heater Operator Helper: Darell Harding Anesthesiologist/LADLE PATCHER: Pablo Almazan Anesthesia: Spinal Estimated Blood Loss (mls): 100 Operative Report Dictated: Yes
--- NOTE | 2020-01-19 12:13 | SURG ---
Surgery Retort Forker Note Retort Forker: Darell Harding PA-C Date of Service: 01/19/20 Diagnosis: Right knee osteoarthritis Procedure: Right knee total arthroplasty I was present for the entirety of the operative procedure. For further detail, please refer to operative report. Visit type - Case Type Case Type: Scheduled - Emergency Emergency Visit: No - New patient This patient is new to me today: Yes Date on this admission: 01/19/20 - Critical Care Critical Care patient: No
--- NOTE | 2020-01-19 12:48 | HP ---
CHIEF COMPLAINT: Right knee arthroplasty HISTORY OF PRESENT ILLNESS: 74 year old female with known history of Hypothyroidism, seizure disorder, hypertension, HLD, atrial fibrillation on coumadin (currently on hold for surgery), CAD, COPD, hypertension, hyperlipidemia, epilepsy, Breast CA (on Arimidex), lung mass sp wedge biopsy, bronchoscopy (non-malignant) who is being admitted after right knee arthroplasty. Recent Travel: none PAST MEDICAL HISTORY: as above PAST SURGICAL HISTORY: as above Social History: Smoking: denies Alcohol: denies Drugs: denies Allergies No Known Drug Allergies Allergy (Verified 01/16/20 13:34) HOME MEDICATIONS: Home Medications Medication Instructions Recorded Anastrozole [Arimidex -] 1 mg PO DAILY 12/19/17 Atorvastatin Ca [Lipitor] 40 mg PO DAILY 12/19/17 Budesonide/Formeterol Fumarate 2 inh PO BID 12/19/17 [SYMBICORT 160/4.5mcg -] Furosemide [Lasix] 40 mg PO DAILY 12/19/17 Levothyroxine [Synthroid -] 75 mcg PO DAILY 12/19/17 Metoprolol Tartrate 25 mg PO DAILY 12/19/17 Nitroglycerin Sublingual 0.4 mg SL PRN PRN 12/19/17 [Nitrostat -] Topiramate 25 mg PO BID 12/19/17 Warfarin Na [Coumadin -] 2 mg PO DAILY 12/19/17 Albuterol Sulfate Inhaler - 2 puff IH Q4H PRN inhaler 12/20/17 [Ventolin HFA Inhaler -] Aspirin [ASA -] 81 mg PO DAILY tab.chew 12/20/17 REVIEW OF SYSTEMS CONSTITUTIONAL: Absent: fever, chills, diaphoresis, generalized weakness, malaise, loss of appetite, weight change HEENT: Absent: rhinorrhea, nasal congestion, throat pain, throat swelling, difficulty swallowing, mouth swelling, ear pain, eye pain, visual changes CARDIOVASCULAR: Absent: chest pain, syncope, palpitations, lightheadedness, peripheral edema RESPIRATORY: Absent: cough, shortness of breath, dyspnea with exertion, orthopnea, wheezing, stridor, hemoptysis GASTROINTESTINAL: Absent: abdominal pain, abdominal distension, nausea, vomiting, diarrhea, constipation, melena, hematochezia GENITOURINARY: Absent: dysuria, frequency, urgency, hesitancy, hematuria, flank pain, genital pain MUSCULOSKELETAL: Absent: myalgia, arthralgia, joint swelling, back pain, neck pain SKIN: Absent: rash, itching, pallor HEMATOLOGIC/IMMUNOLOGIC: Absent: easy bleeding, easy bruising, lymphadenopathy, frequent infections ENDOCRINE: Absent: unexplained weight gain, unexplained weight loss, heat intolerance, cold intolerance NEUROLOGIC: Absent: headache, focal weakness or paresthesias, dizziness, unsteady gait, seizure, mental status changes, bladder or bowel incontinence PSYCHIATRIC: Absent: anxiety, depression, suicidal or homicidal ideation, hallucinations. PHYSICAL EXAMINATION Vital Signs - 24 hr 01/19/20 01/19/20 01/19/20 06:55 06:56 11:12 Temperature 98.4 F 98.2 F Pulse Rate 74 70 Respiratory 20 16 Rate Blood Pressure 143/77 112/76 O2 Sat by Pulse 98 100 Oximetry (%) 01/19/20 01/19/20 01/19/20 11:15 11:30 11:45 Temperature Pulse Rate 65 74 52 L Respiratory 18 12 12 Rate Blood Pressure 120/60 133/55 L 138/56 L O2 Sat by Pulse 96 98 99 Oximetry (%) 01/19/20 12:00 Temperature Pulse Rate 60 Respiratory 14 Rate Blood Pressure 126/58 L O2 Sat by Pulse 100 Oximetry (%) GENERAL: Awake, alert, and fully oriented, in no acute distress. HEAD: Normal with no signs of trauma. EYES: Pupils equal, round and reactive to light, extraocular movements intact, sclera anicteric, conjunctiva clear. No lid lag. EARS, NOSE, THROAT: Ears normal, nares patent, oropharynx clear without exudates. Moist mucous membranes. NECK: Normal range of motion, supple without lymphadenopathy, JVD, or masses. LUNGS: Breath sounds equal, clear to auscultation bilaterally. No wheezes, and no crackles. No accessory muscle use. HEART: Regular rate and rhythm, normal S1 and S2 without murmur, rub or gallop. ABDOMEN: Soft, nontender, not distended, normoactive bowel sounds, no guarding, no rebound, no masses. No hepatomegaly or splenomegaly. MUSCULOSKELETAL: Normal range of motion at all joints. No bony deformities or tenderness. No CVA tenderness. UPPER EXTREMITIES: 2+ pulses, warm, well-perfused. No cyanosis. No clubbing. No peripheral edema. LOWER EXTREMITIES: 2+ pulses, warm, well-perfused. Right knee is wrapped in KIM bandage/ surgical dressing. No calf tenderness. No peripheral edema. NEUROLOGICAL: Cranial nerves II-XII intact. Normal speech. Normal gait. PSYCHIATRIC: Cooperative. Good eye contact. Appropriate mood and affect. SKIN: Warm, dry, normal turgor, no rashes or lesions noted, normal capillary refill. Laboratory Results - last 24 hr 01/19/20 01/19/20 06:18 08:15 PT with INR 13.50 H INR 1.14 H Blood Type A POSITIVE Antibody Screen Negative ASSESSMENT/PLAN: 1. sp right knee arthroplasty - pain meds prn 2. Atrial fib - coumadin on hold today - restart at lower dose tomorrow and then adjust up further as tolerated (to regular dose of 2/3 mg) - rate is controlled 3. cont topiramate 25 mg for seizure disorder 4. SCDs and coumadin for DVT prophylaxis Visit type - Emergency Visit Emergency Visit: Yes ED Registration Date: 01/19/20 Care time: The patient presented to the Emergency Department on the above date and was hospitalized for further evaluation of their emergent condition. - New Patient This patient is new to me today: Yes Date on this admission: 01/20/20 - Critical Care Critical Care patient: No
[2020-01-19] MEDS: LACTATED RINGERS SOLUTION 1,000 ML IV SCH ×2 (14:00→14:37)
[2020-01-19] MEDS: MORPHINE SULFATE 2 MG/ML VIAL IVPUSH PRN ×2 (16:42→22:56)
[2020-01-19 17:09] LABS: INR 1.08 (0.83-1.09); PROTHROMBIN TIME (PATIENT) 12.8 SEC (9.7-13.0)
[2020-01-19] MEDS ORDERED: PT OWN MED DRAWER 7, Y5N ONE (19:53)
[2020-01-19] MEDS: SENNOSIDES/DOCUSATE COMBO (SENNA PLUS) TABLET (UD) PO SCH (21:09)
[2020-01-19] MEDS: TOPIRAMATE 25 MG TABLET PO SCH (21:09)
[2020-01-19] MEDS: SULFAMETHOXAZOLE/TRIMETHOPRIM 800MG/160MG D.S. TABLET PO SCH (21:10)
[2020-01-19] MEDS: BUDESONIDE/FORMETEROL FUMARATE 160/4.5 mcg INHALER IH SCH (21:10)
[2020-01-20] MEDS: LACTATED RINGERS SOLUTION 1,000 ML IV SCH ×2 (02:26→21:31)
[2020-01-20] MEDS: LEVOTHYROXINE NA 75 MCG TABLET (FP) PO SCH (06:06)
[2020-01-20] MEDS: MORPHINE SULFATE 2 MG/ML VIAL IVPUSH PRN (06:09)
[2020-01-20 08:42] LABS: HEMATOCRIT 35.1 % (32.4-45.2); HEMOGLOBIN 11.4 GM/dL (10.7-15.3); MCH 30.5 pg (25.7-33.7); MCHC 32.6 g/dl (32.0-36.0); MEAN CELL VOLUME 93.7 fl (80-96); MEAN PLT VOLUME 8.5 fl (7.5-11.1); PLATELET COUNT 249 K/MM3 (134-434); RBC 3.74 M/mm3 (3.60-5.2); RDW 14.5 % (11.6-15.6); WHITE BLOOD COUNT 12.9 K/mm3 (4.0-10.0)
[2020-01-20 09:08] LABS: BLOOD UREA NITROGEN 13.2 mg/dL (7-18); CALCIUM 9.1 mg/dL (8.5-10.1); CREATININE 0.9 mg/dL (0.55-1.3)
--- NOTE | 2020-01-20 09:10 | PN ---
Progress Note (short form) - Note Progress Note: POD 1, s/p R TKR Pt seen and examined. Reports she is feeling well. Has some discomfort in her knee, improved with pain meds. Tolerating PO. Denies cp/sob, n/v/d. Vital Signs Temp 97.9 F 01/20/20 05:56 Pulse 90 01/20/20 05:56 Resp 18 01/20/20 05:56 BP 158/78 01/20/20 05:56 Pulse Ox 98 01/19/20 21:00 Intake & Output 01/19/20 01/19/20 01/20/20 11:59 23:59 11:59 Intake Total 1500 1085 1140 Output Total 100 400 Balance 3749 833 0495 Intake: IV 1500 225 900 Lactated Ringers Solution 225 900 1,000 ml @ 75 mls/hr IV ASDIR GURVINDER Rx#:[id number] Oral 860 240 Output: Urine 400 Void 400 Estimated Blood Loss 100 Other: Voiding Method Bedpan # Unmeasured Voids Void 3 Bowel Movement No No CBC, BMP 01/20/20 06:35 Gen: awake, alert, nad Resp: unlabored on ra Abdo: soft, nt/nd Ext: RLE with dressing c/d/i, calf edematous and slightly ttp, compartments soft, thigh soft/nt, trace edema in foot. 4/5 plantarflexion, 3/5dorsiflexion, 5/5 EHL, 3/5 FHL. Palpable dp/pt, foot warm A/P: 74 y/o F w/ PMHx Hypothyroidism, seizure disorder, hypertension, HLD, atrial fibrillation on coumadin, CAD, COPD, hyperlipidemia, epilepsy, Breast CA (on Arimidex), lung mass sp wedge biopsy, bronchoscopy (non-malignant) POD 1, s/p R TKR. -Am labs pending -Pain control -CPM as ordered -Continue Coumadin, monitor INR *Can resume presurgical anticoagulation as of tomorrow, 01/20 -Elevate lower ext while at rest -Keep dressing c/d/i -PT -continue Bactrim BID -Bowel regimen d/w attending Dr Ingram
[2020-01-20] MEDS: oxyCODONE HCL 5 MG TABLET PO PRN (09:12)
[2020-01-20] MEDS: TOPIRAMATE 25 MG TABLET PO SCH ×2 (09:13→21:29)
[2020-01-20] MEDS: MULTIVITAMINS (DAILY MVI) TABLET (FP) PO SCH (09:13)
[2020-01-20] MEDS: SULFAMETHOXAZOLE/TRIMETHOPRIM 800MG/160MG D.S. TABLET PO SCH ×2 (09:13→21:29)
[2020-01-20] MEDS: PANTOPRAZOLE 40 MG TABLET PO SCH (09:13)
[2020-01-20] MEDS: ASPIRIN 81 MG CHEWABLE TABLETS PO SCH ×2 (09:13→21:29)
[2020-01-20] MEDS: METOPROLOL TARTRATE 25 MG TABLET (FP) PO SCH (09:13)
[2020-01-20] MEDS: SENNOSIDES/DOCUSATE COMBO (SENNA PLUS) TABLET (UD) PO SCH ×2 (09:13→21:29)
[2020-01-20] MEDS: ATORVASTATIN CA 40 MG TABLET (FP) PO SCH (09:13)
[2020-01-20] MEDS: FUROSEMIDE 40 MG TABLET (FP) PO SCH (09:13)
[2020-01-20] MEDS: BUDESONIDE/FORMETEROL FUMARATE 160/4.5 mcg INHALER IH SCH ×2 (09:14→21:30)
[2020-01-20] MEDS: ANASTROZOLE 1 MG TABLET PO SCH (09:16)
--- NOTE | 2020-01-20 11:00 | PN ---
<Júnior Plunkett - Last Filed: 01/20/20 10:51> Physical Exam: SUBJECTIVE: Patient seen and examined at bedside. Feels ok. Passing gas, no BM OBJECTIVE: Vital Signs Period Temp Pulse Resp BP Sys/Landis Pulse Ox Last 24 Hr 97.5 F-98.6 F 50-98 11-20 102-158/50-91 95-100 Gen: AAOx3, NAD HEENT: NCAT, EOMI Neck: supple, no jvd Cardio: rrr, norm s1s2, no mrg Pulm: cta b/l Abd: soft, nontender Ext: R knee with brace and wound dressing cdi. Extremity warm with 2+ dp Laboratory Results - last 24 hr 01/19/20 01/20/20 01/20/20 16:45 06:35 06:35 WBC 12.9 H RBC 3.74 Hgb 11.4 Hct 35.1 MCV 93.7 MCH 30.5 MCHC 32.6 RDW 14.5 Plt Count 249 D MPV 8.5 PT with INR 12.80 INR 1.08 Sodium 137 Potassium 4.0 Chloride 105 Carbon Dioxide 26 Anion Gap 6 L BUN 13.2 Creatinine 0.9 Est GFR (CKD-EPI)AfAm 73.00 Est GFR (CKD-EPI)NonAf 62.99 Random Glucose 127 H Calcium 9.1 Active Medications Generic Name Dose Route Start Last Admin Trade Name Freq PRN Reason Stop Dose Admin Al Hydroxide/Mg Hydroxide 30 ml 01/19/20 11:23 Mylanta Oral Suspension - PO Q4H PRN DYSPEPSIA Albuterol Sulfate 2 puff 01/19/20 11:25 Ventolin Hfa Inhaler - IH Q4H PRN ASTHMA Anastrozole 1 mg 01/20/20 10:00 01/20/20 09:16 Arimidex - PO 1 mg DAILY GURVINDER Administration Aspirin 81 mg 01/20/20 10:00 01/20/20 09:13 Asa - PO 81 mg BID GURVINDER Administration Atorvastatin Calcium 40 mg 01/20/20 10:00 01/20/20 09:13 Lipitor - PO 40 mg DAILY GURVINDER Administration Budesonide/Formoterol Fumarate 2 puff 01/19/20 22:00 01/20/20 09:14 Symbicort 160/4.5mcg - IH 2 puff BID GURVINDER Administration Furosemide 40 mg 01/20/20 10:00 01/20/20 09:13 Lasix - PO 40 mg DAILY GURVINDER Administration Lactated Ringer's 1,000 mls @ 75 mls/hr 01/19/20 11:30 01/20/20 02:26 Lactated Ringers Solution IV 75 mls/hr ASDIR GURVINDER Administration Levothyroxine Sodium 75 mcg 01/20/20 07:00 01/20/20 06:06 Synthroid - PO 75 mcg DAILY@0700 GURVINDER Administration Magnesium Hydroxide 30 ml 01/19/20 11:23 Milk Of Magnesia - PO PRN PRN CONSTIPATION Metoprolol Tartrate 25 mg 01/20/20 10:00 01/20/20 09:13 Lopressor - PO 25 mg DAILY GURVINDER Administration Morphine Sulfate 2 mg 01/19/20 11:28 01/20/20 06:09 Morphine Sulfate IVPUSH 2 mg Q6H PRN Administration PAIN LEVEL 7 - 10 Multivitamins/Minerals/Vitamin C 1 tab 01/20/20 10:00 01/20/20 09:13 Tab-A-Vit - PO 1 tab DAILY GURVINDER Administration Nitroglycerin 0.4 mg 01/19/20 11:25 Nitrostat - SL PRN PRN PAIN Ondansetron HCl 4 mg 01/19/20 11:17 Zofran Injection IVPUSH Q6H PRN NAUSEA AND/OR VOMITING Ondansetron HCl 4 mg 01/19/20 11:23 Zofran Injection IVPUSH Q6H PRN NAUSEA Oxycodone HCl 5 mg 01/19/20 11:28 Roxicodone - PO Q4H PRN PAIN LEVEL 1-5 Oxycodone HCl 10 mg 01/19/20 11:28 01/20/20 09:12 Roxicodone - PO 10 mg Q4H PRN Administration PAIN LEVEL 6-10 Pantoprazole Sodium 40 mg 01/20/20 10:00 01/20/20 09:13 Protonix - PO 40 mg DAILY GURVINDER Administration Senna/Docusate Sodium 2 tablet 01/19/20 22:00 01/20/20 09:13 Pericolace - PO 2 tablet BID GURVINDER Administration Topiramate 25 mg 01/19/20 22:00 01/20/20 09:13 Topamax - PO 25 mg BID GURVINDER Administration Trimethoprim/Sulfamethoxazole 1 each 01/19/20 22:00 01/20/20 09:13 Bactrim Ds - PO 1 each BID GURVINDER Administration Warfarin Sodium 1 mg 01/20/20 18:00 Coumadin - PO 01/20/20 18:01 NOW ONE ASSESSMENT/PLAN: 74 year old female with known history of Hypothyroidism, seizure disorder, hypertension, HLD, atrial fibrillation on coumadin (currently on hold for surgery), CAD, COPD, Breast CA (on Arimidex), lung mass sp wedge biopsy, bronchoscopy (non-malignant) who is being admitted after right knee arthroplasty. #s/p right knee arthroplasty (01/19/2020) - pain meds prn -f/u surg recs -c/w bactrim -PT -morphine, oxycodone #Atrial fib - restart coumadin today per recs. Home dose 2mg - rate is controlled -c/w Lopressor #Seizure disorder -cont topiramate #HTN -BP controlled #HLD -c/w atorvastatin #CAD -c/w ASA, nitro prn #COPD -budesonide/formeterol -albuterol #Breast CA -c/w Anastrozole #Hypothyroid -levothyroxine on Lasix, protonix Visit type - Emergency Visit Emergency Visit: No - New Patient This patient is new to me today: Yes Date on this admission: 01/20/20 - Critical Care Critical Care patient: No ATTENDING PHYSICIAN STATEMENT I saw and evaluated the patient. I reviewed the resident's note and discussed the case with the resident. I agree with the resident's findings and plan as documented. SUBJECTIVE: OBJECTIVE: ASSESSMENT AND PLAN: <Tony Rosa - Last Filed: 01/20/20 19:02> Physical Exam: SUBJECTIVE: Patient seen and examined OBJECTIVE: Vital Signs Period Temp Pulse Resp BP Sys/Landis Pulse Ox Last 24 Hr 97.9 F-98.1 F 78-98 18-18 95-158/62-91 95-98 Laboratory Results - last 24 hr 01/20/20 01/20/20 01/20/20 06:35 06:35 13:14 WBC 12.9 H RBC 3.74 Hgb 11.4 Hct 35.1 MCV 93.7 MCH 30.5 MCHC 32.6 RDW 14.5 Plt Count 249 D MPV 8.5 PT with INR 14.30 H INR 1.21 H Sodium 137 Potassium 4.0 Chloride 105 Carbon Dioxide 26 Anion Gap 6 L BUN 13.2 Creatinine 0.9 Est GFR (CKD-EPI)AfAm 73.00 Est GFR (CKD-EPI)NonAf 62.99 Random Glucose 127 H Calcium 9.1 Active Medications Generic Name Dose Route Start Last Admin Trade Name Freq PRN Reason Stop Dose Admin Al Hydroxide/Mg Hydroxide 30 ml 01/19/20 11:23 Mylanta Oral Suspension - PO Q4H PRN DYSPEPSIA Albuterol Sulfate 2 puff 01/19/20 11:25 Ventolin Hfa Inhaler - IH Q4H PRN ASTHMA Anastrozole 1 mg 01/20/20 10:00 01/20/20 09:16 Arimidex - PO 1 mg DAILY GURVINDER Administration Aspirin 81 mg 01/20/20 10:00 01/20/20 09:13 Asa - PO 81 mg BID GURVINDER Administration Atorvastatin Calcium 40 mg 01/20/20 10:00 01/20/20 09:13 Lipitor - PO 40 mg DAILY GURVINDER Administration Budesonide/Formoterol Fumarate 2 puff 01/19/20 22:00 01/20/20 09:14 Symbicort 160/4.5mcg - IH 2 puff BID GURVINDER Administration Furosemide 40 mg 01/20/20 10:00 01/20/20 09:13 Lasix - PO 40 mg DAILY GURVINDER Administration Lactated Ringer's 1,000 mls @ 75 mls/hr 01/19/20 11:30 01/20/20 02:26 Lactated Ringers Solution IV 75 mls/hr ASDIR GURVINDER Administration Levothyroxine Sodium 75 mcg 01/20/20 07:00 01/20/20 06:06 Synthroid - PO 75 mcg DAILY@0700 GURVINDER Administration Magnesium Hydroxide 30 ml 01/19/20 11:23 Milk Of Magnesia - PO PRN PRN CONSTIPATION Metoprolol Tartrate 25 mg 01/20/20 10:00 01/20/20 09:13 Lopressor - PO 25 mg DAILY GURVINDER Administration Morphine Sulfate 2 mg 01/19/20 11:28 01/20/20 06:09 Morphine Sulfate IVPUSH 2 mg Q6H PRN Administration PAIN LEVEL 7 - 10 Multivitamins/Minerals/Vitamin C 1 tab 01/20/20 10:00 01/20/20 09:13 Tab-A-Vit - PO 1 tab DAILY GURVINDER Administration Nitroglycerin 0.4 mg 01/19/20 11:25 Nitrostat - SL PRN PRN PAIN Ondansetron HCl 4 mg 01/19/20 11:17 Zofran Injection IVPUSH Q6H PRN NAUSEA AND/OR VOMITING Ondansetron HCl 4 mg 01/19/20 11:23 Zofran Injection IVPUSH Q6H PRN NAUSEA Oxycodone HCl 5 mg 01/19/20 11:28 Roxicodone - PO Q4H PRN PAIN LEVEL 1-5 Oxycodone HCl 10 mg 01/19/20 11:28 01/20/20 09:12 Roxicodone - PO 10 mg Q4H PRN Administration PAIN LEVEL 6-10 Pantoprazole Sodium 40 mg 01/20/20 10:00 01/20/20 09:13 Protonix - PO 40 mg DAILY GURVINDER Administration Senna/Docusate Sodium 2 tablet 01/19/20 22:00 01/20/20 09:13 Pericolace - PO 2 tablet BID GURVINDER Administration Topiramate 25 mg 01/19/20 22:00 01/20/20 09:13 Topamax - PO 25 mg BID GURVINDER Administration Trimethoprim/Sulfamethoxazole 1 each 01/19/20 22:00 01/20/20 09:13 Bactrim Ds - PO 1 each BID GURVINDER Administration ASSESSMENT/PLAN: 74 year old female with known history of Hypothyroidism, seizure disorder, hyper tension, HLD, atrial fibrillation on coumadin (currently on hold for surgery), CAD, COPD, Breast CA (on Arimidex), lung mass sp wedge biopsy, bronchoscopy (non-malignant) who is being admitted after right knee arthroplasty. #s/p right knee arthroplasty (01/19/2020) - pain meds prn -f/u surg recs -c/w bactrim -PT -morphine, oxycodone #Atrial fib - restart coumadin today per recs. Home dose 2mg - rate is controlled -c/w Lopressor #Seizure disorder -cont topiramate #HTN -BP controlled #HLD -c/w atorvastatin #CAD -c/w ASA, nitro prn #COPD -budesonide/formeterol -albuterol #Breast CA -c/w Anastrozole #Hypothyroid -levothyroxine on Lasix, protonix Note . dr garcia has orderd a ct chest on her in the hospital and I happend to notieced incidently and it has possible lesion metstatic lesion . will call him in the morning to find out further action. ATTENDING PHYSICIAN STATEMENT I saw and evaluated the patient. I reviewed the resident's note and discussed the case with the resident. I agree with the resident's findings and plan as documented. SUBJECTIVE: OBJECTIVE: ASSESSMENT AND PLAN:
--- NOTE | 2020-01-20 11:25 | PN ---
Progress Note (short form) - Note Progress Note: POD #1 s/p RTK under spinal with adductor canal and selective tibial block. Pain controlled with oral Rx, doing well, no complaints.
[2020-01-20 14:03] LABS: INR 1.21 (0.83-1.09); PROTHROMBIN TIME (PATIENT) 14.3 SEC (9.7-13.0)
[2020-01-20] MEDS ORDERED: WARFARIN NA 1 MG TABLET PO ONE (18:00)
[2020-01-21] MEDS: LEVOTHYROXINE NA 75 MCG TABLET (FP) PO SCH (06:33)
[2020-01-21 08:17] LABS: BASO % 0.7 % (0-2.0); EOS % 0.9 % (0-4.5); HEMATOCRIT 32.9 % (32.4-45.2); HEMOGLOBIN 10.6 GM/dL (10.7-15.3); LYMPH % 12.1 % (8-40); MCH 30.4 pg (25.7-33.7); MCHC 32.3 g/dl (32.0-36.0); MEAN CELL VOLUME 94.1 fl (80-96); MEAN PLT VOLUME 8.4 fl (7.5-11.1); MONO % 8.5 % (3.8-10.2); NEUT % 77.8 % (42.8-82.8); PLATELET COUNT 225 K/MM3 (134-434); RDW 14.2 % (11.6-15.6); WHITE BLOOD COUNT 13.2 K/mm3 (4.0-10.0)
[2020-01-21 08:32] LABS: BLOOD UREA NITROGEN 14.1 mg/dL (7-18); CALCIUM 8.5 mg/dL (8.5-10.1); CREATININE 1.2 mg/dL (0.55-1.3); POTASSIUM 3.4 mmol/L (3.5-5.1)
[2020-01-21 08:34] LABS: INR 1.4 (0.83-1.09); PROTHROMBIN TIME (PATIENT) 16.6 SEC (9.7-13.0)
--- NOTE | 2020-01-21 09:24 | PN ---
Progress Note (short form) - Note Progress Note: POD 2, s/p R TKR Pt seen and examined. Reports she is feeling well. Has some discomfort in her knee, improved with pain meds. Tolerating PO. Denies cp/sob, n/v/d. CBC, BMP 01/21/20 08:00 01/21/20 08:00 Abnormal Lab Results 01/20/20 01/21/20 01/21/20 13:14 08:00 08:00 WBC 13.2 H RBC 3.50 L Hgb 10.6 L Absolute Neuts (auto) 10.2 H PT with INR 14.30 H INR 1.21 H Potassium 3.4 L Random Glucose 116 H 01/21/20 08:00 WBC RBC Hgb Absolute Neuts (auto) PT with INR 16.60 H INR 1.40 H Potassium Random Glucose Gen: awake, alert, nad Resp: unlabored on RA Abdo: soft, nt/nd Ext: RLE with dressing c/d/i, Diffuse edema throughout knee and calf, compartments soft, and very TTP, thigh soft/nt, trace edema in foot. 4/5 plantarflexion, 3/5dorsiflexion, 5/5 EHL, 3/5 FHL. + signal on doppler dp/pt, foot warm Left LE compartments soft, supple and non-tender with + signal on dopper. Problem List - Problems (1) Status post total knee replacement, right Assessment/Plan: A/P: 74 y/o F w/ PMHx Hypothyroidism, seizure disorder, hypertension, HLD, atrial fibrillation on coumadin, CAD, COPD, hyperlipidemia, epilepsy, Breast CA (on Arimidex), lung mass sp wedge biopsy, bronchoscopy (non-malignant) POD 2, s/p R TKR with diffuse edema slightly more that to be expected at this time with severely limited ROM and subtheraputic INR with plan to restart home coumadin dose today. -Lovenox bridge to therapeutic coumadin -doppler Right LE R/O DVT -Pain control -Aggressive Ice and elevation while in bed with rolled towel under heel to keep knee in extension. -Continue Coumadin, monitor INR -Elevate lower ext while at rest -Keep dressing c/d/i -PT BID discussed goals of care and ROM goals -consider changing bactrim to another ABX as it interacts with coumadin. -Bowel regimen d/c planning for Rehab d/w attending Dr Ingram Code(s): Z96.651 - PRESENCE OF RIGHT ARTIFICIAL KNEE JOINT
[2020-01-21] MEDS: oxyCODONE HCL 5 MG TABLET PO PRN (09:45)
[2020-01-21] MEDS: SULFAMETHOXAZOLE/TRIMETHOPRIM 800MG/160MG D.S. TABLET PO SCH ×2 (09:46→21:56)
[2020-01-21] MEDS: METOPROLOL TARTRATE 25 MG TABLET (FP) PO SCH (09:46)
[2020-01-21] MEDS: ENOXAPARIN NA (PORCINE) 80 MG/0.8 ML DISP.SYRIN SQ SCH ×2 (09:46→21:55)
[2020-01-21] MEDS: MULTIVITAMINS (DAILY MVI) TABLET (FP) PO SCH (09:46)
[2020-01-21] MEDS: ATORVASTATIN CA 40 MG TABLET (FP) PO SCH (09:46)
[2020-01-21] MEDS: PANTOPRAZOLE 40 MG TABLET PO SCH (09:46)
[2020-01-21] MEDS: ASPIRIN 81 MG CHEWABLE TABLETS PO SCH (09:47)
[2020-01-21] MEDS: SENNOSIDES/DOCUSATE COMBO (SENNA PLUS) TABLET (UD) PO SCH ×2 (09:47→21:56)
[2020-01-21] MEDS: ANASTROZOLE 1 MG TABLET PO SCH (09:47)
[2020-01-21] MEDS: FUROSEMIDE 40 MG TABLET (FP) PO SCH (09:47)
[2020-01-21] MEDS: TOPIRAMATE 25 MG TABLET PO SCH ×2 (09:47→21:56)
[2020-01-21] MEDS: BUDESONIDE/FORMETEROL FUMARATE 160/4.5 mcg INHALER IH SCH ×2 (09:47→21:59)
[2020-01-21] MEDS ORDERED: WARFARIN NA 5 MG TABLET PO ONE (10:05)
--- NOTE | 2020-01-21 10:07 | PN ---
<Júnior Plunkett - Last Filed: 01/21/20 10:04> Physical Exam: SUBJECTIVE: Patient seen and examined at bedside. Passing gas, no BM. Diet was advanced. OBJECTIVE: Vital Signs Period Temp Pulse Resp BP Sys/Landis Pulse Ox Last 24 Hr 98.1 F-99.6 F 78-92 18-18 95-127/50-62 95-97 Gen: AAOx3, NAD HEENT: NCAT, EOMI Neck: supple, no jvd Cardio: rrr, norm s1s2, no mrg Pulm: cta b/l Abd: soft, nontender Ext: R knee with wound dressing cdi. Extremity warm with 2+ dp Laboratory Results - last 24 hr 01/20/20 01/21/20 01/21/20 13:14 08:00 08:00 WBC 13.2 H RBC 3.50 L Hgb 10.6 L Hct 32.9 MCV 94.1 MCH 30.4 MCHC 32.3 RDW 14.2 Plt Count 225 MPV 8.4 Absolute Neuts (auto) 10.2 H Neutrophils % 77.8 D Lymphocytes % 12.1 D Monocytes % 8.5 Eosinophils % 0.9 Basophils % 0.7 Nucleated RBC % 0 PT with INR 14.30 H INR 1.21 H Sodium 138 Potassium 3.4 L Chloride 104 Carbon Dioxide 27 Anion Gap 8 BUN 14.1 Creatinine 1.2 Est GFR (CKD-EPI)AfAm 51.56 Est GFR (CKD-EPI)NonAf 44.48 Random Glucose 116 H Calcium 8.5 01/21/20 08:00 WBC RBC Hgb Hct MCV MCH MCHC RDW Plt Count MPV Absolute Neuts (auto) Neutrophils % Lymphocytes % Monocytes % Eosinophils % Basophils % Nucleated RBC % PT with INR 16.60 H INR 1.40 H Sodium Potassium Chloride Carbon Dioxide Anion Gap BUN Creatinine Est GFR (CKD-EPI)AfAm Est GFR (CKD-EPI)NonAf Random Glucose Calcium Active Medications Generic Name Dose Route Start Last Admin Trade Name Freq PRN Reason Stop Dose Admin Al Hydroxide/Mg Hydroxide 30 ml 01/19/20 11:23 Mylanta Oral Suspension - PO Q4H PRN DYSPEPSIA Albuterol Sulfate 2 puff 01/19/20 11:25 Ventolin Hfa Inhaler - IH Q4H PRN ASTHMA Anastrozole 1 mg 01/20/20 10:00 01/21/20 09:47 Arimidex - PO 1 mg DAILY [facility] Administration Aspirin 81 mg 01/20/20 10:00 01/21/20 09:47 Asa - PO 81 mg BID [facility] Administration Atorvastatin Calcium 40 mg 01/20/20 10:00 01/21/20 09:46 Lipitor - PO 40 mg DAILY [facility] Administration Budesonide/Formoterol Fumarate 2 puff 01/19/20 22:00 01/21/20 09:47 Symbicort 160/4.5mcg - IH 2 puff BID [facility] Administration Enoxaparin Sodium 80 mg 01/21/20 09:15 01/21/20 09:46 Lovenox - SQ 80 mg Q12H [facility] Administration Furosemide 40 mg 01/20/20 10:00 01/21/20 09:47 Lasix - PO 40 mg DAILY [facility] Administration Lactated Ringer's 1,000 mls @ 75 mls/hr 01/19/20 11:30 01/20/20 21:31 Lactated Ringers Solution IV 75 mls/hr ASDIR [facility] Administration Levothyroxine Sodium 75 mcg 01/20/20 07:00 01/21/20 06:33 Synthroid - PO 75 mcg DAILY@0700 [facility] Administration Magnesium Hydroxide 30 ml 01/19/20 11:23 Milk Of Magnesia - PO PRN PRN CONSTIPATION Metoprolol Tartrate 25 mg 01/20/20 10:00 01/21/20 09:46 Lopressor - PO 25 mg DAILY [facility] Administration Morphine Sulfate 2 mg 01/19/20 11:28 01/20/20 06:09 Morphine Sulfate IVPUSH 2 mg Q6H PRN Administration PAIN LEVEL 7 - 10 Multivitamins/Minerals/Vitamin C 1 tab 01/20/20 10:00 01/21/20 09:46 Tab-A-Vit - PO 1 tab DAILY [facility] Administration Nitroglycerin 0.4 mg 01/19/20 11:25 Nitrostat - SL PRN PRN PAIN Ondansetron HCl 4 mg 01/19/20 11:17 Zofran Injection IVPUSH Q6H PRN NAUSEA AND/OR VOMITING Ondansetron HCl 4 mg 01/19/20 11:23 Zofran Injection IVPUSH Q6H PRN NAUSEA Oxycodone HCl 5 mg 01/19/20 11:28 01/21/20 09:46 Roxicodone - PO 5 mg Q4H PRN Administration PAIN LEVEL 1-5 Oxycodone HCl 10 mg 01/19/20 11:28 01/20/20 09:12 Roxicodone - PO 10 mg Q4H PRN Administration PAIN LEVEL 6-10 Pantoprazole Sodium 40 mg 01/20/20 10:00 01/21/20 09:46 Protonix - PO 40 mg DAILY [facility] Administration Senna/Docusate Sodium 2 tablet 01/19/20 22:00 01/21/20 09:47 Pericolace - PO 2 tablet BID [facility] Administration Topiramate 25 mg 01/19/20 22:00 01/21/20 09:47 Topamax - PO 25 mg BID [facility] Administration Trimethoprim/Sulfamethoxazole 1 each 01/19/20 22:00 01/21/20 09:46 Bactrim Ds - PO 1 each BID [facility] Administration ASSESSMENT/PLAN: 74 year old female with known history of Hypothyroidism, seizure disorder, hypertension, HLD, atrial fibrillation on coumadin (currently on hold for surgery), CAD, COPD, Breast CA (on Arimidex), lung mass sp wedge biopsy, bronchoscopy (non-malignant) who is being admitted after right knee arthroplasty. #s/p right knee arthroplasty (01/19/2020) - pain meds prn -f/u surg recs -c/w bactrim -PT -morphine, oxycodone #Atrial fib -INR increased modestly - will bolus 5mg coumadin today per recs. Home dose 2mg -will bridge with lovenox - rate is controlled -c/w Lopressor #Seizure disorder -cont topiramate #HTN -BP controlled #HLD -c/w atorvastatin #CAD -c/w ASA, nitro prn #COPD -budesonide/formeterol -albuterol #Breast CA -c/w Anastrozole #Hypothyroid -levothyroxine on Lasix, protonix Visit type - Emergency Visit Emergency Visit: No - New Patient This patient is new to me today: No - Critical Care Critical Care patient: No ATTENDING PHYSICIAN STATEMENT I saw and evaluated the patient. I reviewed the resident's note and discussed the case with the resident. I agree with the resident's findings and plan as documented. SUBJECTIVE: OBJECTIVE: ASSESSMENT AND PLAN: <Tony Rosa - Last Filed: 01/21/20 17:55> Physical Exam: SUBJECTIVE: Patient seen and examined OBJECTIVE: Vital Signs Period Temp Pulse Resp BP Sys/Landis Pulse Ox Last 24 Hr 97.9 F-98.7 F 74-95 18-18 97-127/41-58 95-97 Gen: AAOx3, NAD HEENT: NCAT, EOMI Neck: supple, no jvd Cardio: rrr, norm s1s2, no mrg Pulm: cta b/l Abd: soft, nontender Ext: R knee with wound dressing cdi. Extremity warm with 2+ dp Laboratory Results - last 24 hr 01/20/20 01/21/20 01/21/20 12:20 08:00 08:00 WBC 13.2 H RBC 3.50 L Hgb 10.6 L Hct 32.9 MCV 94.1 MCH 30.4 MCHC 32.3 RDW 14.2 Plt Count 225 MPV 8.4 Absolute Neuts (auto) 10.2 H Neutrophils % 77.8 D Lymphocytes % 12.1 D Monocytes % 8.5 Eosinophils % 0.9 Basophils % 0.7 Nucleated RBC % 0 PT with INR INR Sodium 138 Potassium 3.4 L Chloride 104 Carbon Dioxide 27 Anion Gap 8 BUN 14.1 Creatinine 1.2 Est GFR (CKD-EPI)AfAm 51.56 Est GFR (CKD-EPI)NonAf 44.48 Random Glucose 116 H Calcium 8.5 COVID-19 ([facility]) Not detected 01/21/20 08:00 WBC RBC Hgb Hct MCV MCH MCHC RDW Plt Count MPV Absolute Neuts (auto) Neutrophils % Lymphocytes % Monocytes % Eosinophils % Basophils % Nucleated RBC % PT with INR 16.60 H INR 1.40 H Sodium Potassium Chloride Carbon Dioxide Anion Gap BUN Creatinine Est GFR (CKD-EPI)AfAm Est GFR (CKD-EPI)NonAf Random Glucose Calcium COVID-19 ([facility]) Active Medications Generic Name Dose Route Start Last Admin Trade Name Freq PRN Reason Stop Dose Admin Al Hydroxide/Mg Hydroxide 30 ml 01/19/20 11:23 Mylanta Oral Suspension - PO Q4H PRN DYSPEPSIA Albuterol Sulfate 2 puff 01/19/20 11:25 Ventolin Hfa Inhaler - IH Q4H PRN ASTHMA Anastrozole 1 mg 01/20/20 10:00 01/21/20 09:47 Arimidex - PO 1 mg DAILY [facility] Administration Atorvastatin Calcium 40 mg 01/20/20 10:00 01/21/20 09:46 Lipitor - PO 40 mg DAILY [facility] Administration Budesonide/Formoterol Fumarate 2 puff 01/19/20 22:00 01/21/20 09:47 Symbicort 160/4.5mcg - IH 2 puff BID [facility] Administration Enoxaparin Sodium 80 mg 01/21/20 09:15 01/21/20 09:46 Lovenox - SQ 80 mg Q12H [facility] Administration Furosemide 40 mg 01/20/20 10:00 01/21/20 09:47 Lasix - PO 40 mg DAILY [facility] Administration Lactated Ringer's 1,000 mls @ 75 mls/hr 01/19/20 11:30 01/20/20 21:31 Lactated Ringers Solution IV 75 mls/hr ASDIR [facility] Administration Levothyroxine Sodium 75 mcg 01/20/20 07:00 01/21/20 06:33 Synthroid - PO 75 mcg DAILY@0700 [facility] Administration Magnesium Hydroxide 30 ml 01/19/20 11:23 Milk Of Magnesia - PO PRN PRN CONSTIPATION Metoprolol Tartrate 25 mg 01/20/20 10:00 01/21/20 09:46 Lopressor - PO 25 mg DAILY [facility] Administration Morphine Sulfate 2 mg 01/19/20 11:28 01/20/20 06:09 Morphine Sulfate IVPUSH 2 mg Q6H PRN Administration PAIN LEVEL 7 - 10 Multivitamins/Minerals/Vitamin C 1 tab 01/20/20 10:00 01/21/20 09:46 Tab-A-Vit - PO 1 tab DAILY [facility] Administration Nitroglycerin 0.4 mg 01/19/20 11:25 Nitrostat - SL PRN PRN PAIN Ondansetron HCl 4 mg 01/19/20 11:17 Zofran Injection IVPUSH Q6H PRN NAUSEA AND/OR VOMITING Ondansetron HCl 4 mg 01/19/20 11:23 Zofran Injection IVPUSH Q6H PRN NAUSEA Oxycodone HCl 5 mg 01/19/20 11:28 Roxicodone - PO Q4H PRN PAIN LEVEL 1-5 Oxycodone HCl 10 mg 01/19/20 11:28 01/21/20 09:45 Roxicodone - PO 10 mg Q4H PRN Administration PAIN LEVEL 6-10 Pantoprazole Sodium 40 mg 01/20/20 10:00 01/21/20 09:46 Protonix - PO 40 mg DAILY [facility] Administration Senna/Docusate Sodium 2 tablet 01/19/20 22:00 01/21/20 09:47 Pericolace - PO 2 tablet BID [facility] Administration Topiramate 25 mg 01/19/20 22:00 01/21/20 09:47 Topamax - PO 25 mg BID [facility] Administration Trimethoprim/Sulfamethoxazole 1 each 01/19/20 22:00 01/21/20 09:46 Bactrim Ds - PO 1 each BID [facility] Administration Warfarin Sodium 2 mg 01/22/20 18:00 Coumadin - PO DAILY@1800 [facility] CBC, BMP 01/21/20 08:00 01/21/20 08:00 ASSESSMENT/PLAN: 74 year old female with known history of Hypothyroidism, seizure disorder, hypertension, HLD, atrial fibrillation on coumadin (currently on hold for surgery), CAD, COPD, Breast CA (on Arimidex), lung mass sp wedge biopsy, bronchoscopy (non-malignant) who is being admitted after right knee arthroplasty. #s/p right knee arthroplasty (01/19/2020) - pain meds prn -f/u surg recs -c/w bactrim -PT -morphine, oxycodone #Atrial fib -INR increased modestly - will bolus 5mg coumadin today per recs. Home dose 2mg -will bridge with lovenox since inr is low - rate is controlled -c/w Lopressor #Seizure disorder -cont topiramate #HTN -BP controlled #HLD -c/w atorvastatin #CAD -c/w ASA, nitro prn #COPD -budesonide/formeterol -albuterol #Breast CA -c/w Anastrozole #Hypothyroid -levothyroxine ATTENDING PHYSICIAN STATEMENT I saw and evaluated the patient. I reviewed the resident's note and discussed the case with the resident. I agree with the resident's findings and plan as documented. SUBJECTIVE: OBJECTIVE: ASSESSMENT AND PLAN:
[2020-01-21] MEDS ORDERED: POTASSIUM CHLORIDE TABS 20 MEQ TABLET.ER (FP) PO ONE (10:32)
--- NOTE | 2020-01-21 17:28 | PATH ---
Surgical Pathology Report Patient Name: HEIDY LEE Med. Rec. #: [id number] /Age/Gender: 1945 (Age: 74) / F Account: [id number] Location: [address] [place] [address] Taken: 01/19/2020 Received: 01/19/2020 Reported: 01/21/2020 Physicians: Abhijit Ingram M.D. Specimen(s) Received TIBIAL,FEMORAL,PATELLAR TISSUE AND BONE, RIGHT SIDE Clinical History Unilateral primary osteoarthritis right knee Final Diagnosis TIBIAL, FEMORAL, PATELLAR TISSUE AND BONE RIGHT SIDE , RESECTION: DEGENERATIVE JOINT DISEASE, RIGHT KNEE. Electronically Signed Rose Mary Sanchez M.D. Gross Description Received in formalin labeled "tibial, femoral, patellar tissue and bone right side," is a 13.0 x 10.0 x 2.0 cm aggregate of multiple portions of bone and soft tissue. The tibial plateau measures 7.5 x 5.2 x 1.6 cm. There are multiple areas of eburnation present, measuring up to 2.2 cm in greatest dimension. The remaining articular surfaces are sanders-yellow and diffusely granular. The underlying trabecular bone is yellow and hard. Nurse Practitioner Home Assessments sections are submitted in one cassette, following decalcification. 01/20/2020 [facility]01/20/2020
[2020-01-22] MEDS: LEVOTHYROXINE NA 75 MCG TABLET (FP) PO SCH (06:47)
[2020-01-22] MEDS: LACTATED RINGERS SOLUTION 1,000 ML IV SCH (07:37)
[2020-01-22 08:43] LABS: BASO % 0.3 % (0-2.0); EOS % 2.9 % (0-4.5); HEMATOCRIT 30.2 % (32.4-45.2); HEMOGLOBIN 9.9 GM/dL (10.7-15.3); LYMPH % 15.2 % (8-40); MCH 30.7 pg (25.7-33.7); MCHC 32.9 g/dl (32.0-36.0); MEAN CELL VOLUME 93.3 fl (80-96); MEAN PLT VOLUME 8.8 fl (7.5-11.1); MONO % 5.8 % (3.8-10.2); NEUT % 75.8 % (42.8-82.8); PLATELET COUNT 221 K/MM3 (134-434); RBC 3.23 M/mm3 (3.60-5.2); RDW 14.4 % (11.6-15.6); WHITE BLOOD COUNT 11.4 K/mm3 (4.0-10.0)
[2020-01-22 09:05] LABS: BLOOD UREA NITROGEN 17.9 mg/dL (7-18); CALCIUM 8.2 mg/dL (8.5-10.1); CREATININE 1.3 mg/dL (0.55-1.3); POTASSIUM 3.3 mmol/L (3.5-5.1)
--- NOTE | 2020-01-22 09:49 | PN ---
Progress Note (short form) - Note Progress Note: POD 3, s/p R TKR Pt seen and examined. Reports she is feeling well. Has some discomfort in her knee, improved with pain meds. Tolerating PO. Denies cp/sob, n/v/d. She has been OOB ambulating with PT BID. CBC, BMP 01/22/20 08:06 01/22/20 08:06 Abnormal Lab Results 01/22/20 01/22/20 08:06 08:06 WBC 11.4 H RBC 3.23 L Hgb 9.9 L Hct 30.2 L Absolute Neuts (auto) 8.6 H Sodium 135 L Potassium 3.3 L Anion Gap 7 L Random Glucose 110 H Calcium 8.2 L Gen: awake, alert, nad Resp: unlabored on RA Abdo: soft, nt/nd Ext: extremely limited ROM from 0-15 degrees with pain blocking. RLE incision c/d/i, with surrounding tissue intact and no tracking erythema or evidence of infection, scott in situ with no active d/c. Diffuse edema throughout knee improved from yesterdays exam and calf, compartments soft, and very TTP, thigh soft/nt, trace edema in foot. 4/5 plantarflexion, 3/5dorsiflexion, 5/5 EHL, 3/5 FHL. + signal on doppler dp/pt, foot warm Left LE compartments soft, supple and non-tender feet and toes warm and well perfused. Left LE duplex 01/20: negative for DVT Problem List - Problems (1) Status post total knee replacement, right Assessment/Plan: A/P: 74 y/o F w/ PMHx Hypothyroidism, seizure disorder, hypertension, HLD, atrial fibrillation on coumadin, CAD, COPD, hyperlipidemia, epilepsy, Breast CA (on Arimidex), lung mass sp wedge biopsy, bronchoscopy (non-malignant) POD 2, s/p R TKR with diffuse edema slightly more that to be expected at this time with severely limited ROM and subtheraputic INR with plan to restart home coumadin dose today. -Lovenox bridge to therapeutic coumadin -Pain control -Aggressive Ice and elevation while in bed with rolled towel under heel to keep knee in extension. -Continue Coumadin, monitor INR -Keep dressing c/d/i -PT BID discussed goals of care and ROM goals -Bowel regimen -Continue ABX x 2 weeks post op -d/c planning for Rehab -Cleared by surgery for discharge -Continue pre-op anticoagulation regimen d/w attending Dr Ingram Code(s): Z96.651 - PRESENCE OF RIGHT ARTIFICIAL KNEE JOINT
[2020-01-22] MEDS ORDERED: POTASSIUM CHLORIDE TABS 20 MEQ TABLET.ER (FP) PO ONE (10:00)
[2020-01-22] MEDS ORDERED: PT OWN MED DRAWER 7, Y5N ONE (10:20)
[2020-01-22] MEDS: PANTOPRAZOLE 40 MG TABLET PO SCH (10:23)
[2020-01-22] MEDS: oxyCODONE HCL 5 MG TABLET PO PRN (10:23)
[2020-01-22] MEDS: FUROSEMIDE 40 MG TABLET (FP) PO SCH (10:27)
[2020-01-22] MEDS: TOPIRAMATE 25 MG TABLET PO SCH (10:27)
[2020-01-22] MEDS: ATORVASTATIN CA 40 MG TABLET (FP) PO SCH (10:27)
[2020-01-22] MEDS: SULFAMETHOXAZOLE/TRIMETHOPRIM 800MG/160MG D.S. TABLET PO SCH (10:27)
[2020-01-22] MEDS: MULTIVITAMINS (DAILY MVI) TABLET (FP) PO SCH (10:27)
[2020-01-22] MEDS: ENOXAPARIN NA (PORCINE) 80 MG/0.8 ML DISP.SYRIN SQ SCH (10:27)
[2020-01-22] MEDS: METOPROLOL TARTRATE 25 MG TABLET (FP) PO SCH (10:27)
[2020-01-22] MEDS: ANASTROZOLE 1 MG TABLET PO SCH (10:28)
--- NOTE | 2020-01-22 10:30 | PN ---
Teaching Attending Note Name of Resident: Júnior Plunkett ATTENDING PHYSICIAN STATEMENT I saw and evaluated the patient. I reviewed the resident's note and discussed the case with the resident. I agree with the resident's findings and plan as documented. SUBJECTIVE:She is comfortable has no new symptoms OBJECTIVE: Vital Signs Period Temp Pulse Resp BP Sys/Landis Pulse Ox Last 24 Hr 98.2 F-100.2 F 74-97 18-18 112-129/41-57 97 Patient is comfortable HEENT normal Neck supple no JVD Lungs clear no wheezing Abdomen nontender no organomegaly bowel sounds normal Extremities Right knee wound is clean Neurologically he is alert awake oriented, nonfocal Skin no rash noted CBC, BMP 01/22/20 08:06 01/22/20 08:06 INR still pending ASSESSMENT AND PLAN: 74 year old female with known history of Hypothyroidism, seizure disorder, hypertension, HLD, atrial fibrillation on coumadin (currently on hold for surgery), CAD, COPD, Breast CA (on Arimidex), lung mass sp wedge biopsy, bronchoscopy (non-malignant) who is being admitted after right knee arthrop lasty. #s/p right knee arthroplasty (01/19/2020) Continue pain medications #Atrial fib She is on the bridge of Lovenox and warfarin awaiting today's INR she can possibly go to [facility] with continue of both Lovenox and warfarin once the INR is therapeutic Lovenox can be stopped. #Seizure disorder -cont topiramate #HTN -BP controlled #HLD -c/w atorvastatin #CAD -c/w ASA, nitro prn #COPD -budesonide/formeterol -albuterol #Breast CA -c/w Anastrozole #Hypothyroid -levothyroxine She had acute CT chest done in the hospital ordered by her private doctor Fr Pankaj Serna . I spoke to him yesterday he is going to follow-up regarding a lesion in the CAT scan which looks like a metastatic lesion. I also explained to patient as well she is going to follow-up with him after she comes out of the rehab.
[2020-01-22] MEDS: SENNOSIDES/DOCUSATE COMBO (SENNA PLUS) TABLET (UD) PO SCH (10:31)
[2020-01-22] MEDS: BUDESONIDE/FORMETEROL FUMARATE 160/4.5 mcg INHALER IH SCH (10:46)
[2020-01-22 11:01] LABS: INR 2.04 (0.83-1.09); PROTHROMBIN TIME (PATIENT) 24.2 SEC (9.7-13.0)
--- NOTE | 2020-01-22 11:35 | DS ---
Physical Exam: SUBJECTIVE: Patient seen and examined at bedside. Feels well. Had BM. INR within therapeutic range. OBJECTIVE: Vital Signs Period Temp Pulse Resp BP Sys/Landis Pulse Ox Last 24 Hr 98.2 F-100.2 F 74-97 18-18 112-141/41-84 97 PHYSICAL EXAM Gen: AAOx3, NAD HEENT: NCAT, EOMI Neck: supple, no jvd Cardio: rrr, norm s1s2, no mrg Pulm: cta b/l Abd: soft, nontender Ext: R knee with wound dressing cdi. Extremity warm with 2+ dp LABS Laboratory Results - last 24 hr 01/22/20 01/22/20 01/22/20 08:06 08:06 10:08 WBC 11.4 H RBC 3.23 L Hgb 9.9 L Hct 30.2 L MCV 93.3 MCH 30.7 MCHC 32.9 RDW 14.4 Plt Count 221 MPV 8.8 Absolute Neuts (auto) 8.6 H Neutrophils % 75.8 Lymphocytes % 15.2 D Monocytes % 5.8 Eosinophils % 2.9 D Basophils % 0.3 Nucleated RBC % 0 PT with INR 24.20 H INR 2.04 H Sodium 135 L Potassium 3.3 L Chloride 101 Carbon Dioxide 28 Anion Gap 7 L BUN 17.9 Creatinine 1.3 Est GFR (CKD-EPI)AfAm 46.80 Est GFR (CKD-EPI)NonAf 40.38 Random Glucose 110 H Calcium 8.2 L HOSPITAL COURSE: Date of Admission:01/19/20 Date of Discharge: 01/22/20 74 year old female with known history of Hypothyroidism, seizure disorder, hypertension, HLD, atrial fibrillation on coumadin (held for surgery), CAD, COPD, Breast CA (on Arimidex), lung mass sp wedge biopsy, bronchoscopy (non- malignant) who was admitted after right knee arthroplasty. The surgery went well, and post-op was uneventful. Pt had a BM 2 days after her procedure and was tolerating her diet without difficulty. Following her procedure, her warfarin was restarted with Lovenox bridge. INR is within therapeutic range. Her other medical problems were managed with her home meds. Seizure disorder-> topiramate HTN -> lopressor HLD -> atorvastatin CAD -> ASA, nitro prn COPD-> budesonide/formeterol, albuterol Breast CA-> Anastrozole Hypothyroid-> levothyroxine Minutes to complete discharge: 30 Discharge Summary Problems reviewed: Yes Reason For Visit: UNILATERAL PRIMARY OSTEOARTHRITIS, RIGHT KNEE Current Active Problems Status post total knee replacement, right (Acute) Condition: Stable - Instructions Diet, Activity, Other Instructions: Instructions for Knee Replacement Post Operative Instructions Physical activity Weight bearing as tolerated on your surgical side. Do not put pillow under knee. May put pillow under heel. Do not operate a vehicle until cleared by your surgeon and no longer taking narcotics. Wound care Leave your surgical dressing in place. Do not change the dressing until seen by your surgeon in the office. No baths or showers. Do not submerge your incision. Do not apply any ointments or lotions to your incision. Please call the office if your dressing is soiled/dirty or is falling off. Apply Graduated Compression Stockings (TEDS) to both lower extremities - remove daily for hygiene ONLY. Diet There are no dietary restrictions. Eat healthy, high-fiber foods. Drink 6 to 8 glasses of liquid each day. This will assist in keeping your bowels are regular. Pain management Any pain prescription medication ordered should be taken as prescribed for moderate to severe pain. Do not take additional Tylenol while taking Percocet. Continue Coumadin and aspirin as directed by your prescribing physician Take your bactrim DS for a total of 10 days, as prescribed Call Dr. Ingram for any of the following: Severe pain not relieved by medication Fever of 101 or higher Excessive bleeding or drainage on dressing Inability to urinate If you experience chest pain or shortness of breath, please seek emergency care immediately. Please call the office to confirm your post-op appointment for the week following surgery. You can resume your home dose of Coumadin. Make sure you follow up with your primary care doctor to get your INR checked within 1 week. Disposition: [facility] - Home Medications Comprehensive Discharge Medication List: Ambulatory Orders Anastrozole [Arimidex -] 1 mg PO DAILY 12/19/17 Atorvastatin Ca [Lipitor] 40 mg PO DAILY 12/19/17 Budesonide/Formeterol Fumarate [SYMBICORT 160/4.5mcg -] 2 inh PO BID 12/19/17 Furosemide [Lasix] 40 mg PO DAILY 12/19/17 Levothyroxine [Synthroid -] 75 mcg PO DAILY 12/19/17 Metoprolol Tartrate 25 mg PO DAILY 12/19/17 Nitroglycerin Sublingual [Nitrostat -] 0.4 mg SL PRN PRN 12/19/17 Topiramate 25 mg PO BID 12/19/17 Warfarin Na [Coumadin -] 2 mg PO DAILY 12/19/17 Albuterol Sulfate Inhaler - [Ventolin HFA Inhaler -] 2 puff IH Q4H PRN inhaler 12/20/17 Aspirin [ASA -] 81 mg PO DAILY tab.chew 12/20/17 Aspirin [ASA -] 81 mg PO BID tab.chew 01/22/20 Warfarin Na [Coumadin -] 2 mg PO DAILY@1800 tablet 01/22/20 This patient is new to me today: No Emergency Visit: No Critical Care patient: No - Discharge Referral Referred to [facility] No ATTENDING PHYSICIAN STATEMENT I saw and evaluated the patient. I reviewed the resident's note and discussed the case with the resident. I agree with the resident's findings and plan as documented. SUBJECTIVE: OBJECTIVE: ASSESSMENT AND PLAN:
[2020-01-22 13:24] VITALS: BP 122/57; PULSE 82; TEMP 96.7
[2020-01-22] MEDS ORDERED: WARFARIN NA 2 MG TABLET PO SCH (18:00)
--- NOTE | 2020-02-06 16:41 | OP ---
DATE OF OPERATION: 01/19/2020 PREOPERATIVE DIAGNOSIS: Very severe osteoarthritis of the right knee with valgus deformity and tear in the medial and the lateral menisci. POSTOPERATIVE DIAGNOSIS: Very severe osteoarthritis of the right knee with valgus deformity and tear in the medial and the lateral menisci. SURGEON: Abhijit Ingram MD. ANESTHESIA: Spinal. PROCEDURE: 1. Total knee replacement. 2. Correction of valgus deformity. 3. Excision of medial and lateral menisci. DESCRIPTION OF PROCEDURE: After induction of spinal anesthesia, and without any tourniquet, the entire leg and knee and thigh were prepped and draped in the usual manner. A straight incision extending from the pubic tubercle to 5 cm proximal to the superior pole of the patella was done. This was deepened through the subcutaneous tissue down to the extensor mechanism. A gentle medial flap was made, uncovering proximally the junction between the vastus medialis and the . In the mid section of the medial border of the patella and distally, the medial border of the patellar tendon. The extensor mechanism now was released along that line and was opened. A large amount of serous fluid extruded out of the joint. The inspection confirmed the massive arthritic changes in the form of complete eburnation of the articular cartilage throughout the knee, large margins of osteo were found throughout the knee. There was degenerative tearing at the medial and the lateral menisci and hypertrophy of the capsule mostly in the suprapatellar pouch. The procedure started first by the debulking of the hypertrophied synovium, and this was followed by a meniscectomy medially and laterally through the same arthrotomy. The alignment of the right being in valgus, a pie crusting technique was done at the lateral structures including the iliotibial band and the lateral collateral ligament, and this allowed normalization of the axis of the knee. Following this and using appropriate jigs, cuts were made into the distal femur of the proximal tibia in the articular surface of the patella. Appropriate sizing using appropriate sizers from the [employer] prosthesis lesion to show that the most adequate femoral size for the tibia was number 3, for the patella size was number 29, and the spacer was 9 mm. Temporary components now were placed, and the knee was examined. The alignment now seems to be now within normal limits. Range of motion seems to be from full extension to 140 degrees of flexion. There was very good stability and flexion and extension, and the patella was tracking perfectly while in the intracondylar groove. All temporary components now were removed. Irrigation was done with normal saline. Hemostasis was obtained, and the permanent prosthesis was placed, first by cementing the patellar button at the tibial tray, and after hardening of the cement, the femoral component now was pressed against the femur, and the spacer was placed in between. A final check again shows a near normal alignment of the leg. There is full extension and flexion to 140 degrees. The patella was tracking perfectly while in the intracondylar groove, and there was very good stability in flexion and extension. Final irrigation was done with normal saline. Hemostasis obtained. The wound was closed in several layers, Vicryl number 1 for the extensor mechanism, 2-0 for the subcutaneous tissue, and scott for the skin. The dressing was applied. Intraoperative x-rays were done and checked and showed excellent seating and alignment of the prosthesis. The patient tolerated the procedure and left the operating room in excellent condition. Sydney [id number]
== END 2020-01-22 15:00 | DRG 470 ==
LOC: J2C 06:07 → J6S 14:47
PROVIDERS: ADMIT Internal Medicine; ATTEND Internal Medicine
PROC: 0SBC0ZZ Excision of Right Knee Joint, Open Approach (ICD-10-PCS; 2020-01-19)
PROC: 0SRC0J9 Replacement of Right Knee Joint with Synthetic Substitute, Cemented, Open Approach (ICD-10-PCS; principal; 2020-01-19 08:00)
DX: M17.11 Unilateral primary osteoarthritis, right knee (principal); E03.9 Hypothyroidism, unspecified; I10 Essential (primary) hypertension; M21.061 Valgus deformity, not elsewhere classified, right knee; E78.5 Hyperlipidemia, unspecified; I48.91 Unspecified atrial fibrillation; G40.909 Epilepsy, unspecified, not intractable, without status epilepticus; S83.281A Other tear of lateral meniscus, current injury, right knee, initial encounter; I25.10 Atherosclerotic heart disease of native coronary artery without angina pectoris; J44.9 Chronic obstructive pulmonary disease, unspecified; S83.241A Other tear of medial meniscus, current injury, right knee, initial encounter; Z85.3 Personal history of malignant neoplasm of breast; Z79.01 Long term (current) use of anticoagulants
CPT/HCPCS: 36415; 71250-TC; 73560-TC-RT-FY; 80048; 85025; 85027; 85610; 86850; 86900; 86901; 88304-TC; 88311-TC; 93971-TC; 94010; 94760; 97116-GP; 97162-GP; U0003

== ENCOUNTER 2020-04-09 23:10 | Observation (INO) | payer OTHER ==
--- NOTE | 2020-04-09 23:55 | PDOC ---
History of Present Illness - General Chief Complaint: Chest Pain Stated Complaint: CHEST PAIN & SOB Time Seen by Provider: 04/09/20 23:50 History Source: Patient, Family, Old Records Exam Limitations: No Limitations - History of Present Illness Initial Comments: 04/09/20 23:51 Heidy Conley is a 74F with PMH asthma/COPD, CAD, rectal bleeding, HTN, HLD, epilepsy, and hypothyroidism. reports having chest pain while at rest in bed with SOB has had this pain before and was admitted for observation has asthma/COPD, denies wheezing, has been taking inhalers without increase has baseline angina with exertion, this is similar pain while at rest no palpitations no N/V/C/D no urinary symptoms/abd pain no recent trauma or exercise no sick contacts PMD Commentucci Past History - Medical History Allergies/Adverse Reactions: Allergies Allergy/AdvReac Type Severity Reaction Status Date / Time No Known Drug Allergies Allergy Verified 04/09/20 23:24 Home Medications: Ambulatory Orders Anastrozole [Arimidex -] 1 mg PO DAILY 12/19/17 Atorvastatin Ca [Lipitor] 40 mg PO DAILY 12/19/17 Budesonide/Formeterol Fumarate [SYMBICORT 160/4.5mcg -] 2 inh PO BID 12/19/17 Furosemide [Lasix] 40 mg PO DAILY 12/19/17 Levothyroxine [Synthroid -] 75 mcg PO DAILY 12/19/17 Metoprolol Tartrate 25 mg PO DAILY 12/19/17 Nitroglycerin Sublingual [Nitrostat -] 0.4 mg SL PRN PRN 12/19/17 Topiramate 25 mg PO BID 12/19/17 Albuterol Sulfate Inhaler - [Ventolin HFA Inhaler -] 2 puff IH Q4H PRN inhaler 12/20/17 Aspirin [ASA -] 81 mg PO DAILY tab.chew 12/20/17 Warfarin Na [Coumadin -] 2 mg PO DAILY@1800 tablet 01/22/20 Azithromycin [Zithromax -] 250 mg PO UTDICT #5 tab 04/13/20 Guaifenesin [Robitussin] 10 ml PO Q6H PRN #100 ml MDD 40ML 04/13/20 Anemia: No Asthma: No Cancer: No Cardiac Disorders: Yes (AFIB) CVA: No COPD: Yes (SOB) CHF: No Dementia: No Diabetes: No GI Disorders: No Disorders: No HTN: No Hypercholesterolemia: No Liver Disease: No Seizures: No Thyroid Disease: No - Surgical History Abdominal Surgery: No Appendectomy: No Cardiac Surgery: No Cholecystectomy: No Gastric Stapling: No GI Surgery: No Lung Surgery: Yes (Biopsy) Neurologic Surgery: No Orthopedic Surgery: No - Immunization History Td Vaccination: Yes TDAP Vaccination: Yes Immunization Up to Date: Yes - Psycho-Social/Smoking History Smoking Status: Yes Smoking History: Never smoked Have you smoked in the past 12 months: No Number of Cigarettes Smoked Daily: 0 If you are a former smoker, when did you quit?: 1988 'Breaking Loose' booklet given: 08/18/16 Review of Systems - Review of Systems Able to Perform ROS?: Yes Constitutional: No: Symptoms Reported HEENTM: No: Symptoms Reported Respiratory: Yes: SOB with Exertion, SOB at Rest. No: Cough, Wheezing Cardiac (ROS): Yes: Chest Pain. No: Irregular Heart Rate, Lightheadedness, Palpitations, Syncope ABD/GI: No: Symptoms Reported : No: Symptoms Reported Musculoskeletal: No: Symptoms Reported Integumentary: No: Symptoms Reported Neurological: No: Symptoms reported Endocrine: No: Symptoms Reported Hematologic/Lymphatic: No: Symptoms Reported All Other Systems: Reviewed and Negative *Physical Exam - Vital Signs Last Vital Signs Temp Pulse Resp BP Pulse Ox 97 F L 86 18 119/62 99 04/09/20 23:21 04/09/20 23:21 04/09/20 23:21 04/09/20 23:21 04/09/20 23:21 - Physical Exam General Appearance: Yes: Nourished, Appropriately Dressed, Obese. No: Apparent Distress HEENT: positive: EOMI, FERNANDEZ, Normal Voice, Symmetrical, TMs Normal, Pharynx Normal, Hearing Grossly Normal. negative: Pharyngeal Erythema, Tonsillar Exudate, Tonsillar Erythema Neck: positive: Trachea midline, Normal Thyroid, Supple. negative: Tender, Lymphadenopathy (R), Lymphadenopathy (L) Respiratory/Chest: positive: Lungs Clear, Normal Breath Sounds. negative: Chest Tender, Respiratory Distress, Accessory Muscle Use, Crackles, Rales, Rhonchi, Stridor, Wheezing Cardiovascular: positive: Regular Rhythm, Regular Rate. negative: Murmur Gastrointestinal/Abdominal: positive: Normal Bowel Sounds, Flat, Soft. negative: Tender, Organomegaly, Pulsatile Mass, Guarding, Rebound Musculoskeletal: positive: Normal Inspection. negative: CVA Tenderness, Decreased Range of Motion, Vertebral Tenderness Extremity: positive: Normal Capillary Refill, Normal Inspection, Normal Range of Motion. negative: Tender, Pedal Edema, Swelling, Calf Tenderness Integumentary: positive: Normal Color, Dry, Warm Neurologic: positive: Fully Oriented, Alert, Normal Mood/Affect, Normal Response ED Treatment Course - LABORATORY CBC & Chemistry Diagram: 04/10/20 00:15 04/11/20 07:20 - RADIOLOGY Radiograph Interpretation: 04/10/20 05:46 Davey Mcrae MD wrote on Apr 10, 2020 at 05:41 AM: Referring Physician: CHARLES AVITIA Patient Name: HEIDY CONLEY THIS IS A PRELIMINARY REPORT DATE OF SERVICE: 2020-04-10 04:37:54 IMAGES: [id number] EXAM: CT ANGIOGRAM CHEST WITH CONTRAST AND 3D ANGIOGRAPHIC INSTRUCTIONS HISTORY: 74-Year-Old Female d-Dimer 2300 Assessed For Pulmonary Artery Embolism. COMPARISON: None. TECHNIQUE: Following 75 mL Omnipaque 350 IV contrast administration thin axial images were obtained through the chest for pulmonary artery evaluation by pulmonary embolism protocol with images transmitted to a remote workstation for 3-D post-processing included coronal and sagittal reformatted 3-D MIP images which were permanently stored in the patient medical record PACS. FINDINGS: No large central pulmonary artery embolism. Evaluation of the distal segmental branches are limited by artifact. No aortic aneurysm or dissection. Arteriosclerosis of the aorta and aortic branches. Calcified coronary artery arteriosclerosis. Left lower lobe nonspecific 4 x 3.7 x 1.4 cm mass may be benign or malignant. Right middle lobe nonspecific 8 mm lung nod ule on axial image 59. Right middle lobe nonspecific 9 mm lung nodule on axial image 59. Subcentimeter mediastinal and hilar lymph nodes noted. Cholelithiasis with gallbladder distention borderline gallbladder wall thickening. Diverticulosis. Degenerative disc disease. Age- indeterminate 50% superior endplate compression fracture of L1. Moderate to severe neural foraminal narrowing in the upper lumbar levels. IMPRESSION: No large central pulmonary artery embolism. Arteriosclerosis of the aorta and aortic branches. Calcified coronary artery arteriosclerosis. Left lower lobe nonspecific 4 x 3.7 x 1.4 cm mass may be benign or malignant. If clinically indicated follow-up outpatient evaluation may be needed. Right middle lobe nonspecific 8 mm lung nodule, right middle lobe nonspecific 9 mm lung nodule may be benign or malignant. If clinically indicated follow-up outpatient evaluation may be needed. Subcentimeter mediastinal and hilar lymph nodes noted. Cholelithiasis with gallbladder distention borderline gallbladder wall thickening. Diverticulosis. Age-indeterminate 50% superior endplate compression fracture of L1. Moderate to severe neural foraminal narrowing in the upper lumbar levels. Medical Decision Making - Medical Decision Making 04/10/20 01:27 Patient presents with chest pain while at rest with SOB, has PMH COPD/asthma and CAD, has never had VT or CVA. No crackles or wheezing on exam, no evidence of fluid overload, not having chest pain while in the ED. Evaluating for ACS via CBC/CMP/CP/ECG/CXR/BNP, will need admission to TELE for further monitoring. 04/10/20 05:42 Labs notable for: - WBC 11.9 - BNP 397.2 - D-dimer 2300, well above normal limits for age - trop negative ECG NSR with LBBB, HR 80. QTc 452, no TWI or concerning TREVA/D. CXR unremarkable CTA ordered given elevated D-dimer, pending read. 04/10/20 05:47 CTA no PE, multiple nodules that are consistent with prior CT. Given 80mg enoxaparin. Will admit for ACS evaluation to TELE/OBS under Dr. Duran. 04/10/20 06:[address] Duran, discussed case, would like consult to bead stringer Dr. Bonilla, accepts to tele for admission. Discharge - Discharge Information Problems reviewed: Yes Clinical Impression/Diagnosis: Chest pain Qualifiers: Chest pain type: unspecified Qualified Code(s): R07.9 - Chest pain, unspecified Condition: Stable Disposition: HOME - Admission Yes - Follow up/Referral - Patient Discharge Instructions - Post Discharge Activity
[2020-04-10 01:12] LABS: BASO % 0.7 % (0-2.0); HEMATOCRIT 36.3 % (32.4-45.2); HEMOGLOBIN 11.8 GM/dL (10.7-15.3); LYMPH % 17.5 % (8-40); MCH 29.4 pg (25.7-33.7); MCHC 32.5 g/dl (32.0-36.0); MEAN CELL VOLUME 90.4 fl (80-96); MEAN PLT VOLUME 8.2 fl (7.5-11.1); NEUT % 76.8 % (42.8-82.8); PLATELET COUNT 355 K/MM3 (134-434); RBC 4.02 M/mm3 (3.60-5.2); RDW 14.8 % (11.6-15.6); WHITE BLOOD COUNT 11.9 K/mm3 (4.0-10.0)
[2020-04-10 01:34] LABS: ALBUMIN 2.9 g/dl (3.4-5.0); ALK PHOS 121 U/L (45-117); ANION GAP 8 MMOL/L (8-16); BILIRUBIN,TOTAL 0.2 mg/dL (0.2-1); BLOOD UREA NITROGEN 11.8 mg/dL (7-18); CALCIUM 9.4 mg/dL (8.5-10.1); CHLORIDE 104 mmol/L (98-107); CO2 27 mmol/L (21-32); GLUCOSE,RANDOM 134 mg/dL (74-106); N-TERMINAL BNP 397.2 pg/ml (5-125); POTASSIUM 3.4 mmol/L (3.5-5.1); SGOT/AST 18 U/L (15-37); SGPT/ALT 13 U/L (13-61); SODIUM 140 mmol/L (136-145); TOT PROT 7.1 g/dl (6.4-8.2)
[2020-04-10 02:40] LABS: INR 1.99 (0.83-1.09); PROTHROMBIN TIME (PATIENT) 23.6 SEC (9.7-13.0)
[2020-04-10 02:42] LABS: ACTIVATED PTT 34.6 SECONDS (25.2-36.5)
[2020-04-10] MEDS ORDERED: ENOXAPARIN NA (PORCINE) 80 MG/0.8 ML DISP.SYRIN SQ ONE ×2 (03:28→05:04)
--- NOTE | 2020-04-10 03:28 | PDOC ---
Documentation entered by Cisco Arredondo SCRIBE, acting as scribe for Naima Lange MD. Naima Lange MD: This documentation has been prepared by the Maria Elena ruiz Xhesika, SCRIBE, under my direction and personally reviewed by me in its entirety. I confirm that the documentation accurately reflects all work, treatment, procedures, and medical decision making performed by me. Attending Attestation - Resident Resident Name: Antoine Tiwari - ED Attending Attestation I have performed the following: I have examined & evaluated the patient, The case was reviewed & discussed with the resident, I agree w/resident's findings & plan - HPI HPI: 04/10/20 00:33 The patient is a 74 year old female with a significant past medical history of asthma, CAD, COPD, rectal bleeding, hypertension, hyperlipidemia, epilepsy, and hypothyroidism who presents to the emergency department complaining of chest pain and shortness of breath. The patient denies headache, dizziness, fevers, chills, nausea, vomiting, diarrhea, and constipation. Denies dysuria, frequency, urgency, and hematuria. Allergies: NKDA Past surgical history: Lung Biopsy PCP: Dr. Lewis ([phone]) Digital Composer: Dr. Duran - Physicial Exam PE: 04/10/20 01:44 GENERAL: Awake, alert, and fully oriented, in no acute distress HEAD: No signs of trauma NECK: Normal ROM, supple, no lymphadenopathy, JVD, or masses LUNGS: Breath sounds equal, clear to auscultation bilaterally. No wheezes, and no crackles HEART: Regular rate and rhythm, normal S1 and S2, no murmurs, rubs or gallops CHEST: +L sided chest pain ABDOMEN: Soft, nontender, normoactive bowel sounds. No guarding, no rebound. No masses EXTREMITIES: Normal range of motion, no pitting edema. No clubbing or cyanosis. No cords, erythema, or tenderness NEUROLOGICAL: Cranial nerves II through XII grossly intact. SKIN: Warm, Dry, normal turgor, no rashes lesions noted. - Medical Decision Making 04/10/20 03:27 Pt has a d-dimer of 2300; we will CTA to look for pulmonary embolisms. 04/10/20 05:47 Patient Name: HEIDY LEE THIS IS A PRELIMINARY REPORT DATE OF SERVICE: 2020-04-10 04:37:54 IMAGES: [id number] EXAM: CT ANGIOGRAM CHEST WITH CONTRAST AND 3D ANGIOGRAPHIC INSTRUCTIONS HISTORY: 74-Year-Old Female d-Dimer 2300 Assessed For Pulmonary Artery Embolism. COMPARISON: None. TECHNIQUE: Following 75 mL Omnipaque 350 IV contrast administration thin axial images were obtained through the chest for pulmonary artery evaluation by pulmonary embolism protocol with images transmitted to a remote workstation for 3-D post-processing included coronal and sagittal reformatted 3-D MIP images which were permanently stored in the patient medical record PACS. FINDINGS: No large central pulmonary artery embolism. Evaluation of the distal segmental branches are limited by artifact. No aortic aneurysm or dissection. Arteriosclerosis of the aorta and aortic branches. Calcified coronary artery arteriosclerosis. Left lower lobe nonspecific 4 x 3.7 x 1.4 cm mass may be benign or malignant. Right middle lobe nonspecific 8 mm lung nodule on axial image 59. Right middle lobe nonspecific 9 mm lung nodule on axial image 59. Subcentimeter mediastinal and hilar lymph nodes noted. Cholelithiasis with gallbladder distention borderline gallbladder wall thickening. Diverticulosis. Degenerative disc disease. Age-indeterminate 50% superior endplate compression fracture of L1. Moderate to severe neural foraminal narrowing in the upper lumbar levels. IMPRESSION: No large central pulmonary artery embolism. Arteriosclerosis of the aorta and aortic branches. Calcified coronary artery arteriosclerosis. Left lower lobe nonspecific 4 x 3.7 x 1.4 cm mass may be benign or malignant. If clinically indicated follow-up outpatient evaluation may be needed. Right middle lobe nonspecific 8 mm lung nodule, right middle lobe nonspecific 9 mm lung nodule may be benign or malignant. If clinically indicated follow-up outpatient evaluation may be needed. Subcentimeter mediastinal and hilar lymph nodes noted. Cholelithiasis with gallbladder distention borderline gallbladder wall thickening. Diverticulosis. Age-indeterminate 50% superior endplate compression fracture of L1. Moderate to severe neural foraminal narrowing in the upper lumbar levels 04/11/20 22:57 Pt admitted to the telemetry unit Discharge - Discharge Information Problems reviewed: Yes Clinical Impression/Diagnosis: Chest pain Qualifiers: Chest pain type: unspecified Qualified Code(s): R07.9 - Chest pain, unspecified Condition: Stable - Follow up/Referral - Patient Discharge Instructions - Post Discharge Activity
[2020-04-10] MEDS ORDERED: ASPIRIN COATED 81 MG TABLET.EC ONE (11:55)
[2020-04-10] MEDS ORDERED: metoPROLOL SUCCINATE 25 MG TAB.SR.24H (FP) ONE (11:56)
[2020-04-10] MEDS ORDERED: TOPIRAMATE 25 MG TABLET ONE (11:56)
[2020-04-10] MEDS: ASPIRIN COATED 81 MG TABLET.EC PO SCH (12:00)
[2020-04-10] MEDS: metoPROLOL SUCCINATE 25 MG TAB.SR.24H (FP) PO SCH (12:00)
[2020-04-10] MEDS: TOPIRAMATE 25 MG TABLET PO SCH ×2 (12:00→22:33)
--- NOTE | 2020-04-10 14:19 | HP ---
Admitting History and Physical - Primary Care Physician PCP: Garett Duran - Admission Chief Complaint: sharp lower chest pain History of Present Illness: 74 year old female with a significant past medical history of episodic chest pain syndrome, stable CAD, COPD, hypertension, hyperlipidemia, epilepsy, and hypothyroidism who presents to the emergency department complaining of sudden onset of fixed chest pain and shortness of breath that began last PM and unrelenting. She had various similar episodes in the past which has always led her to go to the ER, and w/u never revealed (+) findings. As it often happens, the CP subsides completely. She denied any strenuous activity, trauma to chest, antecedent SOB, ssweats, palpitations, cough episodes, and no associated abd pains, n-v. She has little if any pain at this moment. 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) Musculoskeletal: Yes: Chronic low back pain, Osteoarthritis ENT: Yes: Allergic Rhinitis Endocrine: Yes: Hypothyroidism - Past Surgical History Past Surgical History: Yes: Breast Biopsy, Joint Replacement (Rt knee), Thoracotomy - Smoking History Smoking history: Former smoker Have you smoked in the past 12 months: No Aproximately how many cigarettes per day: 0 If you are a former smoker, when did you quit?: 1988 - Alcohol/Substance Use Hx Alcohol Use: No History of Substance Use: reports: None - Social History Usual Living Arrangement: Yes: Other (with sister) ADL: Family Assistance History of Recent Travel: No Home Medications - Allergies Allergies/Adverse Reactions: Allergies Allergy/AdvReac Type Severity Reaction Status Date / Time No Known Drug Allergies Allergy Verified 04/09/20 23:24 - Home Medications Home Medications: Ambulatory Orders Anastrozole [Arimidex -] 1 mg PO DAILY 12/19/17 Atorvastatin Ca [Lipitor] 40 mg PO DAILY 12/19/17 Budesonide/Formeterol Fumarate [SYMBICORT 160/4.5mcg -] 2 inh PO BID 12/19/17 Furosemide [Lasix] 40 mg PO DAILY 12/19/17 Levothyroxine [Synthroid -] 75 mcg PO DAILY 12/19/17 Metoprolol Tartrate 25 mg PO DAILY 12/19/17 Nitroglycerin Sublingual [Nitrostat -] 0.4 mg SL PRN PRN 12/19/17 Topiramate 25 mg PO BID 12/19/17 Albuterol Sulfate Inhaler - [Ventolin HFA Inhaler -] 2 puff IH Q4H PRN inhaler 12/20/17 Aspirin [ASA -] 81 mg PO DAILY tab.chew 12/20/17 Warfarin Na [Coumadin -] 2 mg PO DAILY@1800 tablet 01/22/20 Family Medical History Family History: Unremarkable Review of Systems - Review of Systems Constitutional: reports: No Symptoms Eyes: reports: No Symptoms HENT: reports: No Symptoms Neck: reports: No Symptoms Cardiovascular: reports: Chest Pain (see HPI) Respiratory: reports: No Symptoms Gastrointestinal: reports: No Symptoms Genitourinary: reports: No Symptoms Breasts: reports: No Symptoms Reported Musculoskeletal: reports: No Symptoms Integumentary: reports: No Symptoms Neurological: reports: No Symptoms Endocrine: reports: No Symptoms Hematology/Lymphatic: reports: No Symptoms Psychiatric: reports: No Symptoms Physical Examination Vital Signs: Vital Signs Temperature 98.1 F 04/10/20 08:58 Pulse Rate 67 04/10/20 08:58 Respiratory Rate 14 04/10/20 05:18 Blood Pressure 116/49 L 04/10/20 08:58 O2 Sat by Pulse Oximetry (%) 100 04/10/20 08:58 Constitutional: Yes: Well Nourished, No Distress, Calm Eyes: Yes: Conjunctiva Clear, EOM Intact HENT: Yes: WNL Neck: Yes: WNL Cardiovascular: Yes: Regular Rate and Rhythm Respiratory: Yes: Diminished (unlabored resp) Gastrointestinal: Yes: Normal Bowel Sounds, Abdomen, Obese ...Rectal Exam: Yes: Deferred Breast(s): Yes: WNL Musculoskeletal: Yes: WNL, Other (surg scar Rt knee) Edema: No Peripheral Pulses WNL: Yes Peripheral Pulses: Left Doralis Pedis: 1+, Right Dorsalis Pedis: 1+ Integumentary: Yes: WNL Neurological: Yes: WNL, Alert, Oriented ...Motor Strength: WNL Psychiatric: Yes: WNL Labs: CBC, BMP 04/10/20 00:15 04/10/20 00:15 CBCD WBC 11.9 K/mm3 (4.0-10.0) H 04/10/20 00:15 RBC 4.02 M/mm3 (3.60-5.2) 04/10/20 00:15 Hgb 11.8 GM/dL (10.7-15.3) 04/10/20 00:15 Hct 36.3 % (32.4-45.2) D 04/10/20 00:15 MCV 90.4 fl (80-96) 04/10/20 00:15 MCHC 32.5 g/dl (32.0-36.0) 04/10/20 00:15 RDW 14.8 % (11.6-15.6) 04/10/20 00:15 Plt Count 355 K/MM3 (134-434) D 04/10/20 00:15 MPV 8.2 fl (7.5-11.1) 04/10/20 00:15 CMP Sodium 140 mmol/L (136-145) 04/10/20 00:15 Potassium 3.4 mmol/L (3.5-5.1) L 04/10/20 00:15 Chloride 104 mmol/L (98-107) 04/10/20 00:15 Carbon Dioxide 27 mmol/L (21-32) 04/10/20 00:15 Anion Gap 8 MMOL/L (8-16) 04/10/20 00:15 BUN 11.8 mg/dL (7-18) 04/10/20 00:15 Creatinine 1.0 mg/dL (0.55-1.3) 04/10/20 00:15 Random Glucose 134 mg/dL (74-106) H 04/10/20 00:15 Calcium 9.4 mg/dL (8.5-10.1) 04/10/20 00:15 Total Bilirubin 0.2 mg/dL (0.2-1) 04/10/20 00:15 AST 18 U/L (15-37) 04/10/20 00:15 ALT 13 U/L (13-61) 04/10/20 00:15 Alkaline Phosphatase 121 U/L (45-117) H 04/10/20 00:15 Total Protein 7.1 g/dl (6.4-8.2) 04/10/20 00:15 Albumin 2.9 g/dl (3.4-5.0) L 04/10/20 00:15 CARDIAC ENZYMES Creatine Kinase 50 U/L (26-192) 04/10/20 00:15 Troponin I < 0.02 ng/ml (0.00-0.05) 04/10/20 00:15 Imaging - Results Chest X-ray: Report Reviewed Cat Scan: Report Reviewed EKG: Report Reviewed Problem List - Problems (1) Chest pain Assessment/Plan: occurs w/o any direct relation to anything else which has been the usual presen tation. Seen in the ER in the past for same presentation but w/o any clear explanation. This may not be of cardiac origin (although she does have heart Dz); could be MSK and or pleural based. She does not exhibit signs of astham or COPD exacerbation, no resp splinting, or abnl heart sounds. She does not have sternal tenderness, but has some hypersensitivity on the inner lower costal margain. No overlying rashes, and no upper abd pain/tenderness. PLAN: Will check serial enzymes and observe for any recurrences. Code(s): R07.9 - CHEST PAIN, UNSPECIFIED Qualifiers: Chest pain type: unspecified Qualified Code(s): R07.9 - Chest pain, unspecified (2) Neoplasm of uncertain behavior of lung Assessment/Plan: not likely to be malignant, but lesions described a bit different as per the Radiologist's interpretation. She states that she was recently seen by her Thoracic surgeon and was told that "all was okay". Unsure if any imaging study was indicated. Not sure if any these lesions are in any way associated with her episodic chest pains. Code(s): D38.1 - NEOPLASM OF UNCERTAIN BEHAVIOR OF TRACHEA, BRONCHUS AND LUNG (3) Atrial fibrillation Assessment/Plan: HR controlled. Will cont the BB and a/c Code(s): I48.91 - UNSPECIFIED ATRIAL FIBRILLATION Qualifiers: Atrial fibrillation type: paroxysmal Qualified Code(s): I48.0 - Paroxysmal atrial fibrillation (4) Hypothyroidism Assessment/Plan: euthyroid; check TSH Code(s): E03.9 - HYPOTHYROIDISM, UNSPECIFIED Qualifiers: Hypothyroidism type: acquired Qualified Code(s): E03.9 - Hypothyroidism, unspecified (5) Status post total knee replacement, right Assessment/Plan: doing "well" able to ambulate freely Code(s): Z96.651 - PRESENCE OF RIGHT ARTIFICIAL KNEE JOINT (6) Long-term (current) use of anticoagulants, INR goal 2.0-3.0 Assessment/Plan: maintain on a/c; check INR Code(s): Z79.01 - SUPERVISOR PURIFICATION (CURRENT) USE OF ANTICOAGULANTS (7) Seizure disorder Assessment/Plan: seizure free with Topiramate Code(s): G40.909 - EPILEPSY, UNSP, NOT INTRACTABLE, WITHOUT STATUS EPILEPTICUS (8) Gall bladder stones Assessment/Plan: abd exam is benign, as this is not the cause of her CP episodes Code(s): K80.20 - CALCULUS OF GALLBLADDER W/O CHOLECYSTITIS W/O OBSTRUCTION (9) LBBB (left bundle branch block) Assessment/Plan: not new Code(s): I44.7 - LEFT BUNDLE-BRANCH BLOCK, UNSPECIFIED Assessment/Plan 74 YO F appearing stable at present who presented with sudden onset of CP and SOB now abated who will need 24H obs; mgmt as stated above. ~~~~~~~~~~~~~~~~~~~~~~~~~~~` Dr Duran
--- NOTE | 2020-04-10 14:38 | CON.CARD ---
Consult Consult Specialty:: cardiology Reason for Consultation:: chest pain and dyspnea - History of Present Illness Chief Complaint: PT A&Ox3; no dyspnea; no chest pain (until palpation of left sternal chest wall, which reproduces admission pain) History of Present Illness: Ms. Conley is a 74 year old female with a significant past medical history of CH F (low-normal LVEF 2018 ECHO), breast CA with metastases, asthma, ?CAD (stress MIBI 07/2016: no ischemia), COPD, rectal bleeding, hypertension, hyperlipidemia, epilepsy, obesity, and hypothyroidism who presents to the emergency department complaining of chest pain and shortness of breath. The patient denies headache, dizziness, fevers, chills, nausea, vomiting, diarrhea, and constipation. Denies dysuria, frequency, urgency, and hematuria. Allergies: NKDA Past surgical history: Lung Biopsy PCP: Dr. Duran Breakfast Manager: Dr. 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 Cardio/Vascular: Yes: AFIB, CAD, HTN, Hyperlipdemia Pulmonary: Yes: Asthma, COPD Gastrointestinal: Yes: Constipation ...: No Musculoskeletal: Yes: Chronic low back pain, Osteoarthritis ENT: Yes: Allergic Rhinitis Endocrine: Yes: Hypothyroidism - Past Surgical History Past Surgical History: Yes: Breast Biopsy, Joint Replacement (Rt knee), Thoracotomy - Alcohol/Substance Use Hx Alcohol Use: No History of Substance Use: reports: None - Smoking History Smoking history: Former smoker Have you smoked in the past 12 months: No Aproximately how many cigarettes per day: 0 If you are a former smoker, when did you quit?: 1988 - Social History Usual Living Arrangement: With Child ADL: Family Assistance History of Recent Travel: No Home Medications - Allergies Allergies/Adverse Reactions: Allergies Allergy/AdvReac Type Severity Reaction Status Date / Time No Known Drug Allergies Allergy Verified 04/09/20 23:24 - Home Medications Home Medications: Ambulatory Orders Anastrozole [Arimidex -] 1 mg PO DAILY 12/19/17 Atorvastatin Ca [Lipitor] 40 mg PO DAILY 12/19/17 Budesonide/Formeterol Fumarate [SYMBICORT 160/4.5mcg -] 2 inh PO BID 12/19/17 Furosemide [Lasix] 40 mg PO DAILY 12/19/17 Levothyroxine [Synthroid -] 75 mcg PO DAILY 12/19/17 Metoprolol Tartrate 25 mg PO DAILY 12/19/17 Nitroglycerin Sublingual [Nitrostat -] 0.4 mg SL PRN PRN 12/19/17 Topiramate 25 mg PO BID 12/19/17 Albuterol Sulfate Inhaler - [Ventolin HFA Inhaler -] 2 puff IH Q4H PRN inhaler 12/20/17 Aspirin [ASA -] 81 mg PO DAILY tab.chew 12/20/17 Warfarin Na [Coumadin -] 2 mg PO DAILY@1800 tablet 01/22/20 Family Medical History Family History: Unremarkable Review of Systems - Review of Systems Constitutional: reports: No Symptoms Eyes: reports: No Symptoms HENT: reports: No Symptoms Neck: reports: No Symptoms Cardiovascular: reports: Chest Pain Respiratory: reports: No Symptoms Gastrointestinal: reports: No Symptoms Genitourinary: reports: No Symptoms Breasts: reports: No Symptoms Reported Musculoskeletal: reports: Joint Pain Integumentary: reports: No Symptoms Neurological: reports: No Symptoms Endocrine: reports: No Symptoms Hematology/Lymphatic: reports: No Symptoms Psychiatric: reports: No Symptoms - Risk Factors Known Risk Factors: Yes: Age (CHF; breast CA), Hypertension, Physical Inact ivity, Other (obesity) Vital Signs: Vital Signs Temperature 98.1 F 04/10/20 08:58 Pulse Rate 67 04/10/20 08:58 Respiratory Rate 14 04/10/20 05:18 Blood Pressure 116/49 L 04/10/20 08:58 O2 Sat by Pulse Oximetry (%) 100 04/10/20 08:58 Constitutional: Yes: Calm Eyes: Yes: WNL HENT: Yes: WNL Neck: Yes: WNL Respiratory: Yes: WNL Gastrointestinal: Yes: Abdomen, Obese Renal/: No: Anuria Cardiovascular: Yes: Regular Rate and Rhythm Heart Sounds: Yes: S1, Split S2 Murmur: Yes: Systolic Murmur, Grade 2 Musculoskeletal: Yes: Joint Stiffness Extremities: Yes: Cool Edema: No Peripheral Pulses WNL: Yes Integumentary: Yes: WNL Neurological: Yes: Alert, Oriented Psychiatric: Yes: WNL - Other Data Labs, Other Data: CBC, BMP 04/10/20 00:15 04/10/20 00:15 INR, PTT INR 1.99 (0.83-1.09) H 04/10/20 00:15 Troponin, BNP 04/10/20 00:15 Troponin I < 0.02 B-Natriuretic Peptide 397.2 H Troponin, BNP 04/10/20 00:15 Troponin I < 0.02 B-Natriuretic Peptide 397.2 H Abnormal Lab Results 04/11/20 04/11/20 07:20 07:20 PT with INR 28.10 H INR 2.36 H Anion Gap 5 L Imaging - Results Chest X-ray: Image Reviewed EKG: Image Reviewed Assessment/Plan Atypical recurrent chest pain (multiple admissions) that is reproduced with palpation Breast CA with mets HTN PAF obesity low-normal LVEF 2018 ECHO hypothyroidism Hyperlipidemia hypokalemia Pl: TNi < 0.02; f/u serially EKG; telemetry F/u TSH, lipids Replete electrolytes ECHO for LVEF, chamber sizes, valve status Multiple risks for CAD: consider stress MIBI (last in [facility] 07/2016: no ischemia) after evaluating overall health prognosis F/u breast CA, pulmonary nodules. On metoprolol ER for HR; warfarin for anticoagulation.
[2020-04-10] MEDS ORDERED: POTASSIUM CHLORIDE TABS 10 MEQ TABLET.ER (FP) PO ONE (14:47)
[2020-04-10] MEDS ORDERED: POTASSIUM CHLORIDE TABS 10 MEQ TABLET.ER (FP) ONE (15:57)
[2020-04-10] MEDS: ANASTROZOLE 1 MG TABLET PO SCH (16:06)
[2020-04-10] MEDS ORDERED: WARFARIN NA 1 MG TABLET ONE (18:47)
[2020-04-10] MEDS: WARFARIN NA 2 MG TABLET PO SCH (18:51)
[2020-04-11 02:42] VITALS: BMI 31.4
[2020-04-11] MEDS: LEVOTHYROXINE NA 75 MCG TABLET (FP) PO SCH (06:12)
[2020-04-11 08:18] LABS: INR 2.36 (0.83-1.09); PROTHROMBIN TIME (PATIENT) 28.1 SEC (9.7-13.0)
[2020-04-11 08:49] LABS: ANION GAP 5 MMOL/L (8-16); BLOOD UREA NITROGEN 11.8 mg/dL (7-18); CALCIUM 8.9 mg/dL (8.5-10.1); CHLORIDE 107 mmol/L (98-107); CHOLESTEROL 132 mg/dL (50-200); CO2 30 mmol/L (21-32); CREATININE 0.9 mg/dL (0.55-1.3); GLUCOSE,RANDOM 88 mg/dL (74-106); HDL CHOLESTEROL 42 mg/dL (40-60); LDL CHOLESTEROL (ONLY SJRH) 66 mg/dL (5-100); SODIUM 142 mmol/L (136-145); TRIGLYCERIDES 86 mg/dL (0-150)
[2020-04-11] MEDS ORDERED: PT OWN MED DRAWER 7, Y5N ONE ×2 (09:36→15:21)
[2020-04-11] MEDS: TOPIRAMATE 25 MG TABLET PO SCH ×2 (10:00→21:29)
[2020-04-11] MEDS: metoPROLOL SUCCINATE 25 MG TAB.SR.24H (FP) PO SCH (10:00)
[2020-04-11] MEDS: ASPIRIN COATED 81 MG TABLET.EC PO SCH (10:01)
[2020-04-11] MEDS: FUROSEMIDE 20 MG TABLET (FP) PO SCH (10:01)
[2020-04-11] MEDS: ANASTROZOLE 1 MG TABLET PO SCH (10:01)
--- NOTE | 2020-04-11 13:11 | PN ---
Progress Note (short form) - Note Progress Note: Active Medications Acetaminophen (Tylenol -) 650 mg PO Q6H PRN PRN Reason: PAIN Anastrozole (Arimidex -) 1 mg PO DAILY ON LICENSE OF [facility] Last Admin: 04/11/20 10:01 Dose: 1 mg Documented by: Aspirin (Ecotrin -) 81 mg PO DAILY ON LICENSE OF [facility] Last Admin: 04/11/20 10:01 Dose: 81 mg Documented by: Benzocaine/Menthol (Cepacol Lozenge -) 1 each MM PRN PRN PRN Reason: SORE THROAT Furosemide (Lasix -) 20 mg PO DAILY ON LICENSE OF [facility] Last Admin: 04/11/20 10:01 Dose: 20 mg Documented by: Levothyroxine Sodium (Synthroid -) 75 mcg PO DAILY@0700 ON LICENSE OF [facility] Last Admin: 04/11/20 06:12 Dose: 75 mcg Documented by: Metoprolol Succinate (Toprol Xl -) 12.5 mg PO DAILY ON LICENSE OF [facility] Last Admin: 04/11/20 10:00 Dose: 12.5 mg Documented by: Phenol/Menthol (Chloraseptic -) 1 spray MM Q6HPO PRN PRN Reason: SORE THROAT Topiramate (Topamax -) 25 mg PO BID ON LICENSE OF [facility] Last Admin: 04/11/20 10:00 Dose: 25 mg Documented by: Warfarin Sodium (Coumadin -) 4 mg PO DAILY@1800 ON LICENSE OF [facility] Last Admin: 04/10/20 18:51 Dose: 4 mg Documented by: Laboratory Results - last 24 hr 04/10/20 04/10/20 04/11/20 05:08 18:30 07:20 PT with INR 28.10 H INR 2.36 H Sodium Potassium Chloride Carbon Dioxide Anion Gap BUN Creatinine Est GFR (CKD-EPI)AfAm Est GFR (CKD-EPI)NonAf Random Glucose Calcium Creatine Kinase 46 Troponin I < 0.02 Triglycerides Cholesterol Total LDL Cholesterol HDL Cholesterol TSH COVID-19 ([place]) Not detected 04/11/20 07:20 PT with INR INR Sodium 142 Potassium 4.0 Chloride 107 Carbon Dioxide 30 Anion Gap 5 L BUN 11.8 Creatinine 0.9 Est GFR (CKD-EPI)AfAm 73.00 Est GFR (CKD-EPI)NonAf 62.99 Random Glucose 88 Calcium 8.9 Creatine Kinase 32 Troponin I < 0.02 Triglycerides 86 Cholesterol 132 Total LDL Cholesterol 66 HDL Cholesterol 42 TSH 2.33 COVID-19 ([facility]) Vital Signs Temperature 97.9 F 04/11/20 10:00 Pulse Rate 72 04/11/20 10:00 Respiratory Rate 18 04/11/20 10:00 Blood Pressure 122/59 L 04/11/20 10:00 O2 Sat by Pulse Oximetry (%) 97 04/11/20 10:00 CC: sore throat; no tongue swelling or SOB; CP much better ````````````````````````````````````````````` skin--eschar Rt nasal alae eyes--non injected lungs--BS distant heart--RR abd--benign chest--no mila tenderness neuro--alert' lucid; coherent to baseline; no overt deficits ````````````````````````````````````````````````````` Summ > Sore throat--new onset, as of this AM; pain on swallowing; Check C&S' Rx cepacol or chlorseptic spray > CP--much improved; complete series of Trop still pending; if all negative may d/c in AM if okay by Cardiology > Htn--BP okay > Hypothyroid--TSH okay > On A/c--INR okay ~~~~~~~~~~~~~~~~~ Dr Duran Problem List - Problems (1) Chest pain Code(s): R07.9 - CHEST PAIN, UNSPECIFIED Qualifiers: Chest pain type: unspecified Qualified Code(s): R07.9 - Chest pain, unspecified (2) Neoplasm of uncertain behavior of lung Code(s): D38.1 - NEOPLASM OF UNCERTAIN BEHAVIOR OF TRACHEA, BRONCHUS AND LUNG (3) Atrial fibrillation Code(s): I48.91 - UNSPECIFIED ATRIAL FIBRILLATION Qualifiers: Atrial fibrillation type: paroxysmal Qualified Code(s): I48.0 - Paroxysmal atrial fibrillation (4) Hypothyroidism Code(s): E03.9 - HYPOTHYROIDISM, UNSPECIFIED Qualifiers: Hypothyroidism type: acquired Qualified Code(s): E03.9 - Hypothyroidism, unspecified (5) Status post total knee replacement, right Code(s): Z96.651 - PRESENCE OF RIGHT ARTIFICIAL KNEE JOINT (6) Long-term (current) use of anticoagulants, INR goal 2.0-3.0 Code(s): Z79.01 - SKILLED NURSING (CURRENT) USE OF ANTICOAGULANTS (7) Seizure disorder Code(s): G40.909 - EPILEPSY, UNSP, NOT INTRACTABLE, WITHOUT STATUS EPILEPTICUS (8) Gall bladder stones Code(s): K80.20 - CALCULUS OF GALLBLADDER W/O CHOLECYSTITIS W/O OBSTRUCTION (9) LBBB (left bundle branch block) Code(s): I44.7 - LEFT BUNDLE-BRANCH BLOCK, UNSPECIFIED
[2020-04-11] MEDS: ACETAMINOPHEN 325 MG TABLET (FP) PO PRN (14:07)
--- NOTE | 2020-04-11 14:29 | PN ---
Progress Note, Physician Chief Complaint: Pt A&Ox3; no chest pain or dyspnea History of Present Illness: Ms. Conley is a 74 year old female with a significant past medical history of CHF (low-normal LVEF 2018 ECHO), breast CA with metastases, LBBB, asthma, ?CAD (stress MIBI 07/2016: no ischemia), COPD, rectal bleeding, hypertension, hyperlipidemia, epilepsy, obesity, and hypothyroidism who presents to the emergency department complaining of chest pain and shortness of breath. The patient denies headache, dizziness, fevers, chills, nausea, vomiting, diarrhea, and constipation. Denies dysuria, frequency, urgency, and hematuria. Allergies: NKDA Past surgical history: Lung Biopsy PCP: Dr. Duran Kitchen Steward/Stewardess: Dr. Clarence Bonilla - Current Medication List Current Medications: Active Medications Acetaminophen (Tylenol -) 650 mg PO Q6H PRN PRN Reason: PAIN 1-3 Last Admin: 04/11/20 14:07 Dose: 650 mg Documented by: Anastrozole (Arimidex -) 1 mg PO DAILY [facility] Last Admin: 04/11/20 10:01 Dose: 1 mg Documented by: Aspirin (Ecotrin -) 81 mg PO DAILY [facility] Last Admin: 04/11/20 10:01 Dose: 81 mg Documented by: Benzocaine/Menthol (Cepacol Lozenge -) 1 each MM PRN PRN PRN Reason: SORE THROAT Furosemide (Lasix -) 20 mg PO DAILY [facility] Last Admin: 04/11/20 10:01 Dose: 20 mg Documented by: Levothyroxine Sodium (Synthroid -) 75 mcg PO DAILY@0700 [facility] Last Admin: 04/11/20 06:12 Dose: 75 mcg Documented by: Metoprolol Succinate (Toprol Xl -) 12.5 mg PO DAILY [facility] Last Admin: 04/11/20 10:00 Dose: 12.5 mg Documented by: Phenol/Menthol (Chloraseptic -) 1 spray MM Q6HPO PRN PRN Reason: SORE THROAT Topiramate (Topamax -) 25 mg PO BID [facility] Last Admin: 04/11/20 10:00 Dose: 25 mg Documented by: Warfarin Sodium (Coumadin -) 4 mg PO DAILY@1800 [facility] Last Admin: 04/10/20 18:51 Dose: 4 mg Documented by: - Objective Vital Signs: Vital Signs Temperature 98.3 F 04/11/20 13:29 Pulse Rate 74 04/11/20 13:29 Respiratory Rate 18 04/11/20 13:29 Blood Pressure 123/53 L 04/11/20 13:29 O2 Sat by Pulse Oximetry (%) 97 04/11/20 10:00 Constitutional: Yes: Calm Eyes: Yes: WNL HENT: Yes: WNL Neck: Yes: WNL Cardiovascular: Yes: S1, S2 (split) Respiratory: Yes: Regular Gastrointestinal: Yes: Soft ...Rectal Exam: Yes: Deferred Genitourinary: No: Anuria Breast(s): Yes: Other Musculoskeletal: Yes: Muscle Weakness Extremities: Yes: Cool Edema: Yes Edema: LLE: Trace, RLE: Trace Peripheral Pulses WNL: Yes Integumentary: Yes: WNL Neurological: Yes: Alert, Oriented, Weakness Psychiatric: Yes: WNL Labs: CBC, BMP 04/10/20 00:15 04/11/20 07:20 INR, PTT INR 2.36 (0.83-1.09) H 04/11/20 07:20 Abnormal Lab Results 04/11/20 04/11/20 07:20 07:20 PT with INR 28.10 H INR 2.36 H Anion Gap 5 L - ....Imaging Chest X-ray: Image Reviewed EKG: Image Reviewed Assessment/Plan Atypical recurrent chest pain (multiple admissions) that is reproduced with palpation Breast CA with mets HTN PAF obesity low-normal LVEF 2018 ECHO hypothyroidism Hyperlipidemia hypokalemia leukocytosis New sore throat Pl: TNi < 0.02; f/u serially EKG; telemetry F/u TSH, lipids Replete electrolytes ECHO for LVEF, chamber sizes, valve status Multiple risks for CAD: consider stress MIBI (last in [facility] 07/2016: no ischemia) after evaluating overall health prognosis. However, as discussed with Dr. Duran, pt says she has had both ECHO and stress MIBI done as outpt at Dr. Bonilla's office within the past few months. Will check in am. F/u breast CA, pulmonary nodules. On metoprolol ER for HR; warfarin for anticoagulation. F/u w/u for sore throat (mild leukocytosis on admission; afebrile).
[2020-04-11] MEDS: BENZOCAINE/MENTH/CETYLPYRD CL 1 EACH LOZENGE MM PRN (15:00)
[2020-04-11] MEDS: WARFARIN NA 2 MG TABLET PO SCH (17:28)
[2020-04-11] MEDS: PHENOL 177 ML SPRAY BOTTLE MM PRN (21:30)
[2020-04-12] MEDS: ACETAMINOPHEN 325 MG TABLET (FP) PO PRN ×3 (01:53→21:11)
[2020-04-12] MEDS: LEVOTHYROXINE NA 75 MCG TABLET (FP) PO SCH (06:03)
[2020-04-12 07:43] LABS: INR 3.3 (0.83-1.09); PROTHROMBIN TIME (PATIENT) 39.4 SEC (9.7-13.0)
[2020-04-12] MEDS ORDERED: PT OWN MED DRAWER 7, Y5N ONE (08:29)
--- NOTE | 2020-04-12 08:58 | PN ---
Progress Note, Physician History of Present Illness: Atypical, reproducible and post-tussive chest discomfort improved, reports sore throat, denies dyspnea. Most recent office visit 03/26/2020. - Current Medication List Current Medications: Active Medications Acetaminophen (Tylenol -) 650 mg PO Q6H PRN PRN Reason: PAIN 1-3 Last Admin: 04/12/20 01:53 Dose: 650 mg Documented by: Anastrozole (Arimidex -) 1 mg PO DAILY [facility] Last Admin: 04/11/20 10:01 Dose: 1 mg Documented by: Aspirin (Ecotrin -) 81 mg PO DAILY [facility] Last Admin: 04/11/20 10:01 Dose: 81 mg Documented by: Benzocaine/Menthol (Cepacol Lozenge -) 1 each MM PRN PRN PRN Reason: SORE THROAT Last Admin: 04/11/20 15:00 Dose: 1 each Documented by: Furosemide (Lasix -) 20 mg PO DAILY [facility] Last Admin: 04/11/20 10:01 Dose: 20 mg Documented by: Levothyroxine Sodium (Synthroid -) 75 mcg PO DAILY@0700 [facility] Last Admin: 04/12/20 06:03 Dose: 75 mcg Documented by: Metoprolol Succinate (Toprol Xl -) 12.5 mg PO DAILY [facility] Last Admin: 04/11/20 10:00 Dose: 12.5 mg Documented by: Phenol/Menthol (Chloraseptic -) 1 spray MM Q6HPO PRN PRN Reason: SORE THROAT Last Admin: 04/11/20 21:30 Dose: 1 spray Documented by: Topiramate (Topamax -) 25 mg PO BID [facility] Last Admin: 04/11/20 21:29 Dose: 25 mg Documented by: Warfarin Sodium (Coumadin -) 4 mg PO DAILY@1800 [facility] Last Admin: 04/11/20 17:28 Dose: 4 mg Documented by: - Objective Vital Signs: Vital Signs Temperature 98.3 F 04/12/20 06:00 Pulse Rate 79 04/12/20 06:00 Respiratory Rate 18 04/12/20 06:00 Blood Pressure 130/71 04/12/20 06:00 O2 Sat by Pulse Oximetry (%) 96 04/12/20 06:00 Constitutional: Yes: No Distress, Calm Neck: Yes: Supple Cardiovascular: Yes: Regular Rate and Rhythm Respiratory: Yes: Regular, CTA Bilaterally Gastrointestinal: Yes: Normal Bowel Sounds, Soft Edema: No Labs: CBC, BMP 04/10/20 00:15 04/11/20 07:20 INR, PTT INR 3.30 (0.83-1.09) H 04/12/20 06:30 - ....Imaging EKG: Report Reviewed (Tele: NSR) Problem List - Problems (1) Chest pain Code(s): R07.9 - CHEST PAIN, UNSPECIFIED Qualifiers: Chest pain type: unspecified Qualified Code(s): R07.9 - Chest pain, unspecified (2) LBBB (left bundle branch block) Code(s): I44.7 - LEFT BUNDLE-BRANCH BLOCK, UNSPECIFIED (3) Long-term (current) use of anticoagulants, INR goal 2.0-3.0 Code(s): Z79.01 - ADMINISTRATIVE TECH (CURRENT) USE OF ANTICOAGULANTS (4) Anticoagulated on Coumadin Code(s): Z51.81 - ENCOUNTER FOR THERAPEUTIC DRUG LEVEL MONITORING; Z79.01 - SENIOR CARE (CURRENT) USE OF ANTICOAGULANTS (5) Atrial fibrillation Code(s): I48.91 - UNSPECIFIED ATRIAL FIBRILLATION Qualifiers: Atrial fibrillation type: paroxysmal Qualified Code(s): I48.0 - Paroxysmal atrial fibrillation (6) CAD (coronary artery disease) Code(s): I25.10 - ATHSCL HEART DISEASE OF [place] CORONARY ARTERY W/O ANG PCTRS Qualifiers: Coronary Disease-Associated Artery/Lesion type: [place] artery [place] vs. transplanted heart: [place] heart Associated angina: without angina Qualified Code(s): I25.10 - Atherosclerotic heart disease of [place] coronary artery without angina pectoris (7) Hyperlipidemia Code(s): E78.5 - HYPERLIPIDEMIA, UNSPECIFIED Qualifiers: Hyperlipidemia type: pure hypercholesterolemia Qualified Code(s): E78.00 - Pure hypercholesterolemia, unspecified; E78.0 - Pure hypercholesterolemia (8) Hypertension Code(s): I10 - ESSENTIAL (PRIMARY) HYPERTENSION Qualifiers: Hypertension type: essential hypertension Qualified Code(s): I10 - Essential (primary) hypertension (9) Hypothyroidism Code(s): E03.9 - HYPOTHYROIDISM, UNSPECIFIED Qualifiers: Hypothyroidism type: acquired Qualified Code(s): E03.9 - Hypothyroidism, unspecified Assessment/Plan 08/25/2019 Mildly decreased LVEF 45-50%, HK of apical septum, basal inferoseptum, mid inferoseptum and mid-base anteroseptum, mild MR, TR, RCSP 36 mmHg 07/08/2018 Echo: LVH, dilated LA, mild MR and low normal LVEF 50% 11/12/2018 Adenosine Myoview: 48% 1. Atypical recurrent chest pain (multiple admissions) that is reproduced with palpation 2. LV systoluc dysfunction 3. CAD, angina pectoris 4. Hyperlipidemia 5. HTN 6. H/o PE on chronic coumadin with therapeutic INR 7. PAF->SR 8. hypothyroidism 9. Seizure d/o 10. hypokalemia resolved 11. leukocytosis 12. Sore throat Pl:1. Ruled out for MD, repleted K 2. Continue Lipitor 40 qd, Lasix 20 qd, Toprol XL 25 qd 3. Coumadin per INR, d/c ASA while on a/c as CAD is stable 4. Reviewed outpatient records, november d/c home from CV-standpoint with f/u in office
[2020-04-12] MEDS: TOPIRAMATE 25 MG TABLET PO SCH ×2 (09:08→21:11)
[2020-04-12] MEDS: BENZOCAINE/MENTH/CETYLPYRD CL 1 EACH LOZENGE MM PRN ×3 (09:08→21:12)
[2020-04-12] MEDS: FUROSEMIDE 20 MG TABLET (FP) PO SCH (09:08)
[2020-04-12] MEDS: metoPROLOL SUCCINATE 25 MG TAB.SR.24H (FP) PO SCH (09:09)
[2020-04-12] MEDS: PHENOL 177 ML SPRAY BOTTLE MM PRN (09:09)
[2020-04-12] MEDS: ASPIRIN COATED 81 MG TABLET.EC PO SCH (09:09)
[2020-04-12] MEDS: ANASTROZOLE 1 MG TABLET PO SCH (09:10)
--- NOTE | 2020-04-12 11:33 | EKG ---
Test Reason : Blood Pressure : / mmHG Vent. Rate : 080 BPM Atrial Rate : 080 BPM P-R Int : 180 ms QRS Dur : 144 ms QT Int : 392 ms P-R-T Axes : 070 012 086 degrees QTc Int : 452 ms NORMAL SINUS RHYTHM LEFT BUNDLE BRANCH BLOCK ABNORMAL ECG WHEN COMPARED WITH ECG OF 02-JAN-2020 11:19, NO SIGNIFICANT CHANGE WAS FOUND Confirmed by LINDSAY BARRERA MD ([id number]) on 04/12/2020 11:32:42 AM Referred By: Confirmed By:LINDSAY BARRERA MD
[2020-04-12] MEDS ORDERED: AZITHROMYCIN 250 MG TABLET PO ONE (14:00)
[2020-04-12] MEDS ORDERED: guaiFENesin 200 MG/10 ML 10 ML UNIT-DOSE CUPS PO PRN (14:01)
--- NOTE | 2020-04-12 14:07 | PN ---
Progress Note (short form) - Note Progress Note: Active Medications Acetaminophen (Tylenol -) 650 mg PO Q6H PRN PRN Reason: PAIN 1-3 Last Admin: 04/12/20 09:09 Dose: 650 mg Documented by: Anastrozole (Arimidex -) 1 mg PO DAILY [facility] Last Admin: 04/12/20 09:10 Dose: 1 mg Documented by: Azithromycin (Zithromax) 500 mg PO ONCE ONE Stop: 04/12/20 14:01 Benzocaine/Menthol (Cepacol Lozenge -) 1 each MM PRN PRN PRN Reason: SORE THROAT Last Admin: 04/12/20 09:08 Dose: 1 each Documented by: Furosemide (Lasix -) 20 mg PO DAILY [facility] Last Admin: 04/12/20 09:08 Dose: 20 mg Documented by: Guaifenesin (Robitussin -) 10 ml PO Q4H PRN PRN Reason: COUGH Levothyroxine Sodium (Synthroid -) 75 mcg PO DAILY@0700 [facility] Last Admin: 04/12/20 06:03 Dose: 75 mcg Documented by: Metoprolol Succinate (Toprol Xl -) 12.5 mg PO DAILY [facility] Last Admin: 04/12/20 09:09 Dose: 12.5 mg Documented by: Phenol/Menthol (Chloraseptic -) 1 spray MM Q6HPO PRN PRN Reason: SORE THROAT Last Admin: 04/12/20 09:09 Dose: 1 spray Documented by: Topiramate (Topamax -) 25 mg PO BID [facility] Last Admin: 04/12/20 09:08 Dose: 25 mg Documented by: Warfarin Sodium (Coumadin -) 1 mg PO DAILY@1800 [facility] Laboratory Results - last 24 hr 04/12/20 06:30 PT with INR 39.40 H INR 3.30 H Vital Signs Temperature 98.2 F 04/12/20 09:20 Pulse Rate 75 04/12/20 09:20 Respiratory Rate 18 04/12/20 09:20 Blood Pressure 121/79 04/12/20 09:20 O2 Sat by Pulse Oximetry (%) 98 04/12/20 10:00 CC: sore throat and a dry cough ```````````````````````````````` skin--no new lesions eyes--non injected lungs--diatant heart--RR neuro--alert, verbal, lucid to baseline `````````````````````````````````````` Summ > Pharyngitis--impropved Sx due to use of Lozenges; now has assoc dry cough, no SOB; C&S reveal no strept; s/p fever overnight; COVD tested negative. 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 Code(s): D38.1 - NEOPLASM OF UNCERTAIN BEHAVIOR OF [place], BRONCHUS AND LUNG (3) Atrial fibrillation Code(s): I48.91 - UNSPECIFIED ATRIAL FIBRILLATION Qualifiers: Atrial fibrillation type: paroxysmal Qualified Code(s): I48.0 - Paroxysmal atrial fibrillation (4) Hypothyroidism Code(s): E03.9 - HYPOTHYROIDISM, UNSPECIFIED Qualifiers: Hypothyroidism type: acquired Qualified Code(s): E03.9 - Hypothyroidism, unspecified (5) Status post total knee replacement, right Code(s): Z96.651 - PRESENCE OF RIGHT ARTIFICIAL KNEE JOINT (6) Long-term (current) use of anticoagulants, INR goal 2.0-3.0 Code(s): Z79.01 - [employer] (CURRENT) USE OF ANTICOAGULANTS (7) Seizure disorder Code(s): G40.909 - EPILEPSY, UNSP, NOT INTRACTABLE, WITHOUT STATUS EPILEPTICUS (8) Gall bladder stones Code(s): K80.20 - CALCULUS OF GALLBLADDER W/O CHOLECYSTITIS W/O OBSTRUCTION (9) LBBB (left bundle branch block) Code(s): I44.7 - LEFT BUNDLE-BRANCH BLOCK, UNSPECIFIED
[2020-04-12] MEDS ORDERED: WARFARIN NA 1 MG TABLET PO SCH (18:00)
[2020-04-13] MEDS: LEVOTHYROXINE NA 75 MCG TABLET (FP) PO SCH (06:13)
[2020-04-13] MEDS: BENZOCAINE/MENTH/CETYLPYRD CL 1 EACH LOZENGE MM PRN (06:13)
[2020-04-13 06:57] LABS: INR 3.73 (0.83-1.09); PROTHROMBIN TIME (PATIENT) 44.6 SEC (9.7-13.0)
[2020-04-13] MEDS ORDERED: PT OWN MED DRAWER 7, Y5N ONE ×3 (09:10→12:22)
[2020-04-13] MEDS: TOPIRAMATE 25 MG TABLET PO SCH (09:14)
[2020-04-13] MEDS: metoPROLOL SUCCINATE 25 MG TAB.SR.24H (FP) PO SCH (09:14)
[2020-04-13] MEDS: ANASTROZOLE 1 MG TABLET PO SCH (09:14)
[2020-04-13] MEDS: FUROSEMIDE 20 MG TABLET (FP) PO SCH (09:14)
--- NOTE | 2020-04-13 09:50 | PN ---
Progress Note, Physician Chief Complaint: Events noted Not in distress History of Present Illness: Patient was seen and examined. Awake and alert. Chart was reviewed Denies chest pain, SOB of palpitations - Current Medication List Current Medications: Active Medications Acetaminophen (Tylenol -) 650 mg PO Q6H PRN PRN Reason: PAIN 1-3 Last Admin: 04/12/20 21:11 Dose: 650 mg Documented by: Anastrozole (Arimidex -) 1 mg PO DAILY [facility] Last Admin: 04/13/20 09:14 Dose: 1 mg Documented by: Benzocaine/Menthol (Cepacol Lozenge -) 1 each MM PRN PRN PRN Reason: SORE THROAT Last Admin: 04/13/20 06:13 Dose: 1 each Documented by: Furosemide (Lasix -) 20 mg PO DAILY [facility] Last Admin: 04/13/20 09:14 Dose: 20 mg Documented by: Guaifenesin (Robitussin -) 10 ml PO Q4H PRN PRN Reason: COUGH Last Admin: 04/12/20 14:13 Dose: 10 ml Documented by: Levothyroxine Sodium (Synthroid -) 75 mcg PO DAILY@0700 [facility] Last Admin: 04/13/20 06:13 Dose: 75 mcg Documented by: Metoprolol Succinate (Toprol Xl -) 12.5 mg PO DAILY [facility] Last Admin: 04/13/20 09:14 Dose: 12.5 mg Documented by: Phenol/Menthol (Chloraseptic -) 1 spray MM Q6HPO PRN PRN Reason: SORE THROAT Last Admin: 04/12/20 09:09 Dose: 1 spray Documented by: Topiramate (Topamax -) 25 mg PO BID [facility] Last Admin: 04/13/20 09:14 Dose: 25 mg Documented by: Warfarin Sodium (Coumadin -) 1 mg PO DAILY@1800 [facility] Last Admin: 04/12/20 17:07 Dose: 1 mg Documented by: - Objective Vital Signs: Vital Signs Temperature 98.6 F 04/13/20 09:07 Pulse Rate 68 04/13/20 09:07 Respiratory Rate 18 04/13/20 09:07 Blood Pressure 143/56 L 04/13/20 09:07 O2 Sat by Pulse Oximetry (%) 99 04/13/20 09:07 Neck: Yes: Supple Cardiovascular: Yes: Regular Rate and Rhythm, S1, S2 Respiratory: Yes: Diminished Gastrointestinal: Yes: Normal Bowel Sounds, Soft. No: Tenderness Edema: No Additional Findings/Remarks: - Review of Systems Constitutional: denies: Chills, Fever Cardiovascular: denies: Shortness of Breath. denies: Chest Pain, Palpitations Respiratory: denies: SOB. denies: Cough, Hemoptysis, Orthopnea, PND Gastrointestinal: denies: Abdominal Pain, Constipation, Diarrhea, Melena, Nausea, Rectal Bleeding, Vomiting Musculoskeletal: denies: Joint Pain. denies: Back Pain Neurological: denies: Dizziness, Headache. denies: Change in Speech, Confusion, Seizure, Syncope, Unsteady Gait Labs: CBC, BMP 04/10/20 00:15 04/11/20 07:20 INR, PTT INR 3.73 (0.83-1.09) H 04/13/20 05:45 Problem List - Problems (1) COPD (chronic obstructive pulmonary disease) Code(s): J44.9 - CHRONIC OBSTRUCTIVE PULMONARY DISEASE, UNSPECIFIED (2) Chest pain Code(s): R07.9 - CHEST PAIN, UNSPECIFIED Qualifiers: Chest pain type: unspecified Qualified Code(s): R07.9 - Chest pain, unspecified (3) Dyspnea Code(s): R06.00 - DYSPNEA, UNSPECIFIED Qualifiers: Dyspnea type: shortness of breath Qualified Code(s): R06.02 - Shortness of breath; R06.00 - Dyspnea, unspecified; R06.01 - Orthopnea (4) Atrial fibrillation Code(s): I48.91 - UNSPECIFIED ATRIAL FIBRILLATION Qualifiers: Atrial fibrillation type: paroxysmal Qualified Code(s): I48.0 - Paroxysmal atrial fibrillation (5) CAD (coronary artery disease) Code(s): I25.10 - ATHSCL HEART DISEASE OF [place] CORONARY ARTERY W/O ANG PCTRS Qualifiers: Coronary Disease-Associated Artery/Lesion type: [place] artery [place] vs. transplanted heart: [place] heart Associated angina: without angina Qualified Code(s): I25.10 - Atherosclerotic heart disease of [place] coronary artery without angina pectoris (6) Hyperlipidemia Code(s): E78.5 - HYPERLIPIDEMIA, UNSPECIFIED Qualifiers: Hyperlipidemia type: pure hypercholesterolemia Qualified Code(s): E78.00 - Pure hypercholesterolemia, unspecified; E78.0 - Pure hypercholesterolemia (7) Hypertension Code(s): I10 - ESSENTIAL (PRIMARY) HYPERTENSION Qualifiers: Hypertension type: essential hypertension Qualified Code(s): I10 - Essential (primary) hypertension (8) Hypothyroidism Code(s): E03.9 - HYPOTHYROIDISM, UNSPECIFIED Qualifiers: Hypothyroidism type: acquired Qualified Code(s): E03.9 - Hypothyroidism, unspecified Assessment/Plan 1. Atypical recurrent chest pain 2. LV systolic dysfunction 3. CAD, angina pectoris 4. Hyperlipidemia 5. HTN 6. History of PE on chronic Coumadin therapy with therapeutic INR 7. PAF currently in sinus 8. hypothyroidism 9. Seizure disorder 10. hypokalemia 11. Leukocytosis PLAN: 1. Continue Lipitor 40 mg QD, Lasix 20 mg QD and Toprol XL 25 mg QD 2. Coumadin per INR 3. Discharge home from cardiac standpoint with f/u in office with Dr. Kenzie Bonilla [facility] Cla[facility] Bonilla MD
[2020-04-13 13:57] VITALS: BP 126/78; PULSE 88; TEMP 98.2
--- NOTE | 2020-04-13 16:03 | DS ---
Physical Examination Vital Signs: Vital Signs Temperature 98.2 F 04/13/20 13:56 Pulse Rate 88 04/13/20 13:56 Respiratory Rate 14 04/13/20 13:56 Blood Pressure 126/78 04/13/20 13:56 O2 Sat by Pulse Oximetry (%) 99 04/13/20 09:07 Constitutional: Yes: Well Nourished, No Distress, Calm Eyes: Yes: Conjunctiva Clear Cardiovascular: Yes: Regular Rate and Rhythm Respiratory: Yes: Regular Gastrointestinal: Yes: Normal Bowel Sounds, Soft Edema: No Neurological: Yes: WNL Labs: CBC, BMP 04/10/20 00:15 04/11/20 07:20 INR, PTT INR 3.73 (0.83-1.09) H 04/13/20 05:45 Discharge Summary Problems reviewed: Yes Reason For Visit: CHEST PAIN Current Active Problems Chest pain (Acute) Gall bladder stones (Acute) LBBB (left bundle branch block) (Acute) Long-term (current) use of anticoagulants, INR goal 2.0-3.0 (Acute) Neoplasm of uncertain behavior of lung (Acute) headaches HTN Breast cancer lipidemia alopecia pharyngitis Hypothyroidism pATF Assisted a/c Hospital Course: admitted for central chest pain, sudden in onset and non radiating. She reported some SOB, no sweats, dizziness. The pain subsuded while in ER, CT angio showed no PE; the EKG was non acute; Chest CT did show old Lt sided lung parenchymal le sions but no fluid or PNA. Her VSS. The troponions were negative, during her saty she developed a "sore throat" which she had a throat C&S done showing no strept; she was Given Zithromax and lozenges. Her COVID swab was negative. Her chest pain significantly abated. She was seen by Cardiology twice who cleared her for D/c. Condition: Stable - Instructions Diet, Activity, Other Instructions: resume uysual diet and medications NO WARFARIN TODAY Referrals: Garett Duran MD [Primary Care Provider] - Disposition: HOME - Home Medications Comprehensive Discharge Medication List: Ambulatory Orders Anastrozole [Arimidex -] 1 mg PO DAILY 12/19/17 Atorvastatin Ca [Lipitor] 40 mg PO DAILY 12/19/17 Budesonide/Formeterol Fumarate [SYMBICORT 160/4.5mcg -] 2 inh PO BID 12/19/17 Furosemide [Lasix] 40 mg PO DAILY 12/19/17 Levothyroxine [Synthroid -] 75 mcg PO DAILY 12/19/17 Metoprolol Tartrate 25 mg PO DAILY 12/19/17 Nitroglycerin Sublingual [Nitrostat -] 0.4 mg SL PRN PRN 12/19/17 Topiramate 25 mg PO BID 12/19/17 Albuterol Sulfate Inhaler - [Ventolin HFA Inhaler -] 2 puff IH Q4H PRN inhaler 12/20/17 Aspirin [ASA -] 81 mg PO DAILY tab.chew 12/20/17 Warfarin Na [Coumadin -] 2 mg PO DAILY@1800 tablet 01/22/20 Zithromax Tusin
== END 2020-04-13 17:10 | disposition home or self-care (01) ==
LOC: JER 23:10 → JERBED 04-10 05:46 → J4S 04-10 19:46
PROVIDERS: ADMIT Internal Medicine; ATTEND Internal Medicine
PROC: 3E023GC Introduction of Other Therapeutic Substance into Muscle, Percutaneous Approach (ICD-10-PCS; principal; 2020-04-10)
DX: R07.89 Other chest pain (principal); J44.9 Chronic obstructive pulmonary disease, unspecified; I10 Essential (primary) hypertension; E78.5 Hyperlipidemia, unspecified; G40.909 Epilepsy, unspecified, not intractable, without status epilepticus; I25.10 Atherosclerotic heart disease of native coronary artery without angina pectoris; E03.9 Hypothyroidism, unspecified; K52.9 Noninfective gastroenteritis and colitis, unspecified; J30.9 Allergic rhinitis, unspecified; Z96.651 Presence of right artificial knee joint; Z87.891 Personal history of nicotine dependence; E66.01 Morbid (severe) obesity due to excess calories; Z68.31 Body mass index [BMI] 31.0-31.9, adult; I48.0 Paroxysmal atrial fibrillation; Z79.01 Long term (current) use of anticoagulants; I44.7 Left bundle-branch block, unspecified; L65.9 Nonscarring hair loss, unspecified; Z29.9 Encounter for prophylactic measures, unspecified
CPT/HCPCS: 36415; 71045-TC-FY; 71275-TC; 80048; 80053; 80061; 82550; 83721; 83880; 84443; 84484; 85025; 85379; 85610; 85730; 87070; 93005; 93010; 99285-25; G0378; Q9967; U0003

== ENCOUNTER 2020-08-08 21:26 | Inpatient (IN) | payer OTHER ==
[2020-08-08 21:46] VITALS: BMI 33.3
[2020-08-08 23:25] LABS: BASO % 0.8 % (0-2.0); EOS % 0.7 % (0-4.5); HEMATOCRIT 36.3 % (32.4-45.2); HEMOGLOBIN 11.8 GM/dL (10.7-15.3); LYMPH % 19.2 % (8-40); MCH 30.2 pg (25.7-33.7); MCHC 32.6 g/dl (32.0-36.0); MEAN CELL VOLUME 92.7 fl (80-96); MEAN PLT VOLUME 8.1 fl (7.5-11.1); MONO % 3.8 % (3.8-10.2); NEUT % 75.5 % (42.8-82.8); PLATELET COUNT 309 K/MM3 (134-434); RBC 3.91 M/mm3 (3.60-5.2); RDW 14.7 % (11.6-15.6); WHITE BLOOD COUNT 10.2 K/mm3 (4.0-10.0)
[2020-08-08 23:35] LABS: INR 1.73 (0.83-1.09); PROTHROMBIN TIME (PATIENT) 20.9 SEC (9.7-13.0)
[2020-08-08 23:38] LABS: ACTIVATED PTT 31.2 SECONDS (25.2-36.5)
[2020-08-08 23:49] LABS: CHLORIDE 108 mmol/L (98-107); SODIUM 144 mmol/L (136-145)
[2020-08-08 23:51] LABS: ALBUMIN 3.1 g/dl (3.4-5.0); ANION GAP 7 MMOL/L (8-16); CALCIUM 9.3 mg/dL (8.5-10.1); CO2 28 mmol/L (21-32)
[2020-08-08 23:52] LABS: GLUCOSE,RANDOM 131 mg/dL (74-106)
[2020-08-08 23:54] LABS: CREATININE 1.2 mg/dL (0.55-1.3); SGOT/AST 15 U/L (15-37)
[2020-08-08 23:57] LABS: ALK PHOS 98 U/L (45-117)
[2020-08-09 00:43] LABS: BILIRUBIN,TOTAL 0.3 mg/dL (0.2-1); SGPT/ALT 19 U/L (13-61)
[2020-08-09] MEDS ORDERED: ASPIRIN 81 MG CHEWABLE TABLETS PO ONE (06:50)
[2020-08-09] MEDS ORDERED: ACETAMINOPHEN 325 MG TABLET (FP) PO PRN (06:53)
[2020-08-09] MEDS: LEVOTHYROXINE NA 75 MCG TABLET (FP) PO SCH (09:00)
[2020-08-09] MEDS ORDERED: ENOXAPARIN NA (PORCINE) 40 MG/0.4 ML DISP.SYRIN SQ SCH (10:00)
[2020-08-09] MEDS ORDERED: TOPIRAMATE 25 MG TABLET ONE (10:33)
[2020-08-09] MEDS ORDERED: FUROSEMIDE 40 MG TABLET (FP) ONE (10:33)
[2020-08-09] MEDS ORDERED: PANTOPRAZOLE SODIUM 40 MG/100 ML BAG IVPB ONE (10:33)
[2020-08-09] MEDS ORDERED: metoPROLOL SUCCINATE 25 MG TAB.SR.24H (FP) ONE (10:33)
[2020-08-09] MEDS ORDERED: LIDOCAINE 5% TOPICAL PATCH ONE (10:33)
[2020-08-09] MEDS ORDERED: ENOXAPARIN NA (PORCINE) 40 MG/0.4 ML DISP.SYRIN SQ ONE (10:33)
[2020-08-09] MEDS: LIDOCAINE 5% TOPICAL PATCH TP SCH (11:12)
[2020-08-09] MEDS: ANASTROZOLE 1 MG TABLET PO SCH (11:12)
[2020-08-09] MEDS: FUROSEMIDE 40 MG TABLET (FP) PO SCH (11:12)
[2020-08-09] MEDS: TOPIRAMATE 25 MG TABLET PO SCH ×2 (11:12→22:12)
[2020-08-09] MEDS: metoPROLOL SUCCINATE 25 MG TAB.SR.24H (FP) PO SCH (11:13)
[2020-08-09 11:20] LABS: HEMATOCRIT 32.5 % (32.4-45.2); HEMOGLOBIN 10.8 GM/dL (10.7-15.3); MCH 30.8 pg (25.7-33.7); MCHC 33.1 g/dl (32.0-36.0); MEAN CELL VOLUME 93.2 fl (80-96); MEAN PLT VOLUME 8.2 fl (7.5-11.1); PLATELET COUNT 295 K/MM3 (134-434); RBC 3.49 M/mm3 (3.60-5.2); RDW 14.6 % (11.6-15.6); WHITE BLOOD COUNT 7.9 K/mm3 (4.0-10.0)
[2020-08-09 11:45] LABS: CHLORIDE 106 mmol/L (98-107); SODIUM 142 mmol/L (136-145)
[2020-08-09 11:48] LABS: CALCIUM 9.1 mg/dL (8.5-10.1)
[2020-08-09 11:49] LABS: ANION GAP 6 MMOL/L (8-16); BLOOD UREA NITROGEN 14.6 mg/dL (7-18); CO2 30 mmol/L (21-32); GLUCOSE,RANDOM 106 mg/dL (74-106); MAGNESIUM 2.3 mg/dL (1.8-2.4)
[2020-08-09 11:51] LABS: ALBUMIN 2.6 g/dl (3.4-5.0)
[2020-08-09 11:52] LABS: CREATININE 1.1 mg/dL (0.55-1.3); SGOT/AST 25 U/L (15-37); SGPT/ALT 17 U/L (13-61)
[2020-08-09 11:54] LABS: PHOSPHOROUS 2.7 mg/dL (2.5-4.9); TOT PROT 6.4 g/dl (6.4-8.2)
[2020-08-09 11:55] LABS: ALK PHOS 84 U/L (45-117)
[2020-08-09 11:56] LABS: BILIRUBIN,TOTAL 0.3 mg/dL (0.2-1)
[2020-08-09 16:31] LABS: INR 2.02 (0.83-1.09)
[2020-08-09] MEDS ORDERED: WARFARIN NA 1 MG TABLET PO SCH ×2 (18:00)
[2020-08-09] MEDS ORDERED: WARFARIN NA 1 MG TABLET ONE (18:55)
[2020-08-09] MEDS: LIDOCAINE PATCH REMOVAL MC SCH ×2 (18:59→22:11)
[2020-08-09] MEDS ORDERED: ATORVASTATIN CA 40 MG TABLET (FP) PO SCH (22:00)
[2020-08-10] MEDS: LEVOTHYROXINE NA 75 MCG TABLET (FP) PO SCH (06:20)
[2020-08-10 08:10] LABS: EOS % 3.8 % (0-4.5); HEMATOCRIT 30.6 % (32.4-45.2); HEMOGLOBIN 10.4 GM/dL (10.7-15.3); LYMPH % 42.7 % (8-40); MCH 31.4 pg (25.7-33.7); MCHC 33.9 g/dl (32.0-36.0); MEAN CELL VOLUME 92.9 fl (80-96); MEAN PLT VOLUME 8.3 fl (7.5-11.1); MONO % 6.1 % (3.8-10.2); NEUT % 46.4 % (42.8-82.8); PLATELET COUNT 255 K/MM3 (134-434); RDW 14.4 % (11.6-15.6); WHITE BLOOD COUNT 7.6 K/mm3 (4.0-10.0)
[2020-08-10 08:31] LABS: BLOOD UREA NITROGEN 16.2 mg/dL (7-18); CALCIUM 8.8 mg/dL (8.5-10.1); MAGNESIUM 2.3 mg/dL (1.8-2.4)
[2020-08-10 08:32] LABS: ALBUMIN 2.6 g/dl (3.4-5.0)
[2020-08-10 08:35] LABS: PHOSPHOROUS 3.8 mg/dL (2.5-4.9)
[2020-08-10 08:36] LABS: TOT PROT 5.9 g/dl (6.4-8.2)
[2020-08-10 08:37] LABS: BILIRUBIN,TOTAL 0.3 mg/dL (0.2-1)
[2020-08-10] MEDS ORDERED: ASPIRIN 81 MG CHEWABLE TABLETS PO SCH (10:00)
[2020-08-10] MEDS ORDERED: POTASSIUM CHLORIDE TABS 10 MEQ TABLET.ER (FP) PO ONE (10:06)
[2020-08-10] MEDS ORDERED: PT OWN MED DRAWER 7, Y5N ONE (10:30)
[2020-08-10] MEDS: ANASTROZOLE 1 MG TABLET PO SCH (10:42)
[2020-08-10] MEDS: TOPIRAMATE 25 MG TABLET PO SCH (10:42)
[2020-08-10] MEDS: FUROSEMIDE 40 MG TABLET (FP) PO SCH (10:43)
[2020-08-10] MEDS: metoPROLOL SUCCINATE 25 MG TAB.SR.24H (FP) PO SCH (10:43)
[2020-08-10] MEDS: LIDOCAINE 5% TOPICAL PATCH TP SCH (10:48)
[2020-08-10] MEDS: KCL 10 MEQ IVPB 10 MEQ/100 ML INFUS.BAG IVPB SCH ×3 (10:48→14:06)
[2020-08-10 12:01] LABS: INR 1.92 (0.83-1.09); PROTHROMBIN TIME (PATIENT) 23.2 SEC (9.7-13.0)
[2020-08-10 14:48] VITALS: BP 128/57; PULSE 65; TEMP 98.2
== END 2020-08-10 17:21 | disposition home or self-care (01) | DRG 313 ==
LOC: JER 21:26 → JERBED 23:56 → J4W 08-09 21:09
PROVIDERS: ADMIT Hospitalist; ATTEND Internal Medicine
DX: R07.89 Other chest pain (principal); I50.32 Chronic diastolic (congestive) heart failure; J44.9 Chronic obstructive pulmonary disease, unspecified; I11.0 Hypertensive heart disease with heart failure; E03.9 Hypothyroidism, unspecified; R91.8 Other nonspecific abnormal finding of lung field; E78.5 Hyperlipidemia, unspecified; G40.909 Epilepsy, unspecified, not intractable, without status epilepticus; I44.7 Left bundle-branch block, unspecified; I48.0 Paroxysmal atrial fibrillation; K59.09 Other constipation; I25.119 Atherosclerotic heart disease of native coronary artery with unspecified angina pectoris; M54.5 Low back pain; J30.9 Allergic rhinitis, unspecified; Z86.711 Personal history of pulmonary embolism; Z85.3 Personal history of malignant neoplasm of breast; Z96.651 Presence of right artificial knee joint
CPT/HCPCS: 36415; 71046-TC-FY; 71275-TC; 80053; 80061; 82550; 83540; 83550; 83721; 83735; 84100; 84443; 84484; 85025; 85027; 85379; 85610; 85730; 93005; 93010; 93970-TC; 99285-25; C9803; Q9967; U0003

== ENCOUNTER 2021-06-01 06:55 | Day surgery (SDC) | payer OTHER ==
[2021-05-27 14:27] VITALS: BMI 31.4
[2021-06-01] MEDS ORDERED: CARBACHOL 0.01% INTRA-OCULAR 1.5 ML VIAL ONE (07:22)
[2021-06-01] MEDS ORDERED: BSS (NA/CA/MG/K) BALANCED SALT SOLUTION OPHTH SOLN 15 ML BOTTLE ONE (07:22)
[2021-06-01] MEDS ORDERED: TETRACAINE 0.5% OPHTH SOLN 2 ML BOTTLE ONE (07:22)
[2021-06-01] MEDS ORDERED: LIDOCAINE 1% P/F 10 MG/ML VIAL ONE (07:22)
[2021-06-01] MEDS ORDERED: NEO/POLYMYX B SULF/DEXAMETH OPHTHALMIC 5ML BOTTLE ONE (07:22)
[2021-06-01] MEDS: TROPICAMIDE 1% OPHTH SOLN 15 ML BOTTLE ONE ×3 (07:30→07:40)
[2021-06-01] MEDS: PHENYLEPHRINE 2.5% OPHTH SOLN 15 ML BOTTLE ONE ×3 (07:30→07:40)
[2021-06-01] MEDS: CIPROFLOXACIN 0.3% EYE DROPS 5 ML BOTTLE ONE ×3 (07:30→07:40)
[2021-06-01] MEDS: CYCLOPENTOLATE 2% OPHTH SOLN 2 ML BOTTLE ONE ×3 (07:30→07:40)
[2021-06-01] MEDS ORDERED: MIDAZOLAM HCL 2 MG/2 ML SINGLE DOSE VIAL ONE (08:30)
[2021-06-01 09:21] VITALS: TEMP 97.8
[2021-06-01 09:37] VITALS: BP 115/60; PULSE 78
== END 2021-06-01 09:49 | disposition home or self-care (01) ==
LOC: FASU 06:55
PROVIDERS: ATTEND Ophthalmology
PROC: 08RK3JZ Replacement of Left Lens with Synthetic Substitute, Percutaneous Approach (ICD-10-PCS; principal; 2021-06-01 08:52)
DX: H26.8 Other specified cataract (principal)

== ENCOUNTER 2021-08-03 09:21 | Day surgery (SDC) | payer OTHER ==
[2021-07-28 11:58] VITALS: BMI 31.4
[2021-08-03] MEDS: CIPROFLOXACIN 0.3% EYE DROPS 5 ML BOTTLE ONE ×3 (09:55→10:05)
[2021-08-03] MEDS: CYCLOPENTOLATE 2% OPHTH SOLN 2 ML BOTTLE ONE ×3 (09:55→10:05)
[2021-08-03] MEDS: TROPICAMIDE 1% OPHTH SOLN 15 ML BOTTLE ONE ×3 (09:55→10:05)
[2021-08-03] MEDS: PHENYLEPHRINE 2.5% OPHTH SOLN 15 ML BOTTLE ONE ×3 (09:55→10:05)
[2021-08-03] MEDS ORDERED: CARBACHOL 0.01% INTRA-OCULAR 1.5 ML VIAL ONE (10:42)
[2021-08-03] MEDS ORDERED: NEO/POLYMYX B SULF/DEXAMETH OPHTHALMIC 5ML BOTTLE ONE (10:42)
[2021-08-03] MEDS ORDERED: BSS (NA/CA/MG/K) BALANCED SALT SOLUTION OPHTH SOLN 15 ML BOTTLE ONE (10:42)
[2021-08-03] MEDS ORDERED: LIDOCAINE 1% P/F 10 MG/ML VIAL ONE (10:42)
[2021-08-03] MEDS ORDERED: TETRACAINE 0.5% OPHTH SOLN 2 ML BOTTLE ONE (10:42)
[2021-08-03] MEDS ORDERED: MIDAZOLAM HCL 2 MG/2 ML SINGLE DOSE VIAL ONE (10:49)
[2021-08-03] MEDS ORDERED: ONDANSETRON 4 MG/2 ML VIAL ONE (10:54)
[2021-08-03 11:24] VITALS: TEMP 98.3
[2021-08-03 11:58] VITALS: BP 112/62; PULSE 75
== END 2021-08-03 11:55 | disposition home or self-care (01) ==
LOC: FASU 09:21
PROVIDERS: ATTEND Ophthalmology
PROC: 08RJ3JZ Replacement of Right Lens with Synthetic Substitute, Percutaneous Approach (ICD-10-PCS; principal; 2021-08-03 10:58)
DX: H26.8 Other specified cataract (principal)